=== PATIENT | male | born 1955 | race Caucasian/White ===

== ENCOUNTER 2017-04-11 11:46 | Day surgery (SDC) | payer MEDICARE ==
[~2017-04-11] VITALS: Ht 177.8 cm; Wt 61.2 kg
[~2017-04-11 11:46] MED LIST: /CELE20CA; CELE1CAP7 PO; COLA100C2; HYDR-3713 PO; KEFL500C; LYRI150C PO; OMEP40CA2 PO; PERC5TAB8; PRAV40TA2 PO; PREG25CA
[2017-04-11] MEDS ORDERED: dexameTHASONE 4 MG/ML 1ML VIAL (J1100) IV ONE (12:00)
[2017-04-11] MEDS ORDERED: LR 1,000 ML IV ONE (12:00)
[2017-04-11] MEDS ORDERED: OXYMETAZOLINE NASAL SPRAY (AFRIN) As Ordered ONE (12:56)
[2017-04-11] MEDS ORDERED: LIDOCAINE W/EPINEPHRINE 1% 20ML VIAL As Ordered ONE (12:56)
[2017-04-11] MEDS ORDERED: ALBUTEROL SULFATE 2.5 MG/0.5 ML INH NEB SOLN As Ordered ONE (13:13)
[2017-04-11] MEDS ORDERED: METHYLENE BLUE 0.5% (5MG/ML) 10 ML AMP (PROVAYBLUE)(Q9968 PER 1MG) As Ordered ONE (13:39)
[2017-04-11] MEDS ORDERED: fentaNYL 100 MCG/2 ML INJECTION (J3010) As Ordered ONE (13:47)
[2017-04-11] MEDS ORDERED: MIDAZOLAM INJ 2 MG/2 ML VIAL (J2250) As Ordered ONE (13:47)
[2017-04-11] MEDS ORDERED: SUCCINYLCHOLINE 100 MG/5 ML SYRINGE (J0330) As Ordered ONE (13:55)
[2017-04-11] MEDS ORDERED: ONDANSETRON 4MG/2ML VIAL (J2405) As Ordered ONE (13:55)
[2017-04-11] MEDS ORDERED: PROPOFOL 200 MG/20 ML VIAL As Ordered ONE (13:55)
[2017-04-11] MEDS ORDERED: ROCURONIUM BROMIDE 50 MG/5 ML VIAL/SYRINGE As Ordered ONE (13:55)
[2017-04-11] MEDS ORDERED: SUGAMMADEX SODIUM 500 MG/5 ML VIAL (BRIDION) As Ordered ONE (14:10)
[2017-04-11] MEDS: fentaNYL 100 MCG/2 ML INJECTION (J3010) IV PRN ×2 (15:10→15:19)
[2017-04-11] MEDS ORDERED: PERCOCET 5MG/325MG TAB PO PRN (15:15)
[2017-04-11] MEDS ORDERED: ONDANSETRON 4MG/2ML VIAL (J2405) IV PRN (15:15)
[2017-04-11] MEDS ORDERED: HYDROmorphone HCL 1 MG/ML SYRINGE (J1170) IV PRN (15:15)
[2017-04-11] MEDS ORDERED: LR 1,000 ML IV SCH ×2 (15:15)
[2017-04-11 15:55] VITALS: BP 134/77
--- NOTE | 2017-04-19 15:37 | RO ---
DATE OF PROCEDURE: 04/11/2017 PREOPERATIVE DIAGNOSIS: Dysphonia. POSTOPERATIVE DIAGNOSIS: Dysphonia. PROCEDURE: Direct suspension microlaryngoscopy with biopsy of the left and the right vocal cords. SURGEON: Angel Alonzo MD DIGITAL MUSIC INSTRUCTOR: ANESTHESIA: General. CLINICAL PREAMBLE: This 62-year-old man presented to the office with history of dysphonia. Flexible laryngoscopy revealed irregular mucosa of the left as well as the right vocal cords. Management options including surgery listed above have been discussed. Patient understood and consented to the procedure. DESCRIPTION OF PROCEDURE: Patient was identified in preoperative holding and brought to the operating room in stable condition. In supine position on the operating table, patient received general anesthesia followed by orotracheal intubation without incident. Patient prepped and draped in usual sterile fashion for the procedure. Bimanual palpation of the oral tongue, base of tongue, lateral and posterior pharyngeal wall was negative for palpable nodule. The upper dentition was protected. The Dedo-Pilling laryngoscope was introduced into the oral cavity. Inspection of the mucosa of the oral cavity, oropharynx, supraglottis, hypopharynx was carried out and was found to be free of mucosal lesion. The Dedo-Pilling laryngoscope was then suspended on a Arndt stand to allow visualization of the glottis. The right vocal cord appeared to have mucosal lesion on its entire length. The lesion crossed the anterior commissure onto the anterior one-third of the left vocal cord. Biopsy was performed from the right as well as the left vocal cords. Hemostasis was achieved using pledgets soaked in Afrin solution. At the end of the procedure, sponge and instrument counts were correct. No complication was encountered. Estimated blood loss was less than 1 mL. General anesthesia was reversed, and patient was extubated and brought to recovery room in stable condition.
[2017-06-28] MEDS ORDERED: SILV40CR EXT (15:27)
== END 2017-04-11 16:05 | disposition home or self-care (01) ==
LOC: M SDC 11:46
PROVIDERS: ATTEND Otolaryngology
DX: C32.0 Malignant neoplasm of glottis (principal); R49.0 Dysphonia; G60.9 Hereditary and idiopathic neuropathy, unspecified; F17.210 Nicotine dependence, cigarettes, uncomplicated; M54.5 Low back pain; Z86.79 Personal history of other diseases of the circulatory system; Z79.899 Other long term (current) drug therapy
CPT/HCPCS: 31536; 88305; 88342; J0330; J1100; J2250; J2405; J3010

== ENCOUNTER → 2017-04-26 | Outpatient (CLI) | payer MEDICARE ==
[~2017-04-26] MED LIST changes: +SILV40CR EXT
--- NOTE | 2017-04-26 16:59 | REP ---
Whole body PET CT scan: The study is correlated with the CT of the neck dated 01/17/2017. Whole-body scanning is performed from skull base to the upper thighs. Neck and supraclavicular areas: There are no hypermetabolic foci. Chest: There are no hypermetabolic foci. Abdomen, pelvis and upper thighs: There is borderline hypermetabolic uptake in a normal size left femoral noted with a standard uptake value of 3.7. There are no other hypermetabolic foci. Impression: There is borderline hypermetabolic uptake in a normal size left femoral noted. Otherwise, there are no hypermetabolic foci. Specifically there are no foci in the neck or supraclavicular areas. The studies performed with 10 mCi of F 18 FDG Signed by Logan Benitez MD 04/26/2017 04:50 P
== END ==
LOC: M PLARAD 11:49
PROVIDERS: ATTEND Otolaryngology
DX: C32.0 Malignant neoplasm of glottis (principal)
CPT/HCPCS: 78815; A9552

== ENCOUNTER → 2017-05-02 | Outpatient (CLI) | payer MEDICARE ==
--- NOTE | 2017-05-03 05:15 | RADONC ---
RADIATION ONCOLOGY CONSULTATION NOTE: DATE: 05/02/2017 CHART NUMBER: [id number]. DIAGNOSIS: Vocal cord cancer. STAGE: Stage I, [id number]. ECOG PERFORMANCE STATUS: Zero. CONSULTATION NOTE: Mr. 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 HISTORY OF PRESENT ILLNESS: The patient was in his usual state of health until approximately 3 years ago, when he first noticed some hoarseness. This hoarseness became more progressive over the past 3 months. He was referred to Dr. Alonzo and laryngoscopic evaluation was undertaken, which revealed irregular mucosa over both the left and right vocal cords. A biopsy was done and pathology revealed well-differentiated invasive squamous cell carcinoma involving both vocal cords. He is now being referred to us for consideration of definitive external beam radiation therapy. PAST MEDICAL HISTORY: The patient's past medical history is positive for arthritis and a previous DVT. ALLERGIES: The patient has NO KNOWN DRUG ALLERGIES. SOCIAL HISTORY: The patient has smoked one half pack of cigarettes per day for 45 years. He drinks alcohol rarely. FAMILY HISTORY: The patient's family history is positive for laryngeal carcinoma in both parents. REVIEW OF SYSTEMS: The patient's review of systems is positive for some physical limitations secondary to decreased energy and generalized weakness. He reports some discomfort upon swallowing and anorexia with some weight loss. He denies nausea, vomiting, fevers, chills, night sweats, diplopia, headaches, chest pain, shortness of breath, urinary or bowel difficulties, bone pain or neurological problems. PHYSICAL EXAMINATION: The patient is a well-developed, well-nourished white male in no acute distress. HEENT exam is normocephalic, atraumatic. Extraocular movements are intact. Oral cavity examination reveals no evidence of nodularity ulceration or disease. Fiberoptic laryngoscopic evaluation was deferred. There is no palpable cervical, supraclavicular, infraclavicular, axillary or inguinal lymphadenopathy present. His lungs are generally clear to auscultation and percussion. His heart has regular rate and rhythm. His abdomen is benign with no hepatosplenomegaly, masses or tenderness. Skeletal examination reveals no tenderness to pressure percussion of the bony skeleton. Extremities reveal no clubbing, cyanosis or edema. Neurologic exam is grossly intact, as is the remainder of the physical examination. ASSESSMENT: Mr. 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 Clearly the patient is a candidate for this treatment and I have so informed him. I have discussed with the patient in detail the potential benefits as well as possible acute and chronic sequelae of external beam radiation therapy. We have discussed logistics of treatment planning, simulation and subsequent fractionated daily radiation treatments. I have scheduled the patient for the next available simulation slot and radiation treatments will begin subsequently. Thank you for allowing us to participate in the care of this very pleasant gentleman. If I could be of any further assistance or provide you with any information, please free to contact me anytime. As always, warm regards. cc: MD Angel Maurer MD
== END ==
LOC: M ONCR 13:59
PROVIDERS: ATTEND Radiology Radiation Oncology
DX: C32.0 Malignant neoplasm of glottis (principal)

== ENCOUNTER 2017-05-09 14:07 | Outpatient (RCR) | payer MEDICARE ==
[~2017-05-09 14:07] MED LIST changes: -SILV40CR EXT
--- NOTE | 2017-05-10 07:42 | RADONC ---
RADIATION ONCOLOGY SIMULATION NOTE DATE: 05/09/2017 CHART NUMBER: [id number] Mr. Dsouza was taken to the CT scan for CT simulation of his larynx field. CT was accomplished without difficulty or discomfort. Radiation treatment planning is underway and radiation treatments will begin subsequently. An immobilization device including a mask was made. It was made without difficulty or discomfort. It will be used throughout the course of treatment. I was physically present throughout the course of CT simulation.
[2017-06-28] MEDS ORDERED: SILV40CR EXT (15:27)
== END 2017-05-11 ==
LOC: M ONCR 14:07
PROVIDERS: ATTEND Radiology Radiation Oncology
DX: C32.0 Malignant neoplasm of glottis (principal)

== ENCOUNTER → 2017-05-09 | Outpatient (CLI) | payer MEDICARE ==
[2017-05-09 15:47] LABS: MEAN CORPUSCULAR HEMOGLOBIN 31.9 pg (27.0-33.0); MEAN CORPUSCULAR HGB CONC 33.9 g/dl (32.0-36.5); MEAN CORPUSCULAR VOLUME 93.8 fl (80.0-96.0); RED CELL DISTRIBUTION WIDTH 14.1 % (11.5-14.5); WHITE BLOOD COUNT 6.3 K/mm3 (4.0-10.0)
== END ==
LOC: M RAD 13:55
PROVIDERS: ATTEND Radiology Radiation Oncology
DX: C32.0 Malignant neoplasm of glottis (principal)

== ENCOUNTER 2017-05-12 14:14 | Outpatient (RCR) | payer MEDICARE ==
--- NOTE | 2017-05-23 07:55 | RADONC ---
RADIATION ONCOLOGY PROGRESS NOTE: DATE: 05/22/2017 CHART NUMBER: [id number] Mr. Dsouza underwent his first fraction of radiation today to his larynx for a dose of 225 cGy. Radiation was tolerated without difficulty or discomfort. The patient's review of systems continues to show some hoarseness and discomfort upon swallowing, which is unchanged since time of consultation. His physical exam continues to show no skin changes secondary to radiation which just began today. The remainder of his physical exam also remained totally unchanged. Mr. Dsouza tolerated his treatments quite well and radiation will continue as scheduled.
--- NOTE | 2017-05-30 07:51 | RADONC ---
RADIATION ONCOLOGY PROGRESS NOTE DATE: 05/29/2017 CHART NUMBER: [id number] Mr. Dsouza is presently at a dose of 1350 cGy to his larynx and is tolerating treatments quite well at this point with no complaints related to his radiation therapy. He is having no difficulty swallowing or other problems. REVIEW OF SYSTEMS: The patient's review of systems is noncontributory. Denies nausea, vomiting, fevers, chills, night sweats, diplopia, headaches, anxiety or depression, anorexia, weight loss, visual disturbances, chest pain, urinary or bowel difficulties, bone pain, or neurological problems. PHYSICAL EXAMINATION: The patient's skin is in excellent condition with no evidence of radiation change present. There is no moist or dry desquamation. The remainder of his physical exam remains unchanged. Mr. Dsouza is tolerating treatments quite well and radiation will continue as scheduled.
--- NOTE | 2017-06-06 08:28 | RADONC ---
RADIATION ONCOLOGY PROGRESS NOTE DATE: 06/05/2017 CHART NUMBER: [id number] Mr. Dsouza is presently at a dose of 2475 cGy to his larynx and overall is tolerating treatments quite well with no significant difficulties related to his radiation therapy other than a sore throat. REVIEW OF SYSTEMS: The patient's review of systems is positive for hoarseness as well as discomfort upon swallowing but is otherwise noncontributory. He denies nausea, vomiting, fevers, chills, night sweats, diplopia, headaches, anxiety or depression, anorexia, weight loss, visual disturbances, chest pain, urinary or bowel difficulties, bone pain or neurological problems. PHYSICAL EXAMINATION: The patient's skin is in good condition with no evidence of radiation change present. There is no moist or dry desquamation. The remainder of his physical exam remains unchanged. Mr. Dsouza is tolerating treatments quite well and radiation will continue as scheduled.
[2017-06-28] MEDS ORDERED: SILV40CR EXT (15:27)
== END 2017-06-10 ==
LOC: M ONCR 14:14
PROVIDERS: ATTEND Radiology Radiation Oncology
DX: C61 Malignant neoplasm of prostate (principal)

== ENCOUNTER → 2017-05-25 | Outpatient (CLI) | payer OTHER, MEDICARE ==
[~2017-05-25] MED LIST changes: +SILV40CR EXT
[2017-05-31 10:14] LABS: ACETAMINOPHEN Negative ug/mL (10-30); AMITRIPTYLINE None Detected (Not Estab.); BUTALBITAL None Detected ug/mL (1-10); DESIPRAMINE None Detected (Not Estab.); DIAZEPAM None Detected ug/mL (0.1-0.9); DOXEPIN None Detected (Not Estab.); ETHANOL Negative % (0.000-0.010); NORCHLORDIAZEPOXIDE None Detected ug/mL (0.1-0.6); NORDIAZEPAM None Detected ug/mL (0.1-1.4); NORDOXEPIN None Detected (Not Estab.); NORTRIPTYLINE None Detected ng/mL (50-150); PENTOBARBITAL None Detected ug/mL (1-5); PHENOBARBITAL None Detected ug/mL (15-40); PHENYTOIN None Detected ug/mL (10.0-20.0)
== END ==
LOC: M LAB 15:43
PROVIDERS: ATTEND Physical Medicine & Rehabilitation
DX: M51.27 Other intervertebral disc displacement, lumbosacral region (principal)
CPT/HCPCS: 36415; 84600; G0480

== ENCOUNTER → 2017-08-02 | Outpatient (CLI) | payer MEDICARE ==
--- NOTE | 2017-08-05 11:19 | RADONC ---
RADIATION ONCOLOGY FOLLOWUP NOTE DATE: 08/02/2017 CHART NUMBER: [id number] DIAGNOSIS: Vocal cord cancer. STAGE: I, [id number]. ECOG PERFORMANCE STATUS: 0. FOLLOWUP NOTE: Mr. Dsouza is a very pleasant 62-year-old white male with the diagnosis of a stage I, [id number], well-differentiated squamous cell carcinoma of his right and left vocal cords who is presenting to us today for routine followup visit 1 month post completion of external beam radiation therapy. The patient presents today reporting that he is doing quite well with no complaints at this time related to his radiation therapy or disease. He has no difficulty swallowing or pain at this point. He does continue to have some hoarseness which he notes is improving significantly over the past few days especially. REVIEW OF SYSTEMS: The patient's review of systems is positive for some hoarseness, but is otherwise noncontributory. Denies nausea, vomiting, fevers, chills, night sweats, diplopia, headaches, anxiety or depression, anorexia, weight loss, visual disturbances, chest pain, urinary or bowel difficulties, bone pain, or neurological problems. PHYSICAL EXAMINATION: The patient is a well-developed, well-nourished white male in no acute distress. HEENT: Exam is normocephalic, atraumatic. Extraocular movements are intact. There is no palpable cervical, supraclavicular, infraclavicular, axillary or inguinal lymphadenopathy present. The patient's oral cavity reveals no lesions, nodularity or evidence of disease. Fiberoptic laryngoscopic evaluation was deferred. His lungs are clear to auscultation and percussion. His heart has a regular rate and rhythm. The remainder of the physical exam remains unchanged. Mr. Dsouza is clinically doing well at this point. I have instructed him to set up an appointment to see Dr. Alonzo on a routine basis for laryngoscopic evaluation. In the meantime, we will see the patient again in 6 months for routine followup. cc: MD Angel Maurer MD
== END ==
LOC: M ONCR 15:41
PROVIDERS: ATTEND Radiology Radiation Oncology
DX: Z08 Encounter for follow-up examination after completed treatment for malignant neoplasm (principal); Z85.21 Personal history of malignant neoplasm of larynx

== ENCOUNTER → 2017-12-06 | Outpatient (CLI) | payer MEDICARE ==
[~2017-12-06] MED LIST changes: -/CELE20CA; -CELE1CAP7 PO; -COLA100C2; -HYDR-3713 PO; +ISOVUE-370 76% 100ML VIAL (Q9967) As Ordered; -KEFL500C; -LYRI150C PO; -OMEP40CA2 PO; -PERC5TAB8; -PRAV40TA2 PO; -PREG25CA; -SILV40CR EXT
== END ==
LOC: M RAD 14:57
DX: C32.0 Malignant neoplasm of glottis (principal)
CPT/HCPCS: Q9967

== ENCOUNTER → 2017-12-29 | Outpatient (CLI) | payer MEDICARE | LOC: M ST 12:29 | DX: R13.10 Dysphagia, unspecified (principal) | CPT/HCPCS: 74230 ==

== ENCOUNTER → 2018-04-02 | Outpatient (CLI) | payer MEDICARE ==
[2018-04-02 15:06] LABS: FREE T4 0.92 NG/DL (0.76-1.46); THYROID STIMULATING HORMONE 0.702 uIU/ML (0.358-3.740)
== END ==
LOC: M LAB 14:00
DX: R63.4 Abnormal weight loss (principal)
CPT/HCPCS: 84443

== ENCOUNTER → 2018-12-04 | Outpatient (CLI) | payer MEDICARE ==
[~2018-12-04] MED LIST changes: +/CELE20CA; +CELE1CAP7 PO; +COLA100C2; +E-Z-GAS II EFFERVESCENT PACKET (SODIUM BICARB./CITRIC ACID/SIMETHICONE) As Ordered ONE; +E-Z-HD 98% w/w 340GM SUSP BTL As Ordered ONE; +E-Z-PAQUE 96% w/w SUSP 176GM BTL As Ordered ONE; +HYDR-3713 PO; -ISOVUE-370 76% 100ML VIAL (Q9967) As Ordered; +KEFL500C; +LYRI150C PO; +OMEP40CA2 PO; +PERC5TAB8; +PRAV40TA2 PO; +PREG25CA; +SILV40CR EXT
--- NOTE | 2018-12-04 17:36 | REP ---
Esophagram The procedure was performed under the direct supervision of Dr. Torres. The images were reviewed with Dr. Torres. A single view PA chest x-ray is submitted as a bakery technician film. The superior mediastinal structures are midline. The heart size is within normal limits. The lungs are clear. Liquid barium was given in the erect position. The patient took one swallow of barium. During the oral and pharyngeal stages of deglutition there is late inversion of the epiglottis. There is pooling in the vallecula which eventually drops into the trachea causing aspiration with cough response. At this point the remainder of the examination was discontinued. Impression: During the oral and pharyngeal stages of deglutition there is late inversion of the epiglottis. There is pooling in the vallecula which eventually drops into the trachea causing aspiration with cough response. 0.2 minutes of fluoro time was utilized for this procedure. Reviewed by JOSE D Noyola 12/04/2018 04:42 P Electronically Signed by Alireza Torres MD 12/04/2018 05:28 P
== END ==
LOC: M RAD 09:54
PROVIDERS: ATTEND Physician Assistant Medical
DX: R13.10 Dysphagia, unspecified (principal); R10.13 Epigastric pain; T17.920A Food in respiratory tract, part unspecified causing asphyxiation, initial encounter; Y84.2 Radiological procedure and radiotherapy as the cause of abnormal reaction of the patient, or of later complication, without mention of misadventure at the time of the procedure; J39.8 Other specified diseases of upper respiratory tract

== ENCOUNTER → 2018-12-21 | Outpatient (CLI) | payer MEDICARE ==
[~2018-12-21] MED LIST changes: -/CELE20CA; +CELE1CAP4; -E-Z-GAS II EFFERVESCENT PACKET (SODIUM BICARB./CITRIC ACID/SIMETHICONE) As Ordered ONE; -E-Z-HD 98% w/w 340GM SUSP BTL As Ordered ONE; -E-Z-PAQUE 96% w/w SUSP 176GM BTL As Ordered ONE
--- NOTE | 2018-12-24 13:49 | NUR ---
Pt seen for modified barium swallow study d/t increased difficulty in swallowing all textures. Pt presents with mild-moderate pharyngeal phase dysphagia. Aspiration of thin liquids and residue in the pharynx. Despite aspiration of thin liquids, Pt has not had history of pneumonia. Recommend: Dysphagia therapy for improved laryngeal function Recommend: Soft solids with extra sauces/gravies/condiments, thin liquids Continue chin tuck. High caloric food choices. Addendum: 12/24/18 at 1351 by AL DIEGO [facility] Amended: Links added.
--- NOTE | 2018-12-26 11:43 | REP ---
Modified barium swallow: The study is performed with fluoroscopy. The patient is fed multiple foodstuffs there in consistencies by the speech pathologist, Clau Mojica. There are multiple episodes of small volumes of laryngeal penetration. Please refer to the speech pathologist report for more detailed description . Fluoroscopic exposure time is 3.6 minutes. Electronically Signed by Logan Benitez MD 12/26/2018 11:34 A
== END ==
LOC: M ST 14:12
PROVIDERS: ATTEND Physician Assistant Medical
DX: R13.10 Dysphagia, unspecified (principal)

== ENCOUNTER 2019-02-22 12:21 | Day surgery (SDC) | payer MEDICARE ==
[~2019-02-22] VITALS: Ht 175.3 cm; Wt 56.4 kg
[~2019-02-22 12:21] MED LIST changes: +ACET-645 PO; +ASPI81TA85 PO; +DULO1CAP PO; +LIDOCAINE 2% INJ 100 MG/5 ML SDV (FOR ANES.) As Ordered ONE; +PROPOFOL 200 MG/20 ML VIAL As Ordered ONE; +RANI150T PO
[2019-02-22] MEDS ORDERED: fentaNYL 100 MCG/2 ML INJECTION (J3010) As Ordered ONE (12:43)
[2019-02-22] MEDS ORDERED: NS 1,000 ML IV ONE (13:15)
--- NOTE | 2019-02-22 13:29 | ROOR ---
Patient Name: Nawaf Dsouza Procedure Date: 02/22/2019 1:14 PM Date of : 1955 Age: 63 Room: [facility] Gender: Male Note Status: Finalized Procedure: Upper GI endoscopy Indications: Dysphagia Providers: Nawaf ESTRADA MD Referring MD: ZOYA KINNEY MD Requesting Provider: Medicines: Monitored Anesthesia Care Complications: No immediate complications. Procedure: Pre-Anesthesia Assessment: - The heart rate, respiratory rate, oxygen saturations, blood pressure, adequacy of pulmonary ventilation, and response to care were monitored throughout the procedure. The Endoscope was introduced through the mouth, and advanced to the second part of duodenum. The upper GI endoscopy was accomplished without difficulty. The patient tolerated the procedure well. Findings: Localized post-therapy mucosal sclerosis was found at the cricopharyngeus. No gross lesions were noted in the entire esophagus. The exam of the esophagus was otherwise normal. The entire examined stomach was normal. The examined duodenum was normal. Impression: - Esophageal mucosal sclerosis, but no significant stricture is seen in proximal esophagus. Easily passable - The esophagus is otherwise normal. - Normal stomach. - Normal examined duodenum. - No specimens collected. Recommendation: - Return to referring physician as previously scheduled. - Consideration may be given to speech therapy referral for oropharyngeal dysphagia (see results of Ba swallow for swallowing mechanism dysfunction). Nawaf Estrada MD Nawaf ESTRADA MD 02/22/2019 1:28:38 PM Electronically signed by Nawaf ESTRADA MD Number of Addenda: 0 Note Initiated On: 02/22/2019 1:14 PM Estimated Blood Loss: Estimated blood loss: none.
[2019-02-22 14:02] VITALS: BP 115/73
== END 2019-02-22 14:02 | disposition home or self-care (01) ==
LOC: M OPP 12:21
PROVIDERS: ATTEND Internal Medicine Gastroenterology
DX: K22.8 Other specified diseases of esophagus (principal); R13.10 Dysphagia, unspecified
CPT/HCPCS: 43235; J3010

== ENCOUNTER → 2019-06-13 | Outpatient (CLI) | payer MEDICARE ==
[~2019-06-13] MED LIST changes: -DULO1CAP PO; +DULO1CAP4 PO; -LIDOCAINE 2% INJ 100 MG/5 ML SDV (FOR ANES.) As Ordered ONE; -PROPOFOL 200 MG/20 ML VIAL As Ordered ONE
[2019-06-13 15:11] LABS: BLOOD UREA NITROGEN 9 MG/DL (7-18); CREATININE FOR GFR 0.89 MG/DL (0.70-1.30); GLOMERULAR FILTRATION RATE > 60.0 (>49)
== END ==
LOC: M LAB 13:43
PROVIDERS: ATTEND Otolaryngology
DX: R49.0 Dysphonia (principal)

== ENCOUNTER → 2019-06-18 | Outpatient (CLI) | payer MEDICARE ==
[~2019-06-18] MED LIST changes: +ISOVUE-370 76% 100ML VIAL (Q9967) As Ordered ONE
--- NOTE | 2019-06-19 10:14 | REP ---
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 Persistent dysphonia and mass on vocal cords. Rule out recurrence. Comparison CT study is from December 06, 2017. CT contrast dose: 75 ml of intravenous Isovue 370. CT findings: Visualized paranasal sinuses are clear. There are mild degenerative spondylosis changes in the cervical spine. No bony destructive lesion is seen. Parotid and submandibular glands are normal and symmetric. Thyroid lobes are homogeneous and normal in appearance. There is some vascular calcification in the carotid bifurcations bilaterally. The right vertebral artery is smaller than its left-sided counterpart. Tonsillar and peritonsillar soft tissues are unremarkable. The epiglottis is normal in appearance. Aryepiglottic folds are unremarkable. There is subtle asymmetry at the level of the vocal cords with slight thickening on the right anteriorly. No supraglottic or colonic mass lesion is visualized. Thyroid cartilage, cricoid cartilage, and arytenoid cartilages are unremarkable. There is no evidence of adenopathy. Impression: Subtle fullness in the region of the vocal cords on the right. No definite glottic mass lesion. There is no evidence of lymphadenopathy. Electronically Signed by Alireza Torres MD 06/19/2019 12:57 P
== END ==
LOC: M RAD 16:58
PROVIDERS: ATTEND Otolaryngology
DX: C32.0 Malignant neoplasm of glottis (principal)
CPT/HCPCS: 70491; Q9967

== ENCOUNTER 2019-07-10 07:05 | Day surgery (SDC) | payer MEDICARE ==
[~2019-07-10] VITALS: Ht 177.8 cm; Wt 55.3 kg
[~2019-07-10 07:05] MED LIST changes: -ISOVUE-370 76% 100ML VIAL (Q9967) As Ordered ONE; +LR 1,000 ML IV ONE; -OMEP40CA2 PO; +OMEP40CA97 PO; +dexameTHASONE 4 MG/ML 1ML VIAL (J1100) IV ONE
[2019-07-10] MEDS ORDERED: ONDANSETRON 4MG/2ML VIAL (J2405) As Ordered ONE (07:54)
[2019-07-10] MEDS ORDERED: LIDOCAINE 2% INJ 100 MG/5 ML SDV (FOR ANES.) As Ordered ONE (07:54)
[2019-07-10] MEDS ORDERED: PROPOFOL 200 MG/20 ML VIAL As Ordered ONE (07:54)
[2019-07-10] MEDS ORDERED: ROCURONIUM BROMIDE 50 MG/5 ML VIAL As Ordered ONE (07:54)
[2019-07-10] MEDS ORDERED: dexameTHASONE 4 MG/ML 1ML VIAL (J1100) As Ordered ONE (07:54)
[2019-07-10] MEDS ORDERED: fentaNYL 100 MCG/2 ML INJECTION (J3010) As Ordered ONE (08:12)
[2019-07-10] MEDS ORDERED: MIDAZOLAM INJ 2 MG/2 ML VIAL (J2250) As Ordered ONE (08:12)
[2019-07-10] MEDS ORDERED: OXYMETAZOLINE NASAL SPRAY (AFRIN) As Ordered ONE (08:36)
[2019-07-10] MEDS ORDERED: LIDOCAINE W/EPINEPHRINE 1% 20ML VIAL As Ordered ONE (08:36)
[2019-07-10] MEDS ORDERED: METHYLENE BLUE 0.5% (5MG/ML) 10 ML AMP (PROVAYBLUE)(Q9968 PER 1MG) As Ordered ONE (08:36)
[2019-07-10] MEDS ORDERED: SUGAMMADEX SODIUM 500 MG/5 ML VIAL (BRIDION) As Ordered ONE (09:55)
[2019-07-10] MEDS ORDERED: PERCOCET 5MG/325MG TAB PO PRN (11:00)
[2019-07-10] MEDS ORDERED: ONDANSETRON 4MG/2ML VIAL (J2405) IV PRN (11:00)
[2019-07-10] MEDS ORDERED: MEPERIDINE INJ 25 MG/ML VIAL (J2175) IV PRN (11:00)
[2019-07-10] MEDS ORDERED: fentaNYL 100 MCG/2 ML INJECTION (J3010) IV PRN (11:00)
[2019-07-10] MEDS ORDERED: METOCLOPRAMIDE INJ 10MG/2ML VIAL (J2765) IV PRN (11:00)
[2019-07-10] MEDS ORDERED: LR 1,000 ML IV SCH ×2 (11:00)
[2019-07-10 12:45] VITALS: BP 124/70
--- NOTE | 2019-08-02 06:19 | RO ---
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 POSTOPERATIVE DIAGNOSES: History of laryngeal carcinoma and ulceration of the vocal cord and dysphonia. PROCEDURE PERFORMED: Direct suspension microlaryngoscopy with biopsy of the left and right vocal cord. SURGEON: Angel Alonzo MD PATTERN SETTER: ANESTHESIA: General. CLINICAL PREAMBLE: This 64-year-old man has had laryngeal carcinoma, treated with radiation therapy approximately 2 years ago. He presented to the office with a 1-month history of degeneration of his voice. Flexible laryngoscopy revealed bilateral white exudative mass over the left and right vocal cords involving the anterior commissure area. Management options, including surgery listed above, have been discussed. Patient understood and consented to the procedure. INTRAOPERATIVE FINDINGS: Bilateral exudative masses consistent history of necrosis. DESCRIPTION OF PROCEDURE/OPERATING ROOM (OR) NARRATION: Patient was identified in preoperative holding and brought to the operating room in stable condition. In supine position on the operating room table, general anesthesia was given, followed by orotracheal intubation without incident. Patient was prepped and draped in the usual fashion for the procedure. Bimanual palpation of the oral cavity, oral tongue, base of tongue, and bilateral posterior pharyngeal wall showed no evidence of discrete lesion. Upper dentition were then protected. The Dedo-Piling laryngoscope was used to inspect the mucosa of the oral cavity and oropharynx, which showed no evidence of mucosal lesion. The supraglottis was free of mucosal lesion. Piriform sinuses and the postcricoid region were also clear. The Dedo-Piling laryngoscope was suspended with Arndt stand to visualize the vocal cord area. White exudative material was noted on the superior surface of the left and right vocal cord extending into the anterior commissure. Biopsy was obtained from the midportion of the left and the right vocal cord. The patient was then carefully carried out to remove the exudative material, while preserving the of the anterior commissure. Hemostasis was observed by placing cottonoid pledgets soaked in Afrin solution. At the end of the procedure, sponge and instrument counts were correct. No complication was encountered. Estimated blood loss was less than 5 mL. Anesthesia was reversed, and the patient extubated and brought to recovery room in stable condition
== END 2019-07-10 12:55 | disposition home or self-care (01) ==
LOC: M SDC 07:05
PROVIDERS: ATTEND Otolaryngology
DX: J38.3 Other diseases of vocal cords (principal); R49.0 Dysphonia; E78.00 Pure hypercholesterolemia, unspecified; F32.9 Major depressive disorder, single episode, unspecified; K21.9 Gastro-esophageal reflux disease without esophagitis; F41.9 Anxiety disorder, unspecified; Z79.899 Other long term (current) drug therapy; Z95.828 Presence of other vascular implants and grafts; Z92.3 Personal history of irradiation; Z68.1 Body mass index [BMI] 19.9 or less, adult; Z85.21 Personal history of malignant neoplasm of larynx
CPT/HCPCS: 31535; 88305; J1100; J2250; J2405; J3010; Q9968

== ENCOUNTER → 2019-08-19 | Outpatient (CLI) | payer MEDICARE ==
[~2019-08-19] MED LIST changes: -LR 1,000 ML IV ONE; -dexameTHASONE 4 MG/ML 1ML VIAL (J1100) IV ONE
[2019-08-19 15:28] LABS: HEMATOCRIT 46.4 % (42.0-52.0); HEMOGLOBIN 15.1 g/dl (13.5-17.5); MEAN CORPUSCULAR HEMOGLOBIN 31.1 pg (27.0-33.0); MEAN CORPUSCULAR HGB CONC 32.5 g/dl (32.0-36.5); MEAN CORPUSCULAR VOLUME 95.5 fl (80.0-96.0); PLATELET COUNT, AUTOMATED 284 10^3/uL (150-450); RED BLOOD COUNT 4.86 10^6/uL (4.30-6.10); WHITE BLOOD COUNT 7.8 10^3/uL (4.0-10.0)
[2019-08-19 15:43] LABS: HEMOGLOBIN A1c 5.9 %
[2019-08-19 15:50] LABS: ALBUMIN 3.8 GM/DL (3.2-5.2); ALT/SGPT 21 U/L (12-78); BILIRUBIN,TOTAL 0.4 MG/DL (0.2-1.0); BLOOD UREA NITROGEN 9 MG/DL (7-18); CALCIUM LEVEL 9.3 MG/DL (8.8-10.2); CARBON DIOXIDE LEVEL 33 MEQ/L (21-32); CHLORIDE LEVEL 102 MEQ/L (98-107); GLOMERULAR FILTRATION RATE > 60.0 (>49); GLUCOSE, FASTING 99 MG/DL (70-100); POTASSIUM SERUM 4.2 MEQ/L (3.5-5.1); SODIUM LEVEL 139 MEQ/L (136-145); TOTAL PROTEIN 6.7 GM/DL (6.4-8.2)
--- NOTE | 2019-08-19 15:58 | REP ---
REASON: Skin disease. COMPARISON: 08/25/2008. FINDINGS: The superior mediastinal structures are midline. The cardiac silhouette is unremarkable in size, shape, and position. The diaphragmatic surfaces of the lungs are regular, and the costophrenic angles are clear. The pulmonary pillai are clear. The imaged osseous structures are intact. IMPRESSION: There is no acute cardiopulmonary disease. No significant change compared to the prior exam. Electronically Signed by Jesus Jean DO 08/19/2019 04:26 P
== END ==
LOC: M LAB 14:49
PROVIDERS: ATTEND Surgery
DX: L59.9 Disorder of the skin and subcutaneous tissue related to radiation, unspecified (principal); Z79.899 Other long term (current) drug therapy

== ENCOUNTER → 2020-09-17 | Outpatient (CLI) | payer MEDICARE ==
[~2020-09-17] MED LIST changes: -ASPI81TA85 PO; +ASPI81TA86 PO; +E-Z-GAS II EFFERVESCENT PACKET (SODIUM BICARB./CITRIC ACID/SIMETHICONE) As Ordered ONE; +E-Z-HD 98% w/w 340GM SUSP BTL As Ordered ONE; +E-Z-PAQUE 96% w/w SUSP 176GM BTL As Ordered ONE; +ISOVUE-370 76% 100ML VIAL As Ordered ONE
--- NOTE | 2020-09-17 09:07 | REP ---
INDICATION: DYSPHAGIA CT 1ST BARIUM SWALLOW 2ND. COMPARISON: Comparison CT studies of the neck are reviewed, the most recent of which is from June 18, 2019 and the most remote January 17, 2017. There is a history of glottic level laryngeal carcinoma. Comparison PET-CT study April 26, 2017.. TECHNIQUE: Helical scanning is acquired and 3 mm axial images are re-formatted. Coronal and sagittal MPR images are provided. The contrast enhancement dose is 75 mL of intravenous Isovue 370. FINDINGS: Preliminary digital tree scout radiograph demonstrates that the patient is edentulous. There is soft tissue fullness in the supraglottic larynx on lateral view. The epiglottis appears normal. On axial images, there is asymmetric soft tissue fullness in the left vallecular at the base of the left aryepiglottic fold with mass effect. The area in question is approximately 14 mm in greatest dimension. This is unchanged from the June 18, [address] study. There is no visible lymphadenopathy. No other mass lesion is seen. Floor of mouth and tongue base structures are unremarkable. Tonsillar and peritonsillar soft tissues are intact in appearance. Parotid and submandibular glands are normal and symmetric. Thyroid lobes are symmetric and homogeneous. There is some vascular calcification at the carotid bifurcations bilaterally. No high-grade stenosis is apparent. The right vertebral artery is quite small compared to the left but both are patent. There are degenerative spondylosis changes in the cervical spine. No bony destructive lesion. IMPRESSION: Supraglottic mass effect on the left in the region of the vallecula, at the base of the left aryepiglottic fold. Findings consistent with recurrent malignancy. No visible adenopathy however. <Electronically signed by Robert Torres > 09/17/20 0904
--- NOTE | 2020-09-17 17:00 | REP ---
INDICATION: DYSPHAGIA CT 1ST BARIUM SWALLOW 2ND. TECHNIQUE: This procedure was performed by Chyna Bravo [facility], under the direct supervision of . Images were reviewed with prior to dictation. Liquid barium was given in the erect position, as well as liquid barium in the prone oblique position in order to perform a single contrast esophagram examination. FINDINGS: A single view PA chest x-ray is submitted as a media services coordinator film. The superior mediastinal structures are midline. The heart size is within normal limits. The lungs are clear. Pooling of barium in the vallecular space during the oral and pharyngeal stages of deglutition was again visualized, this pooling of barium again led to aspiration with a very weak cough response. No stricture or obstruction of the esophagus was visualized. Due to aspiration the exam was cut short and we were unable to evaluate for reflux or hiatal hernia. IMPRESSION: Limited esophagram due to aspiration. Pooling of barium in the vallecular space during the oral and pharyngeal stages of deglutition was again visualized, this pooling of barium again led to aspiration with a very weak cough response. 0.1 minutes of fluoroscopy time was utilized for this procedure. Some fluoroscopic images are performed with last image hold technology. These images require no additional radiation. <Electronically signed by Chyna Bravo > 09/17/20 1414 <Electronically signed by Logan Samuels > 09/17/20 [id number]
== END ==
LOC: M RAD 07:37
PROVIDERS: ATTEND Otolaryngology
DX: R13.10 Dysphagia, unspecified (principal); D38.0 Neoplasm of uncertain behavior of larynx; Z85.21 Personal history of malignant neoplasm of larynx
CPT/HCPCS: 70491; 74220; Q9967

== ENCOUNTER → 2020-10-24 | Outpatient (CLI) | payer MEDICARE ==
[~2020-10-24] MED LIST changes: +CELE1CAP9 PO; -E-Z-GAS II EFFERVESCENT PACKET (SODIUM BICARB./CITRIC ACID/SIMETHICONE) As Ordered ONE; -E-Z-HD 98% w/w 340GM SUSP BTL As Ordered ONE; -E-Z-PAQUE 96% w/w SUSP 176GM BTL As Ordered ONE; +ECOT81TA5 PO; -ISOVUE-370 76% 100ML VIAL As Ordered ONE; +SERT25TA21 PO
== END ==
LOC: M LABSMTC 09:33
PROVIDERS: ATTEND Anesthesiology
DX: Z01.812 Encounter for preprocedural laboratory examination (principal); Z20.822 Contact with and (suspected) exposure to COVID-19

== ENCOUNTER → 2020-10-31 | Outpatient (CLI) | payer MEDICARE | LOC: M LABSMTC 09:29 | PROVIDERS: ATTEND Anesthesiology | DX: Z01.812 Encounter for preprocedural laboratory examination (principal); Z20.822 Contact with and (suspected) exposure to COVID-19 ==

== ENCOUNTER 2020-11-05 10:37 | Day surgery (SDC) | payer MEDICARE ==
[~2020-11-05] VITALS: Ht 175.3 cm; Wt 54.1 kg
[~2020-11-05 10:37] MED LIST changes: +LIDOCAINE 1% MDV 20ML VIAL SQ PRN; +LR 1,000 ML IV ONE; +dexameTHASONE 4 MG/ML 1ML VIAL (J1100 PER 1MG) IV ONE
--- OUTSIDE RECORDS SUMMARY | 2020-11-05 10:45 | CCD | Continuity of Care Document ---
Author Author COLUMBA NUNEZ, Nawaf Fay [facility] Organization Unknown Address [address] [place] [id number] Phone [phone] Care Team Providers Care Pattern Painter Name Role Phone Arcadio Matos M.D. 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 Dysphagia Angel Alonzo MD Onset: 04/02/2018 Social History Type Date Description Comments Sex Unknown Smokeless Tobacco Never Used Smokeless Tobacco ETOH Use Denies alcohol use Tobacco Use Start: Unknown Smokes 1 Pack A Day Recreational Drug Use Denies Drug Use Allergies, Adverse Reactions, Alerts Description No Known Drug Allergies Medications Active Medications SIG Qnty Indications Ordering Provide r Date Chlorhexidine Gluconate 0.12% Solu tion 15 milliliters by mouth swish and spit three times a day 473ml C32.0 Angel Alonzo MD 07/24/2019 Pantoprazole Sodium 40mg Tablets D R 1 by mouth twice a day for GERD/Dysphagia 60tabs Nawaf snow MD 02/22/2019 Clenpiq 10-3.5-12mg-GM -GM/160ML S olution take as directed per doctor's bowel prep instructions. 320ml Z12.1 1 Nawaf Estrada MD 11/14/2018 Ranitidine HCL 150mg Tablets take one tablet by mouth once daily in the evening. 30tabs R10.13 Nawaf Estrada MD 11/14/2018 Lyrica 150mg Capsules 4caps p o qd Unknown Pravastatin Sodium 40mg Tablets 1tab po qd Unknown Celebrex 100mg Capsules 2caps po qd Unknown Aspir-[address] 1tab po qd Unknown Duloxetine HCL 20mg Caps DR Part 1cap po bid Unknown Immunizations Description No Information Available Vital Signs Date Vital Result Comment 09/08/2020 3:00pm Height 69 inches 5'9" Weight 121.00 lb BMI (Body Mass Index) 17.9 kg/m2 [place] Body Weight 160 lb Weight 54.886 kg BSA (Body Surface Area) 1.67 m2 03/30/2020 2:21pm Height 69 inches 5'9" Weight 121.00 lb BMI (Body Mass Index) 17.9 kg/m2 [place] Body Weight 160 lb Weight 54.886 kg BSA (Body Surface Area) 1.67 m2 Results Description No Information Available Procedures Date Code Description Status 03/30/2020 63399 Laryngoscopy Flexible Fiberoptic Diagnostic Completed Medical Devices Description No Information Available Encounters Description No Information Available Assessments Date Code Description Provider 09/08/2020 R49.0 Dysphonia Angel Alonzo MD 09/08/2020 J38.3 Other diseases of vocal cords To nba Alonzo MD 09/08/2020 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 Angel Alonzo MD 09/08/2020 R13.10 Dysphagia, unspecified Angel martell MD 03/30/2020 J38.3 Other diseases of vocal cords To nba Alonzo MD 03/30/2020 R49.0 Dysphonia Angel Alonzo MD 03/30/2020 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 Angel Alonzo MD 03/30/2020 F17.210 Nicotine dependence, cigarettes, uncomplicated Angel Alonzo MD Plan of Treatment 09/08/2020 - Angel Alonzo MD* R49.0 Dysphonia * J38.3 Other diseases of vocal cords * Z85.21 Personal history of malignant neoplasm of larynx * R13.10 Dysphagia, unspecified* New Labs:* BUN & Creatinine ([facility]), Ordered: 09/08/20 * New Xrays:* CT Neck With Contrast, Ordered: 09/08/20 * Barium Swallow, Esophogram, Ordered: 09/08/20 Functional Status Description No Information Available Mental Status Description No Information Available Referrals Description No Information Available
--- OUTSIDE RECORDS SUMMARY | 2020-11-05 10:45 | CCD | Continuity of Care Document ---
Author Author [facility] Organization Unknown Address [address] [place] [id number] Phone [phone] Care Team Providers Care Sas Developer Analyst Name Role Phone Robert Sanderson RPA AUTM [phone] Arcadio Matos M.D. AUTM [phone] Arcadio Matos M.D. PCP [phone] Social History Type Date Description Comments Sex Unknown Allergies, Adverse Reactions, Alerts Description No Known Drug Allergies Medications Active Medications SIG Qnty Indications Ordering Provide r Date Acetaminophen-Codeine #4 300-60mg Tablets Take 1 Tablet By Mouth Every 4 To 6 Hours as Needed For Pain. Maximum Daily Dose Is 6 Tablets Unknown Celecoxib 200mg Capsules Take 1 Capsule By Mouth Every Day With Food. May Increase To 2 Times A Day as Needed With Meals Unknown Pregabalin 150mg Capsules Take 1 Capsule By Mouth Four Times Daily. Maximum Daily Dose Is 4. Maximum Daily Dose Is 4 Unknown Omeprazole 40mg Capsules DR take one capsule by mouth every day take before a meal-patient needs appt 30caps [facility] Pravastatin Sodium 40mg Tablets take one tablet by mouth every day-patient needs appt 30tabs Gurpreet [facility] Duloxetine HCL 20mg Caps DR Part TK 2 CS PO D WC Unknown Medications Administered in Office Medication SIG Qnty Indications Ordering Provider Date Technetium TC 99M Sestamibi Injection [facility] 04/05/2017 Vital Signs Date Vital Result Comment 11/04/2020 2:17pm Height 70 inches 5'10" Weight 120.00 lb BMI (Body Mass Index) 17.2 kg/m2 Body Temperature 97.3 F BP Systolic 136 mmHg BP Diastolic 88 mmHg Heart Rate 75 /min O2 % BldC Oximetry 96 % Results Test Acquired Date Facility Test Result H/L Range Note Laboratory test finding 09/15/2020 [facility] [address] [place] [id number] [phone] BUN 8 mg/dL 7 - 21 Creatinine Serum 09/15/[address] [address] [phone] Creatinine 0.8 mg/dL 0.7 - 1.5 Age 65 yrs Non-Aa GFR >60 mL/min Afr Amer GFR >60 mL/min 1 1 Male GFR Interprentation 20-49 yrs >60 mL/min Normal 50-59 yrs >56 mL/min Normal 60-69 yrs >49 mL/min Normal 70-79yrs >42 mL/min Normal 80 and above >35 mL/min Normal Female GFR Interpretation 20-39 yrs >60 mL/min Normal 40-49 yrs >58 mL/min Normal 50-59 yrs >51 mL/min Normal 60-69 yrs >45 mL/min Normal 70-79 yrs >39 mL/min Normal 80 and above >32 mL/min Normal Plan of Treatment Future Appointment(s):* 12/02/2020 3:00 pm - [facility]
--- OUTSIDE RECORDS SUMMARY | 2020-11-05 10:46 | CCD ---
Author Author [facility] Organization [facility] Address Unknown Phone Unavailable Care Team Providers Care Nuclear Medical Technologist Name Role Phone Brooks ALONZO MD Unavailable Unavailable Brooks ALONZO MD Unavailable Unavailable Brooks ALONZO MD Unavailable Unavailable Brooks ALONZO MD Unavailable Unavailable Brooks ALONZO MD Unavailable Unavailable Brooks ALONZO MD Unavailable Unavailable Brooks ALONZO MD Unavailable Unavailable Brooks ALONZO MD Unavailable Unavailable Brooks ALONZO MD Unavailable Unavailable Brooks ALONZO MD Unavailable Unavailable Brooks ALONZO MD Unavailable Unavailable Brooks ALONZO MD Unavailable Unavailable Brooks ALONZO MD Unavailable Unavailable Brooks ALONZO MD Unavailable Unavailable Brooks ALONZO MD Unavailable Unavailable Brooks ALONZO MD Unavailable Unavailable Brooks ALONZO MD Unavailable Unavailable Brooks ALONZO MD Unavailable Unavailable Brooks ALONZO MD Unavailable Unavailable Brooks ALONZO MD Unavailable Unavailable Brooks ALONZO MD Unavailable Unavailable Brooks ALONZO MD Unavailable Unavailable Brooks ALONZO MD Unavailable Unavailable Brooks ALONZO MD Unavailable Unavailable Brooks ALONZO MD Unavailable Unavailable COLUMBA, Brooks ANTONIO MD Unavailable Unavailable COLUMBA, Brooks ANTONIO MD Unavailable Unavailable COLUMBA, Brooks ANTONIO MD Unavailable Unavailable COLUMBA, Brooks ANTONIO MD Unavailable Unavailable COLUMBA, Brooks ANTONIO MD Unavailable Unavailable COLUMBA, Brooks ANTONIO MD Unavailable Unavailable COLUMBA, Brooks ANTONIO MD Unavailable Unavailable COLUMBA, Brooks ANTONIO MD Unavailable Unavailable COLUMBA, Brooks ANTONIO MD Unavailable Unavailable COLUMBA, Brooks ANTONIO MD Unavailable Unavailable NIRMAL, MAQBOOL ZOYA MD Unavailable Unavailable NIRMAL, MAQBOOL ZOYA MD Unavailable Unavailable NIRMAL, MAQBOOL ZOYA MD Unavailable Unavailable NIRMAL, MAQBOOL ZOYA MD Unavailable Unavailable NIRMAL, MAQBOOL ZOYA MD Unavailable Unavailable NIRMAL, MAQBOOL ZOYA MD Unavailable Unavailable NIRMAL, MAQBOOL ZOYA MD Unavailable Unavailable NIRMAL, MAQBOOL ZOYA MD Unavailable Unavailable NIRMAL, MAQBOOL ZOYA MD Unavailable Unavailable NIRMAL, MAQBOOL ZOYA MD Unavailable Unavailable NIRMAL, MAQBOOL ZOYA MD Unavailable Unavailable NIRMAL, MAQBOOL ZOYA MD Unavailable Unavailable NIRMAL, MAQBOOL ZOYA MD Unavailable Unavailable NIRMAL, MAQBOOL ZOYA MD Unavailable Unavailable NIRMAL, MAQBOOL ZOYA MD Unavailable Unavailable NIRMAL, MAQBOOL ZOYA MD Unavailable Unavailable NIRMAL, MAQBOOL ZOYA MD Unavailable Unavailable NIRMAL, MAQBOOL ZOYA MD Unavailable Unavailable NIRMAL, MAQBOOL ZOYA MD Unavailable Unavailable NIRMAL, MAQBOOL ZOYA MD Unavailable Unavailable NIRMAL, MAQBOOL ZOYA MD Unavailable Unavailable NIRMAL, MAQBOOL ZOYA MD Unavailable Unavailable NIRMAL, MAQBOOL ZOYA MD Unavailable Unavailable NIRMAL, MAQBOOL ZOYA MD Unavailable Unavailable NIRMAL, MAQBOOL ZOYA MD Unavailable Unavailable NIRMAL, MAQBOOL ZOYA MD Unavailable Unavailable NIRMAL, MAQBOOL ZOYA MD Unavailable Unavailable NIRMAL, MAQBOOL ZOYA MD Unavailable Unavailable NIRMAL, MAQBOOL ZOYA MD Unavailable Unavailable NIRMAL, MAQBOOL ZOYA MD Unavailable Unavailable NIRMAL, MAQBOOL ZOYA MD Unavailable Unavailable NIRMAL, MAQBOOL ZOYA MD Unavailable Unavailable NIRMAL, MAQBOOL ZOYA MD Unavailable Unavailable NIRMAL, MAQBOOL ZOYA MD Unavailable Unavailable NIRMAL, MAQBOOL ZOYA MD Unavailable Unavailable NIRMAL, MAQBOOL ZOYA MD Unavailable Unavailable NIRMAL, MAQBOOL ZOYA MD Unavailable Unavailable NIRMAL, MAQBOOL ZOYA MD Unavailable Unavailable NIRMAL, MAQBOOL ZOYA MD Unavailable Unavailable NIRMAL, MAQBOOL ZOYA MD Unavailable Unavailable NIRMAL, MAQBOOL ZOYA MD Unavailable Unavailable NIRMAL, MAQBOOL ZOYA MD Unavailable Unavailable NIRMAL, MAQBOOL ZOYA MD Unavailable Unavailable NIRMAL, MAQBOOL ZOYA MD Unavailable Unavailable NIRMAL, MAQBOOL ZOYA MD Unavailable Unavailable NIRMAL, MAQBOOL ZOYA MD Unavailable Unavailable NIRMAL, MAQBOOL ZOYA MD Unavailable Unavailable NIRMAL, MAQBOOL ZOYA MD Unavailable Unavailable NIRMAL, MAQBOOL ZOYA MD Unavailable Unavailable NIRMAL, MAQBOOL ZOYA MD Unavailable Unavailable NIRMAL, MAQBOOL ZOYA MD Unavailable Unavailable NIRMAL, MAQBOOL ZOYA MD Unavailable Unavailable NIRMAL, MAQBOOL ZOYA MD Unavailable Unavailable NIRMAL, MAQBOOL ZOYA MD Unavailable Unavailable NIRMAL, MAQBOOL ZOYA MD Unavailable Unavailable NIRMAL, MAQBOOL ZOYA MD Unavailable Unavailable NIRMAL, MAQBOOL ZOYA MD Unavailable Unavailable NIRMAL, MAQBOOL ZOYA MD Unavailable Unavailable NIRMAL, MAQBOOL ZOYA MD Unavailable Unavailable NIRMAL, MAQBOOL ZOYA MD Unavailable Unavailable NIRMAL, MAQBOOL ZOYA MD Unavailable Unavailable NIRMAL, MAQBOOL ZOYA MD Unavailable Unavailable NIRMAL, MAQBOOL ZOYA MD Unavailable Unavailable NIRMAL, MAQBOOL ZOYA MD Unavailable Unavailable NIRMAL, MAQBOOL ZOYA MD Unavailable Unavailable NIRMAL, MAQBOOL ZOYA MD Unavailable Unavailable NIRMAL, MAQBOOL ZOYA MD Unavailable Unavailable NIRMAL, MAQBOOL ZOYA MD Unavailable Unavailable NIRMAL, MAQBOOL ZOYA MD Unavailable Unavailable NIRMAL, MAQBOOL ZOYA MD Unavailable Unavailable NIRMAL, JESSI KENNY MD Unavailable Unavailable NIRMAL, JESSI KENNY MD Unavailable Unavailable NIRMAL, JESSI KENNY MD Unavailable Unavailable NIRMAL, JESSI KENNY MD Unavailable Unavailable Parra, Nayana Whipple MD Unavailable Unavailable Parra, Nayana Whipple MD Unavailable Unavailable Parra, Nayana Whipple MD Unavailable Unavailable Parra, Nayana Whipple MD Unavailable Unavailable Parra, Nayana Whipple MD Unavailable Unavailable Parra, Nayana Whipple MD Unavailable Unavailable Parra, Nayana Whipple MD Unavailable Unavailable Parra, Nayana Whipple MD Unavailable Unavailable Parra, Nayana Whipple MD Unavailable Unavailable Parra, Nayana Whipple MD Unavailable Unavailable Parra, Nayana Whipple MD Unavailable Unavailable Parra, Nayana Whipple MD Unavailable Unavailable Parra, Nayana Whipple MD Unavailable Unavailable Parra, Nayana Whipple MD Unavailable Unavailable ALEX, M JAYCEE PA Unavailable Unavailable ALEX, M JAYCEE PA Unavailable Unavailable ALEX, M JAYCEE PA Unavailable Unavailable ALEX, M JAYCEE PA Unavailable Unavailable ALEX, M JAYCEE PA Unavailable Unavailable ALEX, M JAYCEE PA Unavailable Unavailable ALEX, M JAYCEE PA Unavailable Unavailable ALEX, M JAYCEE PA Unavailable Unavailable ALEX, M JAYCEE PA Unavailable Unavailable ALEX, M JAYCEE PA Unavailable Unavailable ALEX, M JAYCEE PA Unavailable Unavailable ALEX, M JAYCEE PA Unavailable Unavailable ALEX, M JAYCEE PA Unavailable Unavailable ALEX, M JAYCEE PA Unavailable Unavailable ALEX, M JAYCEE PA Unavailable Unavailable ALEX, M JAYCEE PA Unavailable Unavailable ALEX, M JAYCEE PA Unavailable Unavailable ALEX, M JAYCEE PA Unavailable Unavailable ALEX, M JAYCEE PA Unavailable Unavailable ALEX, M JAYCEE PA Unavailable Unavailable ALEX, M JAYCEE PA Unavailable Unavailable ALEX, M JAYCEE PA Unavailable Unavailable ALEX, M JAYCEE PA Unavailable Unavailable ALEX, M JAYCEE PA Unavailable Unavailable Re-disclosure Warning The records that you are about to access may contain information from federally-assisted alcohol or drug abuse programs. If such information is present, then the following federally mandated warning applies: This information has been disclosed to you from records protected by federal confidentiality rules (42 CFR part 2). The federal rules prohibit you from making any further disclosure of this information unless further disclosure is expressly permitted by the written consent of the person to whom it pertains or as otherwise permitted by 42 CFR part 2. A general authorization for the release of medical or other information is NOT sufficient for this purpose. The Federal rules restrict any use of the information to criminally investigate or prosecute any alcohol or drug abuse patient.The records that you are about to access may contain highly sensitive health information, the redisclosure of which is protected by Article 27-F of the [facility] Public Health law. If you continue you may have access to information: Regarding HIV / AIDS; Provided by facilities licensed or operated by the [facility] Office of Mental Health; or Provided by the [facility] Office for People With Developmental Disabilities. If such information is present, then the following [facility] mandated warning applies: This information has been disclosed to you from confidential records which are protected by state law. State law prohibits you from making any further disclosure of this information without the specific written consent of the person to whom it pertains, or as otherwise permitted by law. Any unauthorized further disclosure in violation of state law may result in a fine or nursing home sentence or both. A general authorization for the release of medical or other information is NOT sufficient authorization for further disc losure. Allergies and Adverse Reactions Type Description Substance Reaction Status Data Source(s ) No Known Allergies No Known Allergies [facility] Family History Family Member Name Family Member Gender Family Member Status Date o f Status Description Data Source(s) Unknown Unknown Problem [facility] ([facility]) Unknown Female Problem [facility] ([facility]) Unknown Female Problem [facility] ([facility]) Encounters Encounter Providers Location Date Indications Data Source(s ) Outpatient Attender: Sole Parra MDConsultant: ZOYA Cosme MD 09/15/2020 01:58:00 PM EST - 09/15/2020 02:58:00 PM [facility] Outpatient Attender: ZOYA MATOS MDConsultant: ZOYA Cosme MD 03/20/2020 10:34:00 AM EDT - 03/20/2020 11:34:00 AM EDT [facility] Outpatient Attender: JAYCEE JONES Physical Therapy 02/09 03:30:00 PM EDT [facility] ([facility]) [facility] [address] [place] [phone] 12/03/2019 12:00:00 AM EDT eCW1 ([facility]) [facility] Dermatology Center [address] [place] [phone] 12/02/2019 12:00:00 AM EDT eCW1 ([facility]) [facility] [address] [place] [phone] 12/02/2019 12:00:00 AM EDT [facility]CW1 ([facility]) [facility] [address] [place] [phone] 11/29/2019 12:00:00 AM EDT eCW1 ([facility]) Outpatient Attender: JAYCEE JONES Physical Therapy 11/09 03:30:00 PM EDT [facility] ([facility]) [facility] [address] [place] [phone] 11/28/2019 12:00:00 AM EDT eCW1 ([facility]) [facility] [address] [place] [phone] 11/27/2019 12:00:00 AM EDT eCW1 ([facility]) [facility] [address] [place] [phone] 11/26/2019 12:00:00 AM EDT eCW1 ([facility]) [facility] [address] [place] [phone] 11/25/2019 12:00:00 AM EDT eCW1 ([facility]) [facility] [address] [place] [phone] 11/25/2019 12:00:00 AM EDT eCW1 ([facility]) [facility] [address] [place] [phone] 11/22/2019 12:00:00 AM EDT eCW1 ([facility]) [facility] [address] [place] [phone] 11/21/2019 12:00:00 AM EDT eCW1 ([facility]) [facility] [address] [place] [phone] 11/20/2019 12:00:00 AM EDT eCW1 ([facility]) [facility] [address] [place] [phone] 11/20/2019 12:00:00 AM EDT eCW1 ([facility]) [facility] [address] [place] [phone] 11/19/2019 12:00:00 AM EDT eCW1 ([facility]) [facility] [address] [place] [phone] 11/18/2019 12:00:00 AM EDT eCW1 ([facility]) [facility] [address] [place] [phone] 11/15/2019 12:00:00 AM EST eCW1 ([facility]) [facility] [address] [place] [phone] 11/14/2019 12:00:00 AM EST eCW1 ([facility]) [facility] [address] [place] [phone] 11/13/2019 12:00:00 AM EST eCW1 ([facility]) [facility] [address] [place] [phone] 11/12/2019 12:00:00 AM EST eCW1 ([facility]) [facility] [address] [place] [phone] 11/11/2019 12:00:00 AM EST eCW1 ([facility]) [facility] [address] [place] [phone] 11/11/2019 12:00:00 AM EST eCW1 ([facility]) [facility] [address] [place] [phone] 11/08/2019 12:00:00 AM EST eCW1 ([facility]) [facility] [address] [place] [phone] 11/07/2019 12:00:00 AM EST eCW1 ([facility]) [facility] [address] [place] [phone] 11/07/2019 12:00:00 AM EST eCW1 ([facility]) [facility] [address] [place] [phone] 11/06/2019 12:00:00 AM EST eCW1 ([facility]) [facility] [address] [place] [phone] 11/05/2019 12:00:00 AM EST eCW1 ([facility]) [facility] [address] [place] [phone] 11/04/2019 12:00:00 AM EST eCW1 ([facility]) [facility] [address] [place] [phone] 10/31/2019 12:00:00 AM EST eCW1 ([facility]) [facility] [address] [place], [place] [phone] 10/30/2019 12:00:00 AM EST eCW1 ([facility]) [facility] [address] [place] [phone] 10/29/2019 12:00:00 AM EST eCW1 ([facility]) [facility] [address] [place] [phone] 10/28/2019 12:00:00 AM EST eCW1 ([facility]) [facility] [address] [place] [phone] 10/28/2019 12:00:00 AM EST eCW1 ([facility]) [facility] [address] [place] [phone] 10/28/2019 12:00:00 AM EST eCW1 ([facility]) [facility] [address] [place] [phone] 10/25/2019 12:00:00 AM EST eCW1 ([facility]) [facility] [address] [place] [phone] 10/24/2019 12:00:00 AM EST eCW1 ([facility]) [facility] [address] [place] [phone] 10/23/2019 12:00:00 AM EST eCW1 ([facility]) [facility] [address] [place] [phone] 10/22/2019 12:00:00 AM EST eCW1 ([facility]) [facility] [address] [place] [phone] 10/21/2019 12:00:00 AM EST eCW1 ([facility]) [facility] [address] [place] [phone] 10/18/2019 12:00:00 AM EST eCW1 ([facility]) [facility] [address] [place] [phone] 10/18/2019 12:00:00 AM EST eCW1 ([facility]) [facility] [address] [place] [phone] 10/17/2019 12:00:00 AM EST eCW1 ([facility]) [facility] [address] [place], [place] [phone] 10/16/2019 12:00:00 AM EST eCW1 ([facility]) [facility] [address] [place] [phone] 10/15/2019 12:00:00 AM EST eCW1 ([facility]) [facility] [address] [place] [phone] 10/14/2019 12:00:00 AM EST eCW1 ([facility]) [facility] [address] [place] [phone] 10/14/2019 12:00:00 AM EST eCW1 ([facility]) [facility] [address] [place] [phone] 10/11/2019 12:00:00 AM EST eCW1 ([facility]) [facility] [address] [place], [place] [id number] 10/10/2019 12:00:00 AM EST eCW1 ([facility]) [facility] [address] [place], [place] [id number] 10/09/2019 12:00:00 AM EST eCW1 ([facility]) [facility] [address] [place], [place] [id number] 10/08/2019 12:00:00 AM EST eCW1 ([facility]) [facility] [address] [place], [place] [id number] 10/07/2019 12:00:00 AM EST eCW1 ([facility]) [facility] [address] [place], [place] [id number] 10/03/2019 12:00:00 AM EST eCW1 ([facility]) [facility] [address] [place], [place] [id number] 10/02/2019 12:00:00 AM EST eCW1 ([facility]) [facility] [address] [place], [place] [id number] 10/01/2019 12:00:00 AM EST eCW1 ([facility]) [facility] [address] [place], [place] [id number] 09/30/2019 12:00:00 AM EST [facility] [address] [place], [place] [id number] 09/30/2019 12:00:00 AM EST eCW1 ([facility]) [facility] [address] [place], [place] [id number] 09/30/2019 12:00:00 AM EST eCW1 ([facility]) Outpatient Attender: MARISELA Alonzo/Richard/Shaka/Tegan snow 09/24/2019 08:30:00 AM EST [facility] ([facility]) [facility] [address] [place], [place] [phone] 09/20/2019 12:00:00 AM EST eCW1 ([facility]) [facility] [address] [place] [phone] 09/16/2019 12:00:00 AM EST eCW1 ([facility]) Immunizations Vaccine Date Status Description Data Source(s) COVID-19 VACCINE, MRNA-1273, LNP-S (MODERNA)/PF 10/23/2020 1 2:00:00 AM EST completed [facility] Medications Medication Brand Name Start Date Product Form Dose Route Admi nistrative Instructions Pharmacy Instructions Status Indications Reaction Description Data Source(s) 40 mg 10/21/2020 12:00:00 AM EST tablet 30 TAKE ONE TABLET BY MOUTH EVERY DAY TAKE ONE TABLET BY MOUTH EVERY DAY SOLD: 10/22/2020 [facility] 40 mg 10/20/2020 12:00:00 AM EST capsule,delayed release (DR/EC) 30 TAKE ONE CAPSULE BY MOUTH EVERY DAY, TAKE BEFORE A MEAL-PATIENT NEEDS APPOINTMENT TAKE ONE CAPSULE BY MOUTH EVERY DAY, TAKE BEFORE A MEAL-PATIENT NEEDS APPOINTMENT SOLD: 10/22/2020 [facility] 40 mg 04/16/2020 12:00:00 AM EDT tablet 90 TAKE ONE TABLET BY MOUTH EVERY DAY TAKE ONE TABLET BY MOUTH EVERY DAY SOLD: 04/18/2020 [facility] 40 mg 04/16/2020 12:00:00 AM EDT capsule,delayed release (DR/EC) 90 TAKE ONE CAPSULE BY MOUTH EVERY DAY - TAKE BEFORE A MEAL TAKE ONE CAPSULE BY MOUTH EVERY DAY - TAKE BEFORE A MEAL SOLD: 04/18/2020 [facility] 40 mg 04/16/2020 12:00:00 AM EDT capsule,delayed release (DR/EC) 90 TAKE ONE CAPSULE BY MOUTH EVERY DAY - TAKE BEFORE A MEAL TAKE ONE CAPSULE BY MOUTH EVERY DAY - TAKE BEFORE A MEAL SOLD: 07/19/2020 [facility] 40 mg 04/16/2020 12:00:00 AM EDT tablet 90 TAKE ONE TABLET BY MOUTH EVERY DAY TAKE ONE TABLET BY MOUTH EVERY DAY SOLD: 07/19/2020 [facility] 25 mg 03/20/2020 12:00:00 AM EDT tablet 30 TAKE ONE TABLET BY MOUTH EVERY DAY TAKE ONE TABLET BY MOUTH EVERY DAY SOLD: 03/23/2020 [facility] 40 mg 03/16/2020 12:00:00 AM EDT tablet 30 TAKE ONE TABLET BY MOUTH EVERY DAY TAKE ONE TABLET BY MOUTH EVERY DAY SOLD: 03/19/2020 [facility] 40 mg 03/16/2020 12:00:00 AM EDT capsule,delayed release (DR/EC) 30 TAKE ONE CAPSULE BY MOUTH EVERY DAY BEFORE A MEAL TAKE ONE CAPSULE BY MOUTH EVERY DAY BEFORE A MEAL SOLD: 03/19/2020 [facility] Acetaminophen 300 MG / Codeine Phosphate 60 MG Oral Ta blet Acetaminophen-Codeine #4 02/28/2020 12:00:00 AM EDT active [facility] ([facility]) duloxetine 20 MG Delayed Release Oral Capsule Duloxetine HCL 10/17/2019 12:00:00 AM EST ORAL active [facility] duloxetine 40 MG Delayed Release Oral Capsule Duloxetine HCL 06/14/2019 12:00:00 AM EDT ORAL completed [facility] ([facility]) Insurance Providers Payer name Policy type / Coverage type Policy ID Covered constitution party ID Covered constitution party's relationship to rae Policy Rae Plan Information MEDICARE [id number] SP [id number] MEDICARE [id number] SP [id number] U00 MEDICARE PART A-O/P [id number] 18 [id number] MEDICARE PART A-O/P [id number] 18 [id number] MEDICARE PART A [facility] [id number] 18 [id number] MEDICARE [id number] SP [id number] U00 [place] [employer] () Workers Compensation [id number] Self [id number] [place] [id number] Self [id number] [place] () Workers Compensation [id number] Self [id number] [place] Primary [id number] Self [id number] [place] Dow (WC) Workers Compensation [id number] Self [id number] [place] Med[place] B [id number] Self [id number] Warren Dow (WC) Workers Compensation [id number] Self [id number] [place] Med[place] B [id number] Self [id number] [place] Medicare Primary [id number] Self [id number] MEDICARE [id number] SP [id number] [place] Medicare Primary [id number] Self [id number] Warren Dow (WC) Workers Compensation [id number] Self [id number] [place] Med[place] [id number] Self [id number] Warren Dow (WC) Workers Compensation [id number] Self [id number] [place] Med[place] [id number] Self [id number] [place] Primary [id number] Self [id number] Warren Dow (WC) Workers Compensation [id number] Self [id number] [place] Med[place] Part B [id number] Self [id number] [place] Primary [id number] Self [id number] [place] Primary [id number] Self [id number] Warren Dow (WC) Workers Compensation [id number] Self [id number] [place] [id number] Self [id number] Warren Dow (WC) Workers Compensation [id number] Self [id number] [place] [id number] Self [id number] Warren Dow (WC) Workers Compensation [id number] Self [id number] [place] [id number] Self [id number] [place] Medicare Primary [id number] Self [id number] Warren Dow (WC) Workers Compensation [id number] Self [id number] [place] [id number] Self [id number] [employer]/[place] -O/P [id number] 18 [id number] [place] WORKERS COMP [id number] SP [id number] Warren Dow (WC) Workers Compensation [id number] Self [id number] [place] [id number] Self [id number] Warren Dow (WC) Workers Compensation [id number] Self [id number] [place] [id number] Self [id number] Warren Dow (WC) Workers Compensation [id number] Self [id number] [place] [id number] Self [id number] [place] Medicare Primary [id number] Self [id number] Warren Dow (WC) Workers Compensation [id number] Self [id number] Warren Dow (WC) Workers Compensation [id number] Self [id number] [place] [id number] Self [id number] [place] Medicare Primary [id number] Self [id number] [employer] (WC) Workers Compensation [id number] Self [id number] Warren [employer] (WC) Workers Compensation [id number] Self [id number] [place] [id number] Self [id number] Warren Dow (WC) Workers Compensation [id number] Self [id number] Warren [employer] (WC) Workers Compensation [id number] Self [id number] [place] [id number] Self [id number] Warren Dow (WC) Workers Compensation [id number] Self [id number] Warren Dow (WC) Workers Compensation [id number] Self [id number] [place] [id number] Self [id number] [employer] (WC) Workers Compensation [id number] Self [id number] Warren [employer] (WC) Workers Compensation [id number] Self [id number] [place] [id number] Self [id number] Warren Dow (WC) Workers Compensation [id number] Self [id number] Warren Dow (WC) Workers Compensation [id number] Self [id number] [place] [id number] Self [id number] Warren Dow (WC) Workers Compensation [id number] Self [id number] Warren Dow (WC) Workers Compensation [id number] Self [id number] [place] [id number] Self [id number] [place] (WC) Workers Compensation Self [employer] [id number] 18 [id number] [place] O [id number] S [id number] MEDICARE -O/P [id number] 18 [id number] WORKMEN'S COMP OTHER-O/P [id number] 18 [id number] [place] INS [id number] SP [id number] MEDICARE A [id number] Self [id number] A OTHER WORKERS COMPENSATION [id number] SP [id number] MEDICARE -RECURRING [id number] 18 [id number] MEDICARE [id number] SP [id number] A MEDICARE P [id number] S [id number] A MEDICARE OUTPATIENT M [id number] S [id number] [employer] O 0 S 0 MEDICARE INPATIENT M [id number] S [id number] Problems, Conditions, and Diagnoses Code Display Name Description Problem Type Effective Dates Data Source(s) L59.8 [id number] 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 Problem 11/05/2019 12:00:00 AM EST eCW1 ([facility]) R1310 Dysphagia, unspecified Dysphagia, unspecified Diagnosi s 09/15/2020 01:58:00 PM EST [facility] R351 Nocturia Nocturia Diagnosis 03/20/2020 10:34:00 AM ED T [facility] N390 Urinary tract infection, site not specif ied Urinary tract infection, site not specified Diagnosis 03/20/2020 10:34:00 AM EDT [facility] D649 Anemia, unspecified Anemia, unspecified Diagnosis 0 03/20/2020 10:34:00 AM EDT [facility] E119 Type 2 diabetes mellitus without complic ations Type 2 diabetes mellitus without complications Diagnosis 03/20/2020 10:34:00 AM EDT [facility] Surgeries/Procedures Procedure Description Date Indications Data Source(s) LARYNGOSCOPY FLEXIBLE FIBEROPTIC DIAGNOSTIC 03/30/2020 12:00:00 AM EDT [facility], ) LARYNGOSCOPY FLEXIBLE FIBEROPTIC DIAGNOSTIC 01/27/2020 12:00:00 AM EDT [facility] ([facility], ) Hyperbaric oxygen under pressure, full body chamber, per 30 minute interval 11/29/2019 12:00:00 AM EDT eCW1 ([facility]) HYPERBARIC OXYGEN THERAPY 11/29/2019 12:00:00 AM EDT eCW1 ([facility]) LARYNGOSCOPY FLEXIBLE FIBEROPTIC DIAGNOSTIC 11/27/2019 12:00:00 AM EDT [facility] ([facility], ) Office Visit, Est Pt., Level 2 FC 11/11/2019 12:00:00 AM EST eCW1 ([facility]) Office Visit, Est Pt., Level 2 PC 11/11/2019 12:00:00 AM EST eCW1 ([facility]) Office Visit, Est Pt., Level 3 PC 09/30/2019 12:00:00 AM EST eCW1 ([facility]) LARYNGOSCOPY FLEXIBLE FIBEROPTIC DIAGNOSTIC 09/24/2019 12:00:00 AM EST [facility] ([facility], ) NO CHARGE VISIT 09/20/2019 12:00:00 AM EST eCW1 ([facility]) Results ID Date Data Source [id number] 10/31/2020 10:00:00 AM EST [facility] Name Value Range Interpretation Code Description Data Melia rce(s) Supporting Document(s) SARS coronavirus 2 RNA Not Detected [facility] [place] This lab was ordered by [facility] and reported by [facility]. ID Date Data Source [id number] 10/24/2020 09:00:00 AM EST [facility] Name Value Range Interpretation Code Description Data Melia rce(s) Supporting Document(s) SARS coronavirus 2 RNA Not Detected [facility] [place] This lab was ordered by [facility] and reported by [facility]. ID Date Data Source [id number] 09/15/2020 02:03:00 PM EST [facility] (Zoya Matos MD) Name Value Range Interpretation Code Description Data Melia rce(s) Supporting Document(s) Laboratory test finding (navigational concept) 0.8 mg/dL 0.7-1.5 [facility] (Zoya Matos MD) Laboratory test finding (navigational concept) 65 yrs [facility] (Zoya Matos MD) Laboratory test finding (navigational concept) Laboratory test result [facility] (Zoya Matos MD) Laboratory test finding (navigational concept) Laboratory test result [facility] (Zoya Matos MD) Male GFR Interprentation 20-49 yrs >60 mL/min Normal 50-59 yrs >56 mL/min Normal 60-69 yrs >49 mL/min Normal 70-79yrs >42 mL/min Normal 80 and above >35 mL/min Normal Female GFR Interpretation 20-39 yrs >60 mL/min Normal 40-49 yrs >58 mL/min Normal 50-59 yrs >51 mL/min Normal 60-69 yrs >45 mL/min Normal 70-79 yrs >39 mL/min Normal 80 and above >32 mL/min Normal ID Date Data Source [id number] 09/15/2020 02:03:00 PM EST [facility] (Zoya Matos MD) Name Value Range Interpretation Code Description Data Melia rce(s) Supporting Document(s) Urea nitrogen [Mass/volume] in Serum or Plasma 8 mg/dL 7 [facility] (Zoya Matos [facility]) ID Date Data Source [id number] 09/15/2020 03:20:00 PM [facility] Name Value Range Interpretation Code Description Data Melia rce(s) Supporting Document(s) Creatinine [Mass/volume] in Serum or Plasma 0.8 MG/DL 0.7 - 1.5 [facility] AGE [address] [facility] NON-AA GFR >60 mL/min [facility] AFR AMER GFR >60 mL/min [facility] Male GFR Interprenta tion 20-49 yrs >60 mL/min Normal 50-59 yrs >56 mL/min Normal 60-69 yrs >49 mL/min Normal 70-79yrs >42 mL/min Normal 80 and above >35 mL/min Normal Female GFR Interpretation 20-39 yrs >60 mL/min Normal 40-49 yrs >58 mL/min Normal 50-59 yrs >51 mL/min Normal 60-69 yrs >45 mL/min Normal 70-79 yrs >39 mL/min Normal 80 and above >32 mL/min Normal ID Date Data Source [id number] 09/15/2020 03:20:00 PM [facility] Name Value Range Interpretation Code Description Data Melia rce(s) Supporting Document(s) BUN 8 MG/DL [facility] ID Date Data Source [id number] 03/23/2020 01:14:00 PM EDT [facility] Value Range Interpretation Code Description Data Melia rce(s) Supporting Document(s) CULTURE URINE [facility] _CULTURE URINE_$$[id number]$$[id number]$$[id number]$$[id number]$$364560$$500153$$566784$$044469$$482625$$ 049715$$349472$$536131$$129315$$903021$$604051$$074726$$340651$$464518$$861316$$ 770098$$127126$$872549$$543999$$896215$$556325$$741220$$[id number] -- Continued on next page --Patient: YARI Garcia Order: Page 2Culture: CULTURE URINE Status: Final ==== -- Continued on next page --Patient: YARI Garcia Order: Page 2Culture: CULTURE URINE Status: Prelim =====$$[id number]$$[id number] DATE/TIME: 03/23/2020 12:04Culture: CULTURE URINE Status: FinalUrine Culture,Comprehensive: P1No growth in 36 - 48 hours. Previous result entered on 03/22/2020 10:11 ET Specimen has been received and testing has been initiated.P1 Test performed by: [facility] TERRENCE #: [id number] [address] [place] [address] [id number] [facility] [id number] Director : Colby Bergeron MD NPI #:Maple [employer] Maker : 03/23/20.0626.XMT.SENT REF 03/23/20.1314.XMT.SENT REF 03/23/20.1314.CM .to NIRMAL YARON via modem ID Date Data Source [id number] 03/20/2020 11:40:00 AM EDT [facility] Name Value Range Interpretation Code Description Data Melia rce(s) Supporting Document(s) COMPREHENSIVE METABOLIC PANEL [facility] COMPREHENSIVE METABOLIC PANEL Sodium [Moles/volume] in Serum or Plasma 139 mEq/L 134 - 153 [facility] Potassium [Moles/volume] in Serum or Plasma 4.4 mEq/L 3.6 - 5.0 [facility] Chloride [Moles/volume] in Serum or Plasma 101 mEq/L 98 - 107 [facility] Carbon dioxide, total [Moles/volume] in Serum or Plasma 30 MEQ/L 22 - 30 [facility] Glucose [Mass/volume] in Serum or Plasma 82 MG/DL 65 - 110 [facility] BUN 9 MG/DL 7 - 21 [facility] al Creatinine [Mass/volume] in Serum or Plasma 0.8 MG/DL 0.7 - 1.5 [facility] BUN/CREAT 11 8 - 27 [facility] Protein [Mass/volume] in Serum or Plasma 6.7 G/DL 6.3 - 8.2 [facility] Albumin [Mass/volume] in Serum or Plasma 4.4 G/DL 3.9 - 5.0 [facility] Globulin [Mass/volume] in Serum by calculation 2.3 GM/DL 2.4 - 3.2 L [facility] A/G RATIO 1.9 0.8 - 2.0 [facility] Calcium [Mass/volume] in Serum or Plasma 9.5 MG/DL 8.4 - 10.2 [facility] Bilirubin.total [Mass/volume] in Serum or Plasma <0.7 MG/DL 0.2 - 1.3 [facility] Alkaline phosphatase [Enzymatic activity/volume] in Serum or Plasma 87 U/L 38 - 126 [facility] Aspartate aminotransferase [Enzymatic activity/volume] in Serum or Plasma 31 U/L 5 - 40 [facility] Alanine aminotransferase [Enzymatic activity/volume] in Seru m or Plasma 25 U/L 7 - 56 [facility] Anion gap 3 in Serum or Plasma 8.0 mmol/L 8.0 - 16.0 [facility] AGE [address] [facility] NON-AA GFR >60 mL/min [facility] AFR AMER GFR >60 mL/min [facility] Male GFR In terprentation 20-49 yrs >60 mL/min Normal 50-59 yrs >56 mL/min Normal 60-69 yrs >49 mL/min Normal 70-79yrs >42 mL/min Normal 80 and above >35 mL/min Normal Female GFR Interpretation 20-39 yrs >60 mL/min Normal 40-49 yrs >58 mL/min Normal 50-59 yrs >51 mL/min Normal 60-69 yrs >45 mL/min Normal 70-79 yrs >39 mL/min Normal 80 and above >32 mL/min Normal ID Date Data Source [id number] 03/20/2020 11:40:00 AM T [facility] Name Value Range Interpretation Code Description Data Melia rce(s) Supporting Document(s) Prostate specific Ag [Mass/volume] in Serum or Plasma 4.07 ng/mL 0.00 - 4.00 H [facility] \\BLDo\\PSA INTERPRETA TION\\BLDx\\ The PSA assay should not be used alone for a screening test or diagnosis for presence or absence of malignant disease. Predictions of disease recurrence should not be based solely on values obtained from serial patient serum values. The PSA result was determined by "[employer]", on the Son JAVY 6000. Values obtained with different assay methods or kits cannot be used interchangeably. ID Date Data Source [id number] 03/20/2020 11:06:00 AM T [facility] Name Value Range Interpretation Code Description Data Melia rce(s) Supporting Document(s) CBC W/AUTOMATED DIFF [facility] COMPLETE BLOOD COUNT Leukocytes [#/volume] in Blood by Automated count 6.8 10^3/uL 4.2 - 1 1.0 [facility] Erythrocytes [#/volume] in Blood by Automated count 4.48 10^6/uL 4. 50 - 6.30 L [facility] Hemoglobin [Mass/volume] in Blood 14.0 g/dL 14.0 - 16.0 [facility] Hematocrit [Volume Fraction] of Blood by Automated count 41.7 % 4 1.0 - 51.0 [facility] Erythrocyte mean corpuscular volume [Entitic volume] by Auto mated count 93.1 fL 80.0 - 94.0 [facility] Erythrocyte mean corpuscular hemoglobin [Entitic mass] by Automated count 31.3 pg 27.0 - 34.0 [facility] Erythrocyte mean corpuscular hemoglobin concentration [Mass/volume] by Automated count 33.6 g/dL 31.0 - 36.0 [facility] Erythrocyte distribution width [Ratio] by Automated count 14.9 % 11.5 - 14.8 H [facility] Platelets [#/volume] in Blood by Automated count 329 10^3/uL 150 - 45 0 [facility] Platelet mean volume [Entitic volume] in Blood by Automated count 9.9 fL 7.4 - 10.4 [facility] Neutrophils/100 leukocytes in Blood by Automated count 64.8 % 37. 0 - 80.0 [facility] Lymphocytes/100 leukocytes in Blood by Manual count 20.2 % 25.0 - 40.0 L [facility] Monocytes/100 leukocytes in Blood by Automated count 10.3 % 3.0 - 8.0 H [facility] Eosinophils/100 leukocytes in Blood by Automated count 3.1 % 0.0 - 7.0 [facility] Basophils/100 leukocytes in Blood by Automated count 1.3 % 0.0 - 2.0 [facility] %IG 0.3 % 0.0 - [facility] % 0.0 - 0.0 [facility] al Neutrophils [#/volume] in Blood by Automated count 4.39 10^3/uL 2.00 - 6.90 [facility] Lymphocytes [#/volume] in Blood by Automated count 1.37 10^3/uL 0.60 - 3.40 [facility] Monocytes [#/volume] in Blood by Automated count 0.70 10^3/uL 0.00 - 0.90 [facility] Eosinophils [#/volume] in Blood by Automated count 0.21 10^3/uL 0.00 - 0.70 [facility] Basophils [#/volume] in Blood by Automated count 0.09 10^3/uL 0.00 - 0.20 [facility] #IG 0.02 10^3/uL 0.00 - 0.10 [facility] #NRBC 0.00 10^3/uL 0.00 - 0.00 [facility] ospital MANUAL DIFF NOT INDICATED [facility] RBC MORPH NOT INDICATED [facility] ID Date Data Source [id number] 03/20/2020 11:05:00 AM EDT [facility] Name Value Range Interpretation Code Description Data Melia rce(s) Supporting Document(s) URINALYSIS [facility] URINALYSIS SOURCE R [facility] COLOR yellow NORMAL: Yellow [facility]spital CLARITY clear NORMAL: Clear [facility] Specific gravity of Urine by Test strip 1.010 1.001 - 1.030 [facility] pH 5 5 - 9 [facility] al Glucose [Mass/volume] in Urine by Test strip NORM NORMAL: Negat [facility] Bilirubin.total [Presence] in Urine by Test strip NEG NORMAL: Negative [facility] Ketones [Presence] in Urine by Test strip NEG NORMAL: Negative [facility] Protein [Mass/volume] in Urine by Test strip NEG NORMAL: Negat [facility] Nitrite [Presence] in Urine by Test strip NEG NORMAL: Negative [facility] BLOOD NEG NORMAL: Negative [facility] Leukocyte esterase [Presence] in Urine by Test strip NEG [place] L: Negative [facility] Urobilinogen [Mass/volume] in Urine by Test strip NOR less ion n 1.0 mg/dL [facility] MICROSCOPIC Not Indicate [facility] ospital ID Date Data Source [id number] 03/20/2020 11:05:00 AM EDT [facility] Name Value Range Interpretation Code Description Data Melia rce(s) Supporting Document(s) Hemoglobin A1c/Hemoglobin.total in Blood 6.1 % 4.4 - 6.1 [facility] {A1]{HB] Procedure Vital Signs ID Date Data Source [id number] Name Value Range Interpretation Code Description Data Source(s) Oxygen saturation in Arterial blood by Pulse oximetry 96 % 96 % [facility] (Zoya Matos MD) Heart rate 75 /min 75 /min [facility] (Zoya Matos MD) Diastolic blood pressure 88 mm[Hg] 88 mm[Hg] [facility] (Zoya Matos MD) Systolic blood pressure 136 mm[Hg] 136 mm[Hg] M [facility] (Zoya Matos MD) Body temperature 97.3 [degF] 97.3 [degF] [facility] (Zoya Matos MD) Body mass index (BMI) [Ratio] 17.2 kg/m2 17.2 k g/m2 [facility] (Zoya Matos MD) Body weight 120.00 [lb_av] 120.00 [lb_av] [facility] T (Zoya Matos MD) Body height 70 [in_i] 70 [in_i] [facility] (Zoya Matos MD) 5'10" Body surface area Derived from formula 1.67 m2 1.67 m2 [facility] ([facility]) Body weight 54.886 kg 54.886 kg [facility] ([facility]) [place] body weight 160 [lb_av] 160 [lb_av] [facility] T ([facility]) Body mass index (BMI) [Ratio] 17.9 kg/m2 17.9 k [facility] Body weight 121.00 [lb_av] 121.00 [lb_av] [facility] T ([facility]) Body height 69 [in_i] 69 [in_i] [facility] ([facility]) 5'9" Body surface area Derived from formula 1.67 m2 1.67 m2 [facility] Body weight 54.886 kg 54.886 kg [facility] ([facility]) [place] body weight 160 [lb_av] 160 [lb_av] [facility] T ([facility]) Body mass index (BMI) [Ratio] 17.9 kg/m2 17.9 k g/m2 [facility] ([facility]) Body weight 121.00 [lb_av] 121.00 [lb_av] [facility] T ([facility]) Body height 69 [in_i] 69 [in_i] [facility] ([facility]) 5'9" Body weight 55.[address] [facility] ([facility]) Body mass index (BMI) [Ratio] 18.2 kg/m2 18.2 k g/m2 [facility] ([facility]) Body weight 123.00 [lb_av] 123.00 [lb_av] [facility] T ([facility]) Body height 69 [in_i] 69 [in_i] [facility] ([facility]) 5'9" Diastolic blood pressure 81 mm[Hg] 81 mm[Hg] eCW1 ([facility]) Systolic blood pressure 146 mm[Hg] 146 mm[Hg] e CW1 ([facility]) Body temperature 96.7 [degF] 96.7 [degF] eCW1 ( [facility]) Respiratory rate 16 /min 16 /min eCW1 ([facility]) Heart rate 78 /min 78 /min eCW1 ([facility]) Body mass index (BMI) [Ratio] 17.22 kg/m2 17.22 kg/m2 W1 ([facility]) Body height 70 [in_us] 70 [in_us] eCW1 ([facility]) Body weight Measured [lb_av] eCW1 ([facility]) Diastolic blood pressure 66 mm[Hg] 66 mm[Hg] eCW1 ([facility]) Systolic blood pressure 132 mm[Hg] 132 mm[Hg] e CW1 ([facility]) Body temperature 96.6 [degF] 96.6 [degF] eCW1 ( [facility]) Respiratory rate 17 /min 17 /min eCW1 ([facility]) Heart rate 65 /min 65 /min eCW1 ([facility]) Body mass index (BMI) [Ratio] 17.22 kg/m2 17.22 kg/m2 W1 ([facility]) Body height 70 [in_us] 70 [in_us] eCW1 ([facility]) Body weight Measured [lb_av] eCW1 ([facility]) Diastolic blood pressure 83 mm[Hg] 83 mm[Hg] eCW1 ([facility]) Systolic blood pressure 138 mm[Hg] 138 mm[Hg] e CW1 ([facility]) Body temperature 96.7 [degF] 96.7 [degF] eCW1 ( [facility]) Respiratory rate 20 /min 20 /min eCW1 ([facility]) Heart rate 61 /min 61 /min eCW1 ([facility]) Body mass index (BMI) [Ratio] 17.22 kg/m2 17.22 kg/m2 eCW1 ([facility]) Body height 70 [in_us] 70 [in_us] eCW1 ([facility]) Body weight Measured 120 [lb_av] 120 [lb_av] eC W1 ([facility]) Diastolic blood pressure 88 mm[Hg] 88 mm[Hg] eCW1 ([facility]) Systolic blood pressure 141 mm[Hg] 141 mm[Hg] e CW1 ([facility]) Body temperature 97.1 [degF] 97.1 [degF] eCW1 ( [facility]) Respiratory rate 18 /min 18 /min eCW1 ([facility]) Heart rate 80 /min 80 /min eCW1 ([facility]) Body mass index (BMI) [Ratio] 17.22 kg/m2 17.22 kg/m2 eCW1 ([facility]) Body height 70 [in_us] 70 [in_us] eCW1 ([facility]) Body weight Measured [lb_av] eCW1 ([facility]) Diastolic blood pressure 79 mm[Hg] 79 mm[Hg] eCW1 ([facility]) Systolic blood pressure 120 mm[Hg] 120 mm[Hg] e CW1 ([facility]) Body temperature 96.7 [degF] 96.7 [degF] eCW1 ( [facility]) Respiratory rate 16 /min 16 /min eCW1 ([facility]) Heart rate 55 /min 55 /min eCW1 ([facility]) Body mass index (BMI) [Ratio] 17.22 kg/m2 17.22 kg/m2 eCW1 ([facility]) Body height 70 [in_us] 70 [in_us] eCW1 ([facility]) Body weight Measured [lb_av] eCW1 ([facility]) Diastolic blood pressure 83 mm[Hg] 83 mm[Hg] eCW1 ([facility]) Systolic blood pressure 129 mm[Hg] 129 mm[Hg] e CW1 ([facility]) Body temperature 96.6 [degF] 96.6 [degF] eCW1 ( [facility]) Respiratory rate 16 /min 16 /min eCW1 ([facility]) Heart rate 63 /min 63 /min eCW1 ([facility]) Body mass index (BMI) [Ratio] 17.22 kg/m2 17.22 kg/m2 eCW1 ([facility]) Body height 70 [in_us] 70 [in_us] eCW1 ([facility]) Body weight Measured [lb_av] eCW1 ([facility]) Diastolic blood pressure 81 mm[Hg] 81 mm[Hg] eCW1 ([facility]) Systolic blood pressure 132 mm[Hg] 132 mm[Hg] e CW1 ([facility]) Body temperature 96.9 [degF] 96.9 [degF] eCW1 ( [facility]) Respiratory rate 16 /min 16 /min eCW1 ([facility]) Heart rate 64 /min 64 /min eCW1 ([facility]) Body mass index (BMI) [Ratio] 17.22 kg/m2 17.22 kg/m2 W1 ([facility]) Body height 70 [in_us] 70 [in_us] eCW1 ([facility]) Body weight Measured [lb_av] eCW1 ([facility]) Diastolic blood pressure 72 mm[Hg] 72 mm[Hg] eCW1 ([facility]) Systolic blood pressure 126 mm[Hg] 126 mm[Hg] e CW1 ([facility]) Body temperature 97.0 [degF] 97.0 [degF] eCW1 ( [facility]) Respiratory rate 17 /min 17 /min eCW1 ([facility]) Heart rate 73 /min 73 /min eCW1 ([facility]) Body mass index (BMI) [Ratio] 17.22 kg/m2 17.22 kg/m2 eCW1 ([facility]) Body height 70 [in_us] 70 [in_us] eCW1 ([facility]) Body weight Measured [lb_av] eCW1 ([facility]) Diastolic blood pressure 83 mm[Hg] 83 mm[Hg] eCW1 ([facility]) Systolic blood pressure 143 mm[Hg] 143 mm[Hg] e CW1 ([facility]) Body temperature 96.6 [degF] 96.6 [degF] eCW1 ( [facility]) Respiratory rate 18 /min 18 /min eCW1 ([facility]) Heart rate 67 /min 67 /min eCW1 ([facility]) Body mass index (BMI) [Ratio] 17.22 kg/m2 17.22 kg/m2 eCW1 ([facility]) Body height 70 [in_us] 70 [in_us] eCW1 ([facility]) Body weight Measured [lb_av] eCW1 ([facility]) Diastolic blood pressure 84 mm[Hg] 84 mm[Hg] eCW1 ([facility]) Systolic blood pressure 148 mm[Hg] 148 mm[Hg] e CW1 ([facility]) Body temperature 96.6 [degF] 96.6 [degF] eCW1 ( [facility]) Respiratory rate 16 /min 16 /min eCW1 ([facility]) Heart rate 68 /min 68 /min eCW1 ([facility]) Body mass index (BMI) [Ratio] 17.22 kg/m2 17.22 kg/m2 eCW1 ([facility]) Body height 70 [in_us] 70 [in_us] eCW1 ([facility]) Body weight Measured [lb_av] eCW1 ([facility]) Diastolic blood pressure 80 mm[Hg] 80 mm[Hg] eCW1 ([facility]) Systolic blood pressure 155 mm[Hg] 155 mm[Hg] e CW1 ([facility]) Body temperature 97.3 [degF] 97.3 [degF] eCW1 ( [facility]) Respiratory rate 17 /min 17 /min eCW1 ([facility]) Heart rate 67 /min 67 /min eCW1 ([facility]) Body mass index (BMI) [Ratio] 17.22 kg/m2 17.22 kg/m2 eCW1 ([facility]) Body height 70 [in_us] 70 [in_us] eCW1 ([facility]) Body weight Measured [lb_av] eCW1 ([facility]) Diastolic blood pressure 81 mm[Hg] 81 mm[Hg] eCW1 ([facility]) Systolic blood pressure 135 mm[Hg] 135 mm[Hg] e CW1 ([facility]) Body temperature 96.7 [degF] 96.7 [degF] eCW1 ( [facility]) Respiratory rate 17 /min 17 /min eCW1 ([facility]) Heart rate 65 /min 65 /min eCW1 ([facility]) Body mass index (BMI) [Ratio] 17.22 kg/m2 17.22 kg/m2 eCW1 ([facility]) Body height 70 [in_us] 70 [in_us] eCW1 ([facility]) Body weight Measured [lb_av] eCW1 ([facility]) Diastolic blood pressure 75 mm[Hg] 75 mm[Hg] eCW1 ([facility]) Systolic blood pressure 128 mm[Hg] 128 mm[Hg] e CW1 ([facility]) Body temperature 98 [degF] 98 [degF] eCW1 ([facility]) Respiratory rate 16 /min 16 /min eCW1 ([facility]) Heart rate 67 /min 67 /min eCW1 ([facility]) Body mass index (BMI) [Ratio] 17.22 kg/m2 17.22 kg/m2 eCW1 ([facility]) Body height 70 [in_us] 70 [in_us] eCW1 ([facility]) Body weight Measured [lb_av] eCW1 ([facility]) Diastolic blood pressure 75 mm[Hg] 75 mm[Hg] eCW1 ([facility]) Systolic blood pressure 128 mm[Hg] 128 mm[Hg] e CW1 ([facility]) Body temperature 98 [degF] 98 [degF] eCW1 ([facility]) Respiratory rate 16 /min 16 /min eCW1 ([facility]) Heart rate 67 /min 67 /min eCW1 ([facility]) Body mass index (BMI) [Ratio] 17.22 kg/m2 17.22 kg/m2 eCW1 ([facility]) Body height 70 [in_us] 70 [in_us] eCW1 ([facility]) Body weight Measured [lb_av] eCW1 ([facility]) Diastolic blood pressure 79 mm[Hg] 79 mm[Hg] eCW1 ([facility]) Systolic blood pressure 150 mm[Hg] 150 mm[Hg] e CW1 ([facility]) Body temperature 97.5 [degF] 97.5 [degF] eCW1 ( [facility]) Respiratory rate 16 /min 16 /min eCW1 ([facility]) Heart rate 61 /min 61 /min eCW1 ([facility]) Body mass index (BMI) [Ratio] 17.22 kg/m2 17.22 kg/m2 eCW1 ([facility]) Body height 70 [in_us] 70 [in_us] eCW1 ([facility]) Body weight Measured [lb_av] eCW1 ([facility]) Diastolic blood pressure 80 mm[Hg] 80 mm[Hg] eCW1 ([facility]) Systolic blood pressure 130 mm[Hg] 130 mm[Hg] e CW1 ([facility]) Body temperature 97 [degF] 97 [degF] eCW1 ([facility]) Respiratory rate 16 /min 16 /min eCW1 ([facility]) Heart rate 60 /min 60 /min eCW1 ([facility]) Body mass index (BMI) [Ratio] 17.22 kg/m2 17.22 kg/m2 eCW1 ([facility]) Body height 70 [in_us] 70 [in_us] eCW1 ([facility]) Body weight Measured [lb_av] eCW1 ([facility]) Diastolic blood pressure 83 mm[Hg] 83 mm[Hg] eCW1 ([facility]) Systolic blood pressure 158 mm[Hg] 158 mm[Hg] e CW1 ([facility]) Body temperature 97.3 [degF] 97.3 [degF] eCW1 ( [facility]) Respiratory rate 18 /min 18 /min eCW1 ([facility]) Heart rate 67 /min 67 /min eCW1 ([facility]) Body mass index (BMI) [Ratio] 17.22 kg/m2 17.22 kg/m2 eCW1 ([facility]) Body height 70 [in_us] 70 [in_us] eCW1 ([facility]) Body weight Measured 120 [lb_av] 120 [lb_av] eC W1 ([facility]) Diastolic blood pressure 80 mm[Hg] 80 mm[Hg] eCW1 ([facility]) Systolic blood pressure 122 mm[Hg] 122 mm[Hg] e CW1 ([facility]) Body temperature 96.9 [degF] 96.9 [degF] eCW1 ( [facility]) Respiratory rate 17 /min 17 /min eCW1 ([facility]) Heart rate 64 /min 64 /min eCW1 ([facility]) Body mass index (BMI) [Ratio] 17.22 kg/m2 17.22 kg/m2 eCW1 ([facility]) Body height 70 [in_us] 70 [in_us] eCW1 ([facility]) Body weight Measured [lb_av] eCW1 ([facility]) Diastolic blood pressure 85 mm[Hg] 85 mm[Hg] eCW1 ([facility]) Systolic blood pressure 136 mm[Hg] 136 mm[Hg] e CW1 ([facility]) Body temperature 97.2 [degF] 97.2 [degF] eCW1 ( [facility]) Respiratory rate 17 /min 17 /min eCW1 ([facility]) Heart rate 67 /min 67 /min eCW1 ([facility]) Body mass index (BMI) [Ratio] 17.22 kg/m2 17.22 kg/m2 eCW1 ([facility]) Body height 70 [in_us] 70 [in_us] eCW1 ([facility]) Body weight Measured [lb_av] eCW1 ([facility]) Diastolic blood pressure 84 mm[Hg] 84 mm[Hg] eCW1 ([facility]) Systolic blood pressure 132 mm[Hg] 132 mm[Hg] e CW1 ([facility]) Body temperature 97.5 [degF] 97.5 [degF] eCW1 ( [facility]) Respiratory rate 16 /min 16 /min eCW1 ([facility]) Heart rate 71 /min 71 /min eCW1 ([facility]) Body mass index (BMI) [Ratio] 17.22 kg/m2 17.22 kg/m2 eCW1 ([facility]) Body height 70 [in_us] 70 [in_us] eCW1 ([facility]) Body weight Measured [lb_av] eCW1 ([facility]) Diastolic blood pressure 88 mm[Hg] 88 mm[Hg] eCW1 ([facility]) Systolic blood pressure 148 mm[Hg] 148 mm[Hg] e CW1 ([facility]) Body temperature 97.6 [degF] 97.6 [degF] eCW1 ( [facility]) Respiratory rate 17 /min 17 /min eCW1 ([facility]) Heart rate 68 /min 68 /min eCW1 ([facility]) Body mass index (BMI) [Ratio] 17.22 kg/m2 17.22 kg/m2 eCW1 ([facility]) Body height 70 [in_us] 70 [in_us] eCW1 ([facility]) Body weight Measured [lb_av] eCW1 ([facility]) Diastolic blood pressure 88 mm[Hg] 88 mm[Hg] eCW1 ([facility]) Systolic blood pressure 148 mm[Hg] 148 mm[Hg] e CW1 ([facility]) Body temperature 97.6 [degF] 97.6 [degF] eCW1 ( [facility]) Respiratory rate 17 /min 17 /min eCW1 ([facility]) Heart rate 68 /min 68 /min eCW1 ([facility]) Body mass index (BMI) [Ratio] 17.22 kg/m2 17.22 kg/m2 eCW1 ([facility]) Body height 70 [in_us] 70 [in_us] eCW1 ([facility]) Body weight Measured 120 [lb_av] 120 [lb_av] eC W1 ([facility]) Diastolic blood pressure 83 mm[Hg] 83 mm[Hg] eCW1 ([facility]) Systolic blood pressure 132 mm[Hg] 132 mm[Hg] e CW1 ([facility]) Body temperature 97.1 [degF] 97.1 [degF] eCW1 ( [facility]) Respiratory rate 17 /min 17 /min eCW1 ([facility]) Heart rate 62 /min 62 /min eCW1 ([facility]) Body mass index (BMI) [Ratio] 17.22 kg/m2 17.22 kg/m2 eCW1 ([facility]) Body height 70 [in_us] 70 [in_us] eCW1 ([facility]) Body weight Measured [lb_av] eCW1 ([facility]) Diastolic blood pressure 81 mm[Hg] 81 mm[Hg] eCW1 ([facility]) Systolic blood pressure 142 mm[Hg] 142 mm[Hg] e CW1 ([facility]) Body temperature 97.1 [degF] 97.1 [degF] eCW1 ( [facility]) Respiratory rate 18 /min 18 /min eCW1 ([facility]) Heart rate 64 /min 64 /min eCW1 ([facility]) Body mass index (BMI) [Ratio] 17.22 kg/m2 17.22 kg/m2 W1 ([facility]) Body height 70 [in_us] 70 [in_us] eCW1 ([facility]) Body weight Measured [lb_av] eCW1 ([facility]) Diastolic blood pressure 79 mm[Hg] 79 mm[Hg] eCW1 ([facility]) Systolic blood pressure 133 mm[Hg] 133 mm[Hg] e CW1 ([facility]) Body temperature 97 [degF] 97 [degF] eCW1 ([facility]) Respiratory rate 16 /min 16 /min eCW1 ([facility]) Heart rate 65 /min 65 /min eCW1 ([facility]) Body mass index (BMI) [Ratio] 17.22 kg/m2 17.22 kg/m2 eCW1 ([facility]) Body height 70 [in_us] 70 [in_us] eCW1 ([facility]) Body weight Measured [lb_av] eCW1 ([facility]) Diastolic blood pressure 87 mm[Hg] 87 mm[Hg] eCW1 ([facility]) Systolic blood pressure 133 mm[Hg] 133 mm[Hg] e CW1 ([facility]) Body temperature 97.5 [degF] 97.5 [degF] eCW1 ( [facility]) Respiratory rate 18 /min 18 /min eCW1 ([facility]) Heart rate 67 /min 67 /min eCW1 ([facility]) Body mass index (BMI) [Ratio] 17.22 kg/m2 17.22 kg/m2 W1 ([facility]) Body height 70 [in_us] 70 [in_us] eCW1 ([facility]) Body weight Measured [lb_av] eCW1 ([facility]) Diastolic blood pressure 73 mm[Hg] 73 mm[Hg] eCW1 ([facility]) Systolic blood pressure 128 mm[Hg] 128 mm[Hg] e CW1 ([facility]) Body temperature 97.4 [degF] 97.4 [degF] eCW1 ( [facility]) Respiratory rate 17 /min 17 /min eCW1 ([facility]) Heart rate 61 /min 61 /min eCW1 ([facility]) Body mass index (BMI) [Ratio] 17.22 kg/m2 17.22 kg/m2 eCW1 ([facility]) Body height 70 [in_us] 70 [in_us] eCW1 ([facility]) Body weight Measured [lb_av] eCW1 ([facility]) Diastolic blood pressure 72 mm[Hg] 72 mm[Hg] eCW1 ([facility]) Systolic blood pressure 146 mm[Hg] 146 mm[Hg] e CW1 ([facility]) Body temperature 96.7 [degF] 96.7 [degF] eCW1 ( [facility]) Respiratory rate 17 /min 17 /min eCW1 ([facility]) Heart rate 63 /min 63 /min eCW1 ([facility]) Body mass index (BMI) [Ratio] 17.22 kg/m2 17.22 kg/m2 W1 ([facility]) Body height 70 [in_us] 70 [in_us] eCW1 ([facility]) Body weight Measured [lb_av] eCW1 ([facility]) Diastolic blood pressure 83 mm[Hg] 83 mm[Hg] eCW1 ([facility]) Systolic blood pressure 129 mm[Hg] 129 mm[Hg] e CW1 ([facility]) Body temperature 97.2 [degF] 97.2 [degF] eCW1 ( [facility]) Respiratory rate 18 /min 18 /min eCW1 ([facility]) Heart rate 60 /min 60 /min eCW1 ([facility]) Body mass index (BMI) [Ratio] 17.22 kg/m2 17.22 kg/m2 eCW1 ([facility]) Body height 70 [in_us] 70 [in_us] eCW1 ([facility]) Body weight Measured [lb_av] eCW1 ([facility]) Diastolic blood pressure 92 mm[Hg] 92 mm[Hg] eCW1 ([facility]) Systolic blood pressure 161 mm[Hg] 161 mm[Hg] e CW1 ([facility]) Body temperature 96.9 [degF] 96.9 [degF] eCW1 ( [facility]) Respiratory rate 17 /min 17 /min eCW1 ([facility]) Heart rate 66 /min 66 /min eCW1 ([facility]) Body mass index (BMI) [Ratio] 17.22 kg/m2 17.22 kg/m2 eCW1 ([facility]) Body height 70 [in_us] 70 [in_us] eCW1 ([facility]) Body weight Measured [lb_av] eCW1 ([facility]) Diastolic blood pressure 85 mm[Hg] 85 mm[Hg] eCW1 ([facility]) Systolic blood pressure 129 mm[Hg] 129 mm[Hg] e CW1 ([facility]) Body temperature 97 [degF] 97 [degF] eCW1 ([facility]) Respiratory rate 17 /min 17 /min eCW1 ([facility]) Heart rate 62 /min 62 /min eCW1 ([facility]) Body mass index (BMI) [Ratio] 17.22 kg/m2 17.22 kg/m2 eCW1 ([facility]) Body height 70 [in_us] 70 [in_us] eCW1 ([facility]) Body weight Measured 120 [lb_av] 120 [lb_av] eC W1 ([facility]) Diastolic blood pressure 85 mm[Hg] 85 mm[Hg] eCW1 ([facility]) Systolic blood pressure 129 mm[Hg] 129 mm[Hg] e CW1 ([facility]) Body temperature 97.3 [degF] 97.3 [degF] eCW1 ( [facility]) Respiratory rate 17 /min 17 /min eCW1 ([facility]) Heart rate 62 /min 62 /min eCW1 ([facility]) Body mass index (BMI) [Ratio] 17.22 kg/m2 17.22 kg/m2 eCW1 ([facility]) Body height 70 [in_us] 70 [in_us] eCW1 ([facility]) Body weight Measured [lb_av] eCW1 ([facility]) Diastolic blood pressure 87 mm[Hg] 87 mm[Hg] eCW1 ([facility]) Systolic blood pressure 179 mm[Hg] 179 mm[Hg] e CW1 ([facility]) Body temperature 97.3 [degF] 97.3 [degF] eCW1 ( [facility]) Respiratory rate 17 /min 17 /min eCW1 ([facility]) Heart rate 66 /min 66 /min eCW1 ([facility]) Body mass index (BMI) [Ratio] 17.22 kg/m2 17.22 kg/m2 eCW1 ([facility]) Body height 70 [in_us] 70 [in_us] eCW1 ([facility]) Body weight Measured [lb_av] eCW1 ([facility]) Diastolic blood pressure 80 mm[Hg] 80 mm[Hg] eCW1 ([facility]) Systolic blood pressure 135 mm[Hg] 135 mm[Hg] e CW1 ([facility]) Body temperature 97.4 [degF] 97.4 [degF] eCW1 ( [facility]) Respiratory rate 16 /min 16 /min eCW1 ([facility]) Heart rate 60 /min 60 /min eCW1 ([facility]) Body mass index (BMI) [Ratio] 17.22 kg/m2 17.22 kg/m2 eCW1 ([facility]) Body height 70 [in_us] 70 [in_us] eCW1 ([facility]) Body weight Measured 120 [lb_av] 120 [lb_av] eC W1 ([facility]) Diastolic blood pressure 80 mm[Hg] 80 mm[Hg] eCW1 ([facility]) Systolic blood pressure 151 mm[Hg] 151 mm[Hg] e CW1 ([facility]) Body temperature 96.8 [degF] 96.8 [degF] eCW1 ( [facility]) Respiratory rate 16 /min 16 /min eCW1 ([facility]) Heart rate 75 /min 75 /min eCW1 ([facility]) Body mass index (BMI) [Ratio] 17.22 kg/m2 17.22 kg/m2 eCW1 ([facility]) Body height 70 [in_us] 70 [in_us] eCW1 ([facility]) Body weight Measured 120 [lb_av] 120 [lb_av] eC W1 ([facility]) Diastolic blood pressure 94 mm[Hg] 94 mm[Hg] eCW1 ([facility]) Systolic blood pressure 174 mm[Hg] 174 mm[Hg] e CW1 ([facility]) Body temperature 96.1 [degF] 96.1 [degF] eCW1 ( [facility]) Respiratory rate 18 /min 18 /min eCW1 ([facility]) Heart rate 62 /min 62 /min eCW1 ([facility]) Body mass index (BMI) [Ratio] 17.22 kg/m2 17.22 kg/m2 eCW1 ([facility]) Body height 70 [in_us] 70 [in_us] eCW1 ([facility]) Body weight Measured 120 [lb_av] 120 [lb_av] eC W1 ([facility]) Diastolic blood pressure 83 mm[Hg] 83 mm[Hg] eCW1 ([facility]) Systolic blood pressure 146 mm[Hg] 146 mm[Hg] e CW1 ([facility]) Body temperature 97.1 [degF] 97.1 [degF] eCW1 ( [facility]) Respiratory rate 17 /min 17 /min eCW1 ([facility]) Heart rate 61 /min 61 /min eCW1 ([facility]) Body mass index (BMI) [Ratio] 17.22 kg/m2 17.22 kg/m2 eCW1 ([facility]) Body height 70 [in_us] 70 [in_us] eCW1 ([facility]) Body weight Measured 120 [lb_av] 120 [lb_av] eC W1 ([facility]) Diastolic blood pressure 84 mm[Hg] 84 mm[Hg] eCW1 ([facility]) Systolic blood pressure 156 mm[Hg] 156 mm[Hg] e CW1 ([facility]) Body temperature 96.4 [degF] 96.4 [degF] eCW1 ( [facility]) Respiratory rate 16 /min 16 /min eCW1 ([facility]) Heart rate 58 /min 58 /min eCW1 ([facility]) Body mass index (BMI) [Ratio] 17.22 kg/m2 17.22 kg/m2 eCW1 ([facility]) Body height 70 [in_us] 70 [in_us] eCW1 ([facility]) Body weight Measured 120 [lb_av] 120 [lb_av] eC W1 ([facility]) Diastolic blood pressure 81 mm[Hg] 81 mm[Hg] eCW1 ([facility]) Systolic blood pressure 125 mm[Hg] 125 mm[Hg] e CW1 ([facility]) Body temperature 97.1 [degF] 97.1 [degF] eCW1 ( [facility]) Respiratory rate 17 /min 17 /min eCW1 ([facility]) Heart rate 65 /min 65 /min eCW1 ([facility]) Body mass index (BMI) [Ratio] 17.22 kg/m2 17.22 kg/m2 eCW1 ([facility]) Body height 70 [in_us] 70 [in_us] eCW1 ([facility]) Body weight Measured 120 [lb_av] 120 [lb_av] eC W1 ([facility]) Diastolic blood pressure 85 mm[Hg] 85 mm[Hg] eCW1 ([facility]) Systolic blood pressure 132 mm[Hg] 132 mm[Hg] e CW1 ([facility]) Body temperature 96.8 [degF] 96.8 [degF] eCW1 ( [facility]) Respiratory rate 16 /min 16 /min eCW1 ([facility]) Heart rate 61 /min 61 /min eCW1 ([facility]) Body mass index (BMI) [Ratio] 17.22 kg/m2 17.22 kg/m2 eCW1 ([facility]) Body height 70 [in_us] 70 [in_us] eCW1 ([facility]) Body weight Measured 120 [lb_av] 120 [lb_av] eC W1 ([facility]) Diastolic blood pressure 93 mm[Hg] 93 mm[Hg] eCW1 ([facility]) Systolic blood pressure 160 mm[Hg] 160 mm[Hg] e CW1 ([facility]) Body temperature 96.5 [degF] 96.5 [degF] eCW1 ( [facility]) Respiratory rate 18 /min 18 /min eCW1 ([facility]) Heart rate 63 /min 63 /min eCW1 ([facility]) Body mass index (BMI) [Ratio] 17.22 kg/m2 17.22 kg/m2 eCW1 ([facility]) Body height 70 [in_us] 70 [in_us] eCW1 ([facility]) Body weight Measured 120 [lb_av] 120 [lb_av] eC W1 ([facility]) Diastolic blood pressure 93 mm[Hg] 93 mm[Hg] eCW1 ([facility]) Systolic blood pressure 160 mm[Hg] 160 mm[Hg] e CW1 ([facility]) Body temperature 96.5 [degF] 96.5 [degF] eCW1 ( [facility]) Respiratory rate 17 /min 17 /min eCW1 ([facility]) Heart rate 63 /min 63 /min eCW1 ([facility]) Body mass index (BMI) [Ratio] 17.22 kg/m2 17.22 kg/m2 eCW1 ([facility]) Body height 70 [in_us] 70 [in_us] eCW1 ([facility]) Body weight Measured 120 [lb_av] 120 [lb_av] eC W1 ([facility]) Body weight 55.793 kg 55.793 kg CAMPOS ([facility], ) Body mass index (BMI) [Ratio] 18.2 kg/m2 18.2 k g/m2 CAMPOS ([facility], ) Body weight 123.00 [lb_av] 123.00 [lb_av] CHELI T ([facility], ) Body height 69 [in_i] 69 [in_i] CAMPOS ([facility], ) 5'9"
[2020-11-05] MEDS ORDERED: SUGAMMADEX SODIUM 500 MG/5 ML VIAL (BRIDION) As Ordered ONE (16:54)
[2020-11-05] MEDS ORDERED: ONDANSETRON 4MG/2ML VIAL As Ordered ONE (16:54)
[2020-11-05] MEDS ORDERED: dexameTHASONE 4 MG/ML 1ML VIAL (J1100 PER 1MG) As Ordered ONE (16:54)
[2020-11-05] MEDS ORDERED: propofoL 200 MG/20 ML VIAL As Ordered ONE (16:54)
[2020-11-05] MEDS ORDERED: ROCURONIUM BROMIDE 50 MG/5 ML VIAL As Ordered ONE (16:54)
[2020-11-05] MEDS ORDERED: LIDOCAINE 2% 100MG/5ML SDV (FOR ANES.) As Ordered ONE (16:54)
[2020-11-05] MEDS ORDERED: fentaNYL 100 MCG/2 ML INJECTION (J3010) As Ordered ONE (16:58)
[2020-11-05] MEDS ORDERED: MIDAZOLAM INJ 2MG/2ML VIAL (J2250 PER 1MG) As Ordered ONE (16:59)
[2020-11-05] MEDS ORDERED: METHYLENE BLUE 0.5% (5MG/ML) 10 ML AMP (PROVAYBLUE) As Ordered ONE (17:00)
[2020-11-05] MEDS ORDERED: OXYMETAZOLINE 0.05% NASAL SPRAY (AFRIN) As Ordered ONE (17:00)
[2020-11-05] MEDS ORDERED: LIDOCAINE W/EPINEPHRINE 1% 20ML VIAL As Ordered ONE (17:00)
[2020-11-05] MEDS ORDERED: CETACAINE SPRAY 5GM As Ordered ONE (17:25)
[2020-11-05] MEDS ORDERED: ePHEDrine SULFATE 25 MG/5 ML(5MG/ML) SYRINGE As Ordered ONE (17:45)
[2020-11-05] MEDS ORDERED: oxyCODONE 5MG TAB PO PRN (19:05)
[2020-11-05] MEDS ORDERED: ONDANSETRON 4MG/2ML VIAL IV PRN (19:05)
[2020-11-05] MEDS ORDERED: fentaNYL 100 MCG/2 ML INJECTION (J3010) IV PRN (19:05)
[2020-11-05] MEDS ORDERED: LR 1,000 ML IV SCH ×2 (19:05)
[2020-11-05 19:45] VITALS: BP 147/71
== END 2020-11-05 19:45 | disposition home or self-care (01) ==
LOC: M SDC 10:37
PROVIDERS: ATTEND Otolaryngology
DX: J38.7 Other diseases of larynx (principal); R49.0 Dysphonia; E78.5 Hyperlipidemia, unspecified; I73.9 Peripheral vascular disease, unspecified; K21.9 Gastro-esophageal reflux disease without esophagitis; F17.218 Nicotine dependence, cigarettes, with other nicotine-induced disorders; F41.9 Anxiety disorder, unspecified; F32.9 Major depressive disorder, single episode, unspecified; Z85.818 Personal history of malignant neoplasm of other sites of lip, oral cavity, and pharynx; Z92.3 Personal history of irradiation
CPT/HCPCS: 31536; 88305; J1100; J2250; J2405; J3010; Q9968

== ENCOUNTER → 2020-11-20 | Outpatient (CLI) | payer OTHER, MEDICARE ==
[~2020-11-20] MED LIST changes: -LIDOCAINE 1% MDV 20ML VIAL SQ PRN; -LR 1,000 ML IV ONE; -dexameTHASONE 4 MG/ML 1ML VIAL (J1100 PER 1MG) IV ONE
[2020-11-20 16:12] LABS: BLOOD UREA NITROGEN 6 MG/DL (7-18); CREATININE FOR GFR 0.87 MG/DL (0.70-1.30); GLOMERULAR FILTRATION RATE > 60.0 (>49)
== END ==
LOC: M PLALAB 14:33
PROVIDERS: ATTEND Physician Assistant
DX: M48.07 Spinal stenosis, lumbosacral region (principal)

== ENCOUNTER → 2020-11-23 | Outpatient (CLI) | payer MEDICARE ==
--- NOTE | 2020-11-23 15:21 | REP ---
INDICATION: DYSPHAGIA. COMPARISON: None. TECHNIQUE: The procedure was performed under the direct supervision of Dr. Torres. The procedure was performed with Clau Dos Santos from speech pathology present. 5 cc aliquots of nectar, pudding, thin, mixed fruit, soft, honey and pure a consistency barium was administered. 3.1 minutes of fluoroscopy time was utilized for this procedure. FINDINGS: With nectar, mixed fruit and honey consistency barium there is laryngeal penetration. With thin consistency barium there is aspiration. A detailed report of this examination will be provided by speech pathology. IMPRESSION: With nectar, mixed fruit and honey consistency barium there is laryngeal penetration. With thin consistency barium there is aspiration. A detailed report of this examination will be provided by speech pathology. <Electronically signed by José Miguel Valladares > 11/23/20 1516 <Electronically signed by Robert Torres > 11/23/20 151
== END ==
LOC: M ST 13:37
PROVIDERS: ATTEND Otolaryngology
DX: R30.0 Dysuria (principal)

== ENCOUNTER → 2021-03-03 | Outpatient (CLI) | payer MEDICARE ==
[~2021-03-03] MED LIST changes: +OMEP40CA4 PO; -OMEP40CA97 PO
== END ==
LOC: M LABSMTC 11:38
PROVIDERS: ATTEND Anesthesiology
DX: Z20.828 Contact with and (suspected) exposure to other viral communicable diseases (principal); Z11.59 Encounter for screening for other viral diseases

== ENCOUNTER 2021-03-08 12:51 | Day surgery (SDC) | payer MEDICARE ==
[~2021-03-08] VITALS: Ht 175.3 cm; Wt 50.3 kg
[~2021-03-08 12:51] MED LIST changes: +NS 1,000 ML IV ONE
[2021-03-08] MEDS ORDERED: propofoL 200 MG/20 ML VIAL As Ordered ONE (13:24)
[2021-03-08] MEDS ORDERED: fentaNYL 100 MCG/2 ML INJECTION (J3010) As Ordered ONE (13:24)
[2021-03-08] MEDS ORDERED: LIDOCAINE 2% 100MG/5ML SDV (FOR ANES.) As Ordered ONE (13:24)
--- NOTE | 2021-03-08 13:39 | ROOR ---
Patient Name: Nawaf Dsouza Procedure Date: 03/08/2021 1:19 PM Date of : 1955 Age: 65 Room: [facility] Gender: Male Note Status: Finalized Procedure: Upper GI endoscopy Indications: Oral phase dysphagia, Oropharyngeal phase dysphagia, Neurogenic dysphagia, Dysphagia Providers: Nawaf Estrada MD Referring MD: Arcadio Matos MD Requesting Provider: Medicines: Monitored Anesthesia Care Complications: No immediate complications. Procedure: Pre-Anesthesia Assessment: - The heart rate, respiratory rate, oxygen saturations, blood pressure, adequacy of pulmonary ventilation, and response to care were monitored throughout the procedure. The Endoscope was introduced through the mouth, and advanced to the second part of duodenum. The upper GI endoscopy was accomplished without difficulty. The patient tolerated the procedure well. Findings: Mild proximal esophageal deformity, slight cicarization with a possible slight web was found at the cricopharyngeus. The scope was withdrawn. Dilation was performed with a Sanchez dilator with mild resistance at 50 Fr. The dilation site was examined following endoscope reinsertion and showed complete resolution of luminal narrowing. The exam of the esophagus was otherwise normal. The entire examined stomach was normal. The examined duodenum was normal. 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 Dilated. - Normal stomach. - Normal examined duodenum. - No specimens collected. Recommendation: - Observe patient's clinical course. - I anticipate no further need for intervention. - Use a proton pump inhibitor PO daily. Procedure Code(s): --- Professional --- 57685, Esophagogastroduodenoscopy, flexible, transoral; diagnostic, including collection of specimen(s) by brushing or washing, when performed (separate procedure) 38533, Dilation of esophagus, by unguided sound or bougie, single or multiple passes Diagnosis Code(s): --- Professional --- R13.19, Other dysphagia R13.12, Dysphagia, oropharyngeal phase R13.11, Dysphagia, oral phase Q39.4, Esophageal web CPT copyright 2019 [employer]. All rights reserved. The codes documented in this report are preliminary and upon corporate controller review may be revised to meet current compliance requirements. Nawaf Estrada MD Nawaf Estrada MD 03/08/2021 1:39:22 PM Electronically signed by Nawaf Estrada MD Number of Addenda: 0 Note Initiated On: 03/08/2021 1:19 PM Estimated Blood Loss: Estimated blood loss: none.
[2021-03-08 14:02] VITALS: BP 117/74
== END 2021-03-08 14:04 | disposition home or self-care (01) ==
LOC: M OPP 12:51
PROVIDERS: ATTEND Internal Medicine Gastroenterology
DX: Q39.4 Esophageal web (principal); R13.19 Other dysphagia; R13.12 Dysphagia, oropharyngeal phase; R13.11 Dysphagia, oral phase; I73.9 Peripheral vascular disease, unspecified; Z79.82 Long term (current) use of aspirin; Z79.899 Other long term (current) drug therapy; F17.210 Nicotine dependence, cigarettes, uncomplicated; Z85.21 Personal history of malignant neoplasm of larynx; Z92.3 Personal history of irradiation; Z86.718 Personal history of other venous thrombosis and embolism
CPT/HCPCS: 43235; 43450; J3010

== ENCOUNTER → 2021-05-06 | Outpatient (CLI) | payer MEDICARE ==
[~2021-05-06] MED LIST changes: -NS 1,000 ML IV ONE
== END ==
LOC: M LABSMTC 10:41
PROVIDERS: ATTEND Internal Medicine Gastroenterology
DX: Z01.818 Encounter for other preprocedural examination (principal); Z11.52 Encounter for screening for COVID-19

== ENCOUNTER 2021-05-11 10:44 | Inpatient (IN) | payer MEDICARE ==
[~2021-05-11] VITALS: Ht 175.3 cm; Wt 41.1 kg
[~2021-05-11 10:44] MED LIST changes: +NS 1,000 ML IV ONE
[2021-05-11] MEDS ORDERED: GLUCAGON INJ 1MG VIAL SC PRN (15:55)
[2021-05-11] MEDS ORDERED: GLUCOSE 4GM CHEW TABLET PO PRN (15:55)
[2021-05-11] MEDS ORDERED: DEXTROSE 50% 50 ML SYRINGE IV PRN (15:55)
[2021-05-11] MEDS ORDERED: LIDOCAINE 2% 100MG/5ML SDV (FOR ANES.) As Ordered ONE (16:30)
[2021-05-11] MEDS ORDERED: propofoL 200 MG/20 ML VIAL As Ordered ONE ×2 (16:30→16:54)
[2021-05-11] MEDS ORDERED: fentaNYL 100 MCG/2 ML INJECTION (J3010) As Ordered ONE (16:30)
[2021-05-11] MEDS ORDERED: ePHEDrine SULFATE 25 MG/5 ML(5MG/ML) SYRINGE As Ordered ONE (16:40)
--- NOTE | 2021-05-11 17:11 | ROOR ---
Patient Name: Nawaf Dsouza Procedure Date: 05/11/2021 4:16 PM Date of : 1955 Age: 66 Room: [facility] Gender: Male Note Status: Finalized Procedure: Upper GI endoscopy Indications: Oropharyngeal phase dysphagia, Neurogenic dysphagia, Dysphagia Providers: Nawaf Estrada MD Referring MD: Arcadio Matos MD Requesting Provider: Medicines: Monitored Anesthesia Care Complications: No immediate complications. Procedure: Pre-Anesthesia Assessment: - The heart rate, respiratory rate, oxygen saturations, blood pressure, adequacy of pulmonary ventilation, and response to care were monitored throughout the procedure. The Endoscope was introduced through the mouth, and advanced to the second part of duodenum. The upper GI endoscopy was accomplished without difficulty. The patient tolerated the procedure well. Findings: Diffuse, white plaques were found in the entire esophagus. The exam of the esophagus was otherwise normal. The entire examined stomach was normal. The examined duodenum was normal. Impression: - Esophageal plaques were found, consistent with candidiasis. - Normal stomach. - Normal examined duodenum. - No specimens collected. Recommendation: - Pt with progressive severe dysphagia/aspiration. Unable to clear saliva at times, aspirating. Yeast esophagitis is seen today, but there is no restriction or obstruction in the esophagus. - Diflucan (fluconazole) 100 mg PO daily for 5 days. - Observe patient's clinical course. - ADD: See Colonoscopy report: shows a very large ischemic or viral appearing segmental ulceration from descending colon to sigmoid (20-25 cm ulcerated segment). In view of this intraabdominal/colonic process, would like to avoid placing PEG tube right now until diagnosis elaborated. Procedure Code(s): --- Professional --- 95827, Esophagogastroduodenoscopy, flexible, transoral; diagnostic, including collection of specimen(s) by brushing or washing, when performed (separate procedure) Diagnosis Code(s): --- Professional --- R13.12, Dysphagia, oropharyngeal phase K22.9, Disease of esophagus, unspecified R13.19, Other dysphagia CPT copyright 2019 [employer]. All rights reserved. The codes documented in this report are preliminary and upon data coder operator review may be revised to meet current compliance requirements. Nawaf Estrada MD Nawaf Estrada MD 05/11/2021 5:11:00 PM Electronically signed by Nawaf Estrada MD Number of Addenda: 0 Note Initiated On: 05/11/2021 4:16 PM Estimated Blood Loss: Estimated blood loss: none.
--- NOTE | 2021-05-11 17:26 | ROOR ---
Patient Name: Nawaf Dsouza Procedure Date: 05/11/2021 11:44 AM Date of : 1955 Age: 66 Room: [facility] Gender: Male Note Status: Finalized Procedure: Colonoscopy Indications: Generalized abdominal pain, Abnormal CT of the GI tract, Weight loss Providers: Nawaf Estrada MD Referring MD: Arcadio Matos MD Requesting Provider: Medicines: Monitored Anesthesia Care Complications: No immediate complications. Procedure: Pre-Anesthesia Assessment: - The heart rate, respiratory rate, oxygen saturations, blood pressure, adequacy of pulmonary ventilation, and response to care were monitored throughout the procedure. The Colonoscope was introduced through the anus and advanced to 10 cm into the ileum. The colonoscopy was somewhat difficult due to unsatisfactory bowel prep. The patient tolerated the procedure well. The quality of the bowel preparation was unsatisfactory. Findings: The perianal and digital rectal examinations were normal. Segmental 20-30 cm mucosal ulceration found from sigmoid to descending colon and from 40 to 70 cm proximal to the anus. Biopsies were taken with a cold forceps for histology. Four semi-sessile polyps were found in the sigmoid colon, ascending colon and cecum. The polyps were 10 to 15 mm in size. These polyps were removed with a piecemeal technique using a cold snare. Resection and retrieval were complete. The terminal ileum appeared normal. Impression: - Preparation of the colon was unsatisfactory. - Essentially continuous very large shallow and deep ulceration from proximal sigmoid to distal descending colon (from 40 to 70 cm proximal to the anus). Biopsied--r/o ischemia, r/o viral, r/o IBD, r/o other. - Four 10 to 15 mm polyps in the sigmoid colon, in the ascending colon and in the cecum, removed piecemeal using a cold snare. Resected and retrieved. - The colon is otherwise generally normal--suoptimal prep limits good exam, and small lesions may have been missed. - The examined portion of the ileum was normal. Recommendation: - Repeat colonoscopy in 6 months because the bowel preparation was poor. - PLAN: Pt was tentatively scheduled for PEG tube tomorrow for dysphagia/malnutrition, however in light of colon findigs, will try to delay PEG due to intra abdominal process. PEG will be cancelled for now. Will try him on Diflucan to address his yeast esophagitis, and hopefully improve swallowing by treating the yeast. In meantime await path, Will check CT A/P. Procedure Code(s): --- Professional --- 12138, Colonoscopy, flexible; with removal of tumor(s), polyp(s), or other lesion(s) by snare technique 45170, 59, Colonoscopy, flexible; with biopsy, single or multiple Diagnosis Code(s): --- Professional --- R93.3, Abnormal findings on diagnostic imaging of other parts of digestive tract R63.4, Abnormal weight loss R10.84, Generalized abdominal pain K63.5, Polyp of colon K63.3, Ulcer of intestine CPT copyright 2019 [employer]. All rights reserved. The codes documented in this report are preliminary and upon customer relations assistant review may be revised to meet current compliance requirements. Nawaf Estrada MD Nawaf Estrada MD 05/11/2021 5:25:53 PM Electronically signed by Nawaf Estrada MD Number of Addenda: 0 Note Initiated On: 05/11/2021 11:44 AM Estimated Blood Loss: Estimated blood loss: none.
[2021-05-11 18:00] VITALS: BP 130/76
[2021-05-11] MEDS ORDERED: FLUCONAZOLE 100 MG TAB PO ONE (18:00)
[2021-05-11 18:30] VITALS: BP 136/76
[2021-05-11 18:48] VITALS: BP 135/77
[2021-05-11] MEDS: D5W/0.45% SODIUM CHLORIDE 1,000 ML IV SCH (18:53)
[2021-05-11 20:00] VITALS: BP 140/75
[2021-05-11] MEDS ORDERED: NICOTINE 14 MG/24 HR TRANSDERMAL TD PRN (20:00)
[2021-05-11] MEDS ORDERED: FLUCONAZOLE 400 MG in IV 1 EA IV SCH (20:00)
[2021-05-11] MEDS ORDERED: ACETAMINOPHEN 325 MG/10.15 ML UDC PO PRN (20:05)
[2021-05-11] MEDS: RAMELTEON 8 MG TAB (ROZEREM) PO PRN (21:33)
[2021-05-11 22:00] VITALS: BP 135/76
[2021-05-12] MEDS: D5W/0.45% SODIUM CHLORIDE 1,000 ML IV SCH ×3 (01:55→16:27)
[2021-05-12 06:00] VITALS: BP 131/71
[2021-05-12 06:36] LABS: BASO # 0.1 10^3/uL (0.0-0.2); BASO % 0.4 % (0.0-1.0); EOS % 0.1 % (0.0-3.0); HEMATOCRIT 32.6 % (42.0-52.0); HEMOGLOBIN 11.3 g/dl (13.5-17.5); LYMPH # 1.5 10^3/uL (1.5-5.0); LYMPH % 9.5 % (24.0-44.0); MEAN CORPUSCULAR HEMOGLOBIN 30.1 pg (27.0-33.0); MEAN CORPUSCULAR HGB CONC 34.7 g/dl (32.0-36.5); MEAN CORPUSCULAR VOLUME 86.9 fl (80.0-96.0); MONO % 6.4 % (2.0-8.0); NEUTROPHILS # 13.5 10^3/uL (1.5-8.5); PLATELET COUNT, AUTOMATED 420 10^3/uL (150-450); RED BLOOD COUNT 3.75 10^6/uL (4.30-6.10); WHITE BLOOD COUNT 16.3 10^3/uL (4.0-10.0)
[2021-05-12 06:46] LABS: INR 1.19; PROTHROMBIN TIME 15.5 SECONDS (12.7-14.5)
[2021-05-12 07:02] LABS: ALBUMIN 2.2 GM/DL (3.2-5.2); ALT/SGPT 13 U/L (12-78); BILIRUBIN,TOTAL 0.5 MG/DL (0.2-1.0); BLOOD UREA NITROGEN 8 MG/DL (7-18); CALCIUM LEVEL 8.3 MG/DL (8.8-10.2); CARBON DIOXIDE LEVEL 29 MEQ/L (21-32); CHLORIDE LEVEL 102 MEQ/L (98-107); CREATININE FOR GFR 0.41 MG/DL (0.70-1.30); GLOMERULAR FILTRATION RATE > 60.0 (>49); GLUCOSE, FASTING 116 MG/DL (70-100); MAGNESIUM LEVEL 1.8 MG/DL (1.8-2.4); POTASSIUM SERUM 2.5 MEQ/L (3.5-5.1); PREALBUMIN 10.5 MG/DL (20.0-40.0); SODIUM LEVEL 136 MEQ/L (136-145); TOTAL PROTEIN 5.5 GM/DL (6.4-8.2)
[2021-05-12] MEDS ORDERED: MORPHINE 2 MG/ML 1ML VIAL (J2270) IV ONE (08:00)
[2021-05-12] MEDS ORDERED: POTASSIUM CHLORIDE 10 MEQ SR TABLET PO SCH (08:00)
[2021-05-12] MEDS: NYSTATIN 500,000 U/5 ML SUSP UDC SS SCH ×4 (08:19→20:37)
[2021-05-12] MEDS ORDERED: FLUCONAZOLE 100 MG TAB PO SCH (09:00)
--- NOTE | 2021-05-12 09:39 | HPE ---
HISTORY AND PHYSICAL DATE OF ADMISSION: 05/11/2021 CHIEF COMPLAINT: Dysphagia, odynophagia, 20-pound weight loss. 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 EGD showed significant esophageal candidiasis and colon polyps on colonoscopy with deep ulcers. Patient's feeding tube placement has been postponed until patient's esophagitis and deep ulcer have improved. Patient otherwise complained of 7/10 pain, bilateral lower quadrants, without radiation. Denies any dysuria, urgency, frequency, fever, chills, or flank pain. He has had a 20-point weight loss due to decreased appetite due to severe pain and dysphagia and odynophagia. Patient has had no nausea or vomiting. He denies any shortness of breath, chest pain, pressure, or tightness, lightheadedness, or dizziness. He denies any paresthesia, bilateral upper or lower extremities, but complains of generalized weakness and some difficulty ambulating due to severe weight loss. Dr. Estrada performed EGD/ colonoscopy and initially recommended feeding tube placement, but after the EGD showing significant esophageal candidiasis, he recommended treating this for 2 days and then repeating the CT abdomen and pelvis and potentially reconsidering feeding tube placement as an inpatient versus outpatient. Patient will be admitted as an inpatient for two midnights for treatment of his esophageal candidiasis with recent ulcer noted on his colonoscopy. MEDICAL HISTORY: Pharyngeal cancer, status post chemotherapy, radiation with secondary radionecrosis, requiring wound care by the wound care center. ALLERGIES: No known drug allergies. SURGICAL HISTORY: 1. Right leg angioplasty. 2. chronic right wrist, right shoulder, lower back. 3. Head and neck surgery for pharyngeal cancer. FAMILY HISTORY: Mother and father are both with throat cancer ([place]). SOCIAL HISTORY: Previous smoker, about two packs a day for about 40 years. Previously worked in a mill. No alcohol use. Down to five cigarettes a day. Patient finished high school. Has a spouse at home. He is a full code. HOME MEDICATIONS: Please see the chart. PHYSICAL EXAMINATION: Afebrile, respiratory rate 18, blood pressure 120/75, pulse 68-85, sinus rhythm. GENERAL: Patient is cachectic with bitemporal wasting. No respiratory distress. Speaks with a very hoarse voice. Patient has postoperative changes in the neck. No jugular venous distention (JVD) or thyromegaly. No cervical lymphadenopathy. LUNGS: Diminished but clear to auscultation. No wheezing or rales. MOUTH: No white patches. HEART: S1, S2, sinus rhythm. No murmurs, rubs, or gallops. ABDOMEN: Soft, slightly tender, bilateral lower quadrants. No radiation. No costovertebral angle (CVA) tenderness. No rebound or guarding. No hepatosplenomegaly. EXTREMITIES: No cyanosis, clubbing, or pitting edema. LABORATORY DATA: EGD/colonoscopy. Please see the chart. 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 He will be admitted as an inpatient for the following acute issues: IMPRESSION: 1. Esophageal candidiasis causing dysphagia and odynophagia. 2. A 20-pound weight loss secondary to dysphagia and odynophagia to esophageal candidiasis. 3. History of pharyngeal cancer, status post head and neck surgery with radionecrosis. 4. Cachexia secondary to dysphagia with protein-calorie malnutrition. 5. Chronic back pain. PLAN: Patient will be treated with Diflucan 200 mg on day 1, 100 mg daily for 7-14 days until this is healed up. Patient will be kept on full liquid diet, intravenous (IV) fluids for hydration. Nutrition is consulted for supplemental nutrition and calorie count. Repeat CT appropriate in 2 days per gastrointestinal (GI) recommendations and reconsider a feeding tube placement as an inpatient versus up. Physical therapy (PT)/occupational therapy (OT) and acute rehabilitation unit (ARU) consult. Compression stockings for deep venous thrombosis (DVT) prophylaxis. Hypoglycemic protocol. MTDD
[2021-05-12 10:00] VITALS: BP 125/69
[2021-05-12] MEDS: POTASSIUM CHLORIDE 10 MEQ SR TABLET PO SCH ×2 (10:30→12:44)
[2021-05-12 13:39] LABS: MAGNESIUM LEVEL 1.9 MG/DL (1.8-2.4); POTASSIUM SERUM 3.9 MEQ/L (3.5-5.1)
--- NOTE | 2021-05-12 13:40 | IPN ---
PROGRESS NOTE DATE: 05/12/2021 SUBJECTIVE: The patient had difficulty swallowing due to persistent odynophagia. He complains of generalized weakness. He has no nausea or vomiting. He complains of abdominal pain in the epigastric region without radiation. He denies any dysuria, urgency or frequency, fever, chills or flank pain. OBJECTIVE: VITAL SIGNS: Temperature is 97.9, pulse is 49, respiratory rate is 16, blood pressure is 125/69, 97% on room air. GENERAL: The patient is cachectic. Bitemporal wasting, disheveled. Dry mucous membranes. Frail appearing. LUNGS: Diminished. HEART: S1 and S2, sinus bradycardia. ABDOMEN: Soft, tender in the epigastric region. No rebound or guarding. Positive bowel sounds x4 quadrants. EXTREMITIES: No cyanosis, clubbing or pitting edema. LABORATORY DATA: Remarkable for a white count of 16,000. Potassium is 2.5. Pre-albumin is 10.5. ASSESSMENT AND PLAN: This is a 66-year-old male with recent history of pharyngeal cancer status post chemoradiation with secondary radiation necrosis, longstanding history of tobacco abuse, has persistent weight loss of 20 pounds, odynophagia and dysphagia, status post EGD and colonoscopy showing a large shallow and deep ulceration of the proximal sigmoid, distal ascending colon from 40 to 70 cm proximal to the anus, colonic sigmoid polyp 10 to 15 mm, and esophageal plaque consistent with candidiasis. IMPRESSION: Esophageal candidiasis Dysphagia Odynophagia h/o pharyngeal cancer s/p chemo radiation h/o radiation necrosis colonic ulcer Hypokalemia Leukocytosis PLAN: Patient is receiving Diflucan, repeat CT of the abdomen and pelvis. Defer to GI if feeding tube placement can be done during this admission or if patient should be discharged home with PICC line and TPN. k repleted. recheck k and mg. MTDD
[2021-05-12 14:00] VITALS: BP 116/76
[2021-05-12] MEDS: PERCOCET 5MG/325MG TAB PO PRN ×2 (15:25→20:37)
[2021-05-12] MEDS: FLUCONAZOLE 200 MG in IV 1 EA IV SCH (17:59)
[2021-05-12] MEDS ORDERED: FLUCONAZOLE 100 MG in IV 1 EA IV SCH (18:10)
--- NOTE | 2021-05-12 18:49 | IPNPDOC ---
Subjective Date Seen The patient was seen on 05/12/21. Subjective Chief Complaint/HPI Pt presents with malnutrition related to severe dysphagia, odynophagia. Previously irradiated neck. Has had esophageal dilation 1 month ago with marginal success for 4-5 days. He has again developed symptoms of dysphagia and new odynophagia. He has poor po intake for past 2-3 weeks, has lost weight, has worsened malnutrition. Pt had elective endoscopy yesterday showing yeast esophagitis. No restriction/stricture of esophagus seen. Colonoscopy showed suboptimal prep. numerous polyps seen and removed. large deep segmental ulceration of descending/sigmoid colon Events since last encounter Started on diflucan, dysphagia is perhaps slightly less painful, but still having difficulty eating/drinking General: Reports: Fatigue, Malaise Constitutional: Reports: Weakness ENT: Reports: Dysphagia Pulmonary: Reports: Cough; Denies: Dyspnea, Pleuritic Chest Pain, Other Symptoms Cardiovascular: Denies: Chest Pain, Palpitations, Orthopnea, Paroxysmal Noc. Dyspnea, Edema, Lt Headedness, Other Symptoms Gastrointestinal: Reports: Other Symptoms (dysphagia); Denies: Nausea, Vomiting, Diarrhea, Constipation, Melena, Hematochezia Musculoskeletal: Reports: Back Pain; Denies: Neck Pain, Shoulder Pain, Arm Pain, Hand Pain, Leg Pain, Foot Pain, Joint Pain, Muscle Pain, Spasms, Other Symptoms Objective Physical Examination Chest Exam: Positive: Diminished Heart Exam: Positive: Regular Rhythm Abdomen Exam: Positive: Normal bowel sounds Extremity Exam: Negative: Clubbing, Cyanosis, Edema, Normal pulses, Tenderness, Swelling, Other Psych Exam: Positive: Mental status NL, Mood NL, Oriented x 3 Assessment /Plan Assessment Dysphagia, Dysarthria, Odynophagia--I 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 Colon Ulceration--I suspect related to mural ischemia from fecal impaction, however biopsies are pending Abnormal CT A/P/Chest--inlammatory colon lesions, corresponding to the colonoscopy finding---await biopsy, will check CT Colon polyps/Suboptimal colon prep---recommend repeat in 4-6 months Plan/VTE VTE Prophylaxis Ordered?: No Plan Diet: Continue Current, Supplement Diagnostics: CT 1) He will likely need PEG feeding tube placed on this admission unless his swallowing markedly improves in next 24-36 hrs. The yeast esophagitis is probably incidental rather than causative, however would like to give him a chance. 2) Will check CT A/P in am to determine how much edema/inflammation is still present near his colon. This will determine if PEG tube can be safely placed 3) Will re eval tomorrow after CT and colon biopsies back...I am prepared to place PEG on Monday if necessary and safe. 4) Will need repeat colonoscopy as OP in 4-6 months VS, I&O, 24H, Fishbone Vital Signs/I&O Vital Signs Date Time Temp Pulse Resp B/P (MAP) Pulse Ox O2 Delivery O2 Flow Rate FiO2 05/12/21 15:55 16 05/12/21 15:25 99 Room Air 05/12/21 14:00 97.6 72 116/76 (89) I&O- Last 24 Hours up to 6 AM 05/12/21 06:00 Intake Total 1700 ml Output Total 750 ml Balance 950 ml Laboratory Data 24H LABS Laboratory Tests 2 05/12/21 06:11: Immature Granulocyte % (Auto) 0.6, Neutrophils (%) (Auto) 83.0H, Lymphocytes (%) (Auto) 9.5L, Monocytes (%) (Auto) 6.4, Eosinophils (%) (Auto) 0.1, Basophils (%) (Auto) 0.4, Neutrophils # (Auto) 13.5H, Lymphocytes # (Auto) 1.5, Monocytes # (Auto) 1.0H, Eosinophils # (Auto) 0.0, Basophils # (Auto) 0.1, Nucleated Red Blood Cells % (auto) 0.0, Prothrombin Time 15.5H, Prothromb Time International Ratio 1.19, Anion Gap 5L, Glomerular Filtration Rate > 60.0, Calcium Level 8.3L, Magnesium Level 1.8, Total Bilirubin 0.5, Aspartate Amino Transf (AST/SGOT) 12, Alanine Aminotransferase (ALT/SGPT) 13, Alkaline Phosphatase 61, Total Protein 5 .5L, Albumin 2.2L, Albumin/Globulin Ratio 0.7, Prealbumin 10.5L 05/12/21 12:51: Magnesium Level 1.9, Procalcitonin <0.05 CBC/BMP Laboratory Tests 05/12/21 06:11 05/12/21 12:51 CHERELLE CARRILLO MD May 12, 2021 18:49
[2021-05-12] MEDS: RAMELTEON 8 MG TAB (ROZEREM) PO PRN (20:36)
[2021-05-12 22:00] VITALS: BP 127/81
[2021-05-13] MEDS: PERCOCET 5MG/325MG TAB PO PRN ×5 (01:17→23:04)
[2021-05-13 06:00] VITALS: BP 120/50
[2021-05-13] MEDS ORDERED: MAG SULF 1GM/100ML (MAG RUN) 1 GM in IV 1 EA IV ONE (06:30)
[2021-05-13] MEDS: D5W/0.45% SODIUM CHLORIDE 1,000 ML IV SCH ×2 (06:52→18:53)
[2021-05-13 07:13] LABS: BASO # 0.1 10^3/uL (0.0-0.2); BASO % 0.6 % (0.0-1.0); EOS # 0.1 10^3/uL (0.0-0.5); EOS % 0.8 % (0.0-3.0); HEMATOCRIT 34.3 % (42.0-52.0); HEMOGLOBIN 11.5 g/dl (13.5-17.5); LYMPH # 2.1 10^3/uL (1.5-5.0); LYMPH % 17.4 % (24.0-44.0); MEAN CORPUSCULAR HEMOGLOBIN 29.2 pg (27.0-33.0); MEAN CORPUSCULAR HGB CONC 33.5 g/dl (32.0-36.5); MEAN CORPUSCULAR VOLUME 87.1 fl (80.0-96.0); MONO # 0.9 10^3/uL (0.0-0.8); MONO % 7.2 % (2.0-8.0); NEUTROPHILS # 8.7 10^3/uL (1.5-8.5); NEUTROPHILS % 73.4 % (36.0-66.0); PLATELET COUNT, AUTOMATED 399 10^3/uL (150-450); RED BLOOD COUNT 3.94 10^6/uL (4.30-6.10); WHITE BLOOD COUNT 11.8 10^3/uL (4.0-10.0)
[2021-05-13 07:33] LABS: BLOOD UREA NITROGEN 5 MG/DL (7-18); CALCIUM LEVEL 8.8 MG/DL (8.8-10.2); CARBON DIOXIDE LEVEL 30 MEQ/L (21-32); CHLORIDE LEVEL 102 MEQ/L (98-107); CREATININE FOR GFR 0.42 MG/DL (0.70-1.30); GLOMERULAR FILTRATION RATE > 60.0 (>49); GLUCOSE, FASTING 90 MG/DL (70-100); POTASSIUM SERUM 3.5 MEQ/L (3.5-5.1); SODIUM LEVEL 136 MEQ/L (136-145)
[2021-05-13] MEDS ORDERED: ISOVUE-370 76% 100ML VIAL As Ordered ONE (07:56)
[2021-05-13] MEDS: GASTROGRAFIN SOLUTION 30ML PO SCH ×2 (08:00→08:32)
--- NOTE | 2021-05-13 10:58 | REP ---
INDICATION: Colitis follow up/compare CT [place] COMPARISON: 03/26/2021. TECHNIQUE: CT Scan of the abdomen and pelvis was performed with intravenous administration of 100 cc of Isovue 370, without oral contrast. Sagittal and coronal reconstruction images are performed. FINDINGS: Lung bases: There is mild patchy infiltrate/atelectasis in the right lower lobe. Liver: Normal Gallbladder: Unremarkable. Spleen: Normal. Adrenals: Normal. Pancreas: Normal. Kidneys: Normal. Small and large bowel: The previously noted findings of diffuse colitis of the left colon have improved. The findings are less extensive. Previously the left transverse colon and recto sigmoid colon were involved, currently those findings have resolved. There is mild residual diffuse thickening and colitis of the descending colon. Free fluid: There is mild free fluid in the pelvis. Abdominal aorta: Distal abdominal aorta measures 3.0 cm in AP dimension, unchanged. There is moderate atherosclerotic calcification and plaquing of the abdominal aorta and its branches. Both common iliac arteries are ectatic. The right common iliac artery measures 1.9 cm in diameter and the left 1.6 cm. Adenopathy: None. Appendix: Not inflamed. Osseous structures: There are degenerative changes of the spine without compression deformity. Pelvis: No mass. IMPRESSION: Mild patchy atelectasis/infiltrate right lower lobe. The previously noted findings of diffuse colitis of the left colon have improved. The findings are less extensive. Previously the left transverse colon and recto sigmoid colon were involved, currently those findings have resolved. There is mild residual diffuse thickening and colitis of the descending colon. There is mild free fluid in the pelvis. <Electronically signed by Logan Samuels > 05/13/21 [id number]
--- NOTE | 2021-05-13 13:06 | IPNPDOC ---
Date Seen The patient was seen on 05/13/21. Progress Note SUBJECTIVE: refuses to be npo despite aspiration risk and speech recommendation. pt says,"I want to continue with taking my pain meds and eating." right sided pna noted on ctabd today. no fever, but increased wbc started on iv levaquin. still w persistent odynophagia and dysphagia. OBJECTIVE: VITAL SIGNS: see below GENERAL: The patient is cachectic. Bitemporal wasting, disheveled. Dry mucous membranes. Frail appearing. hoarse voice but no stridor or use of resp acc mm. LUNGS: Diminished. Right ml crackles. no wheezing. HEART: S1 and S2, sinus bradycardia. ABDOMEN: Soft, tender in the epigastric region. No rebound or guarding. Positive bowel sounds x4 quadrants. EXTREMITIES: No cyanosis, clubbing or pitting edema. 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 IMPRESSION: Esophageal candidiasis Dysphagia Odynophagia Aspiration RML pneumonia due to aspiration h/o pharyngeal cancer s/p chemo radiation h/o radiation necrosis colonic ulcer Hypokalemia, resolved Hypoalbuminemia Protein Calorie Malnutrition BMI 14.5 Failure to thrive PLAN: pt refuses to be npo despite aspiration risk and new right sided pna. defer to GI Dr. Estrada for PEG tube placement. continue ivfluids. modified diet . diflucan and start on levaquin. learning center instructor consult for tube feeding once PEG is placed. supportive care. compression stockings for dvt prophylaxis. VS, I&O, 24H, Fishbone Vital Signs/I&O Vital Signs Date Time Temp Pulse Resp B/P (MAP) Pulse Ox O2 Delivery O2 Flow Rate FiO2 05/13/21 12:59 20 05/13/21 06:49 Room Air 05/13/21 06:00 97.3 45 120/50 (73) 95 I&O- Last 24 Hours up to 6 AM 05/13/21 06:00 Intake Total 2450 ml Output Total 350 ml Balance 2100 ml Laboratory Data 24H LABS Laboratory Tests 2 05/13/21 06:42: Immature Granulocyte % (Auto) 0.6, Neutrophils (%) (Auto) 73.4H, Lymphocytes (%) (Auto) 17.4L, Monocytes (%) (Auto) 7.2, Eosinophils (%) (Auto) 0.8, Basophils (%) (Auto) 0.6, Neutrophils # (Auto) 8.7H, Lymphocytes # (Auto) 2.1, Monocytes # (Auto) 0.9H, Eosinophils # (Auto) 0.1, Basophils # (Auto) 0.1, Nucleated Red Blood Cells % (auto) 0.0, Anion Gap 4L, Glomerular Filtration Rate > 60.0, Calcium Level 8.8 CBC/BMP Laboratory Tests 05/13/21 06:42 ARIANNE BOYD MD May 13, 2021 13:06
[2021-05-13] MEDS: LevoFLOXacin IV 750 MG in IV 1 EA IV SCH (13:56)
[2021-05-13 14:00] VITALS: BP 102/60
--- NOTE | 2021-05-13 15:46 | IPNPDOC ---
Subjective Date Seen The patient was seen on 05/13/21. Subjective Chief Complaint/HPI Dysphagia persists, also has some aspiration at times, Levaquin started for possible right lobe infiltrate. Speech therapy eval appreciated. NPO recommended. Pt refusing strict NPO, wants to keep taking meds. His dyshagia has not improved with therapy for sanjay esophagitis. His CT AP shows significant improvement in his colonic process/colitis from his previous CT Constitutional: Reports: Malaise, Fatigue ENT: Reports: Dysphagia Cardiovascular: Denies: Chest Pain, Palpitations, Orthopnea, Paroxysmal Noc. Dyspnea, Edema, Lt Headedness, Other Symptoms Gastrointestinal: Denies: Nausea, Vomiting, Abdominal Pain, Diarrhea, Constipation, Melena, Hematochezia, Other Symptoms Musculoskeletal: Reports: Back Pain Psych: Reports: Mood Normal; Denies: Depression, Other Psych Other systems hoarse voice Objective Physical Examination General Exam: Positive: Cooperative Eye Exam: Positive: PERRLA, Conjunctiva & lids normal ENT Exam: Positive: Atraumatic, Mucous membr. moist/pink Chest Exam: Positive: Diminished Heart Exam: Positive: Regular Rhythm Telemetry: Positive: No significant arrhythmia Abdomen Exam: Positive: Normal bowel sounds, Soft; Negative: BS Hyperactive, BS Hypoactive, Tenderness, Hepatospenomegaly, Mass, Hernia, Other Extremity Exam: Negative: Clubbing, Cyanosis, Edema, Normal pulses, Tenderness, Swelling, Other Psych Exam: Positive: Mental status NL, Mood NL, Oriented x 3 Assessment /Plan Assessment Dysphagia-Neurogeni/related to neck radiation. Treatment of sanjay esophagitis has not improved symptoms/No change. aspirating Colitis/ulcerations/abnormal CT-Path pending. Todays CT has improved significantly Possible aspiration pneumonia/pneumonitis--On levaquin. strict NPO recommended by speech. Pt refusing strict NPO. wants to cont meds po. Colon Polyps:path pending. will need repeat colonoscopy in 6 months due to suboptimal prep Plan/VTE VTE Prophylaxis Ordered?: No Plan IVF: Initiate, Continue Diet: Make NPO, Continue Current, Supplement Therapy: Speech Pt and Family Services: Home Care Diagnostics: CT Plan is to place PEG tube tomorrow afternoon Strict npo after am meds He will need nutrition assessment, PEG teaching VS, I&O, 24H, Fishbone Vital Signs/I&O Vital Signs Date Time Temp Pulse Resp B/P (MAP) Pulse Ox O2 Delivery O2 Flow Rate FiO2 05/13/21 13:29 18 05/13/21 06:49 Room Air 05/13/21 06:00 97.3 45 120/50 (73) 95 l I&O- Last 24 Hours up to 6 AM 05/13/21 06:00 Intake Total 2450 ml Output Total 350 ml Balance 2100 ml Laboratory Data 24H LABS Laboratory Tests 2 05/13/21 06:42: Immature Granulocyte % (Auto) 0.6, Neutrophils (%) (Auto) 73.4H, Lymphocytes (%) (Auto) 17.4L, Monocytes (%) (Auto) 7.2, Eosinophils (%) (Auto) 0.8, Basophils (%) (Auto) 0.6, Neutrophils # (Auto) 8.7H, Lymphocytes # (Auto) 2.1, Monocytes # (Auto) 0.9H, Eosinophils # (Auto) 0.1, Basophils # (Auto) 0.1, Nucleated Red Blood Cells % (auto) 0.0, Anion Gap 4L, Glomerular Filtration Rate > 60.0, Calcium Level 8.8 CBC/BMP Laboratory Tests 05/13/21 06:42 Microbiology Microbiology 05/13/21 Blood Culture, Received Pending 05/13/21 Blood Culture, Received Pending CHERELLE CARRILLO MD May 13, 2021 15:46
[2021-05-13] MEDS: FLUCONAZOLE 200 MG in IV 1 EA IV SCH (17:22)
[2021-05-13 20:00] VITALS: BP 107/62
[2021-05-13] MEDS: RAMELTEON 8 MG TAB (ROZEREM) PO PRN (23:04)
[2021-05-14] VITALS (12 sets, daily range): BP systolic 106–150; BP diastolic 58–78
[2021-05-14] MEDS: D5W/0.45% SODIUM CHLORIDE 1,000 ML IV SCH ×2 (03:44→16:16)
[2021-05-14] MEDS: PERCOCET 5MG/325MG TAB PO PRN ×3 (03:59→16:34)
--- NOTE | 2021-05-14 11:32 | IPNPDOC ---
Date Seen The patient was seen on 05/14/21. Progress Note SUBJECTIVE: no fever chills. nonproductive cough and hoarse voice unchanged. no sob. npo except meds. peg today. no other issues overnight. OBJECTIVE: VITAL SIGNS: see below GENERAL: no distress. aaox 3. answering questions appropriately cachectic. Bitemporal wasting, disheveled. Dry mucous membranes. Frail appearing. hoarse voice but no stridor or use of resp acc mm. LUNGS: Diminished. Right ml crackles. no wheezing. HEART: S1 and S2, sinus bradycardia. ABDOMEN: Soft, tender in the epigastric region. No rebound or guarding. Positive bowel sounds x4 quadrants. EXTREMITIES: No cyanosis, clubbing or pitting edema. 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 IMPRESSION: Esophageal candidiasis Dysphagia Odynophagia Aspiration RML pneumonia due to aspiration h/o pharyngeal cancer s/p chemo radiation h/o radiation necrosis colonic ulcer Hypokalemia, resolved Hypoalbuminemia Protein Calorie Malnutrition BMI 14.5 Failure to thrive PLAN: npo except meds. peg today. on iv diflucan and iv levaquin. monitor for qt prolongation. baseline ekg done yesterday dr. thomas consulted. nutrition consulted for feeding tube recommendations. once feeding tube can be used, trial of enteral feeding and dc home if stable. can change meds via peg. VS, I&O, 24H, Fishbone Vital Signs/I&O Vital Signs Date Time Temp Pulse Resp B/P (MAP) Pulse Ox O2 Delivery O2 Flow Rate FiO2 05/14/21 08:29 14 05/14/21 06:00 97.5 72 110/63 (79) 95 Room Air I&O- Last 24 Hours up to 6 AM 05/14/21 06:00 Intake Total 2740 ml Output Total 2300 ml Balance 440 ml Laboratory Data 24H LABS Laboratory Tests 2 05/14/21 08:36: Coronavirus (COVID-19)(PCR) NEGATIVE Microbiology Microbiology 05/13/21 Blood Culture, Received Pending 05/13/21 Blood Culture, Received Pending ARIANNE BOYD MD May 14, 2021 11:32
[2021-05-14] MEDS: LevoFLOXacin IV 750 MG in IV 1 EA IV SCH (12:38)
[2021-05-14] MEDS ORDERED: LIDOCAINE 2% 100MG/5ML SDV (FOR ANES.) As Ordered ONE (15:14)
[2021-05-14] MEDS ORDERED: propofoL 200 MG/20 ML VIAL As Ordered ONE (15:14)
[2021-05-14] MEDS ORDERED: fentaNYL 100 MCG/2 ML INJECTION (J3010) As Ordered ONE (15:15)
--- NOTE | 2021-05-14 15:54 | ROOR ---
Patient Name: Nawaf Dsouza Procedure Date: 05/14/2021 3:09 PM Date of : 1955 Age: 66 Room: [facility] Gender: Male Note Status: Finalized Procedure: Upper GI endoscopy Indications: Dysphagia, Anorexia, Malnutrition Providers: Nawaf Estrada MD Referring MD: Arcadio [facility] Matos MD, 2. Inpatient 2. Inpatient Requesting Provider: Medicines: Monitored Anesthesia Care Complications: No immediate complications. Procedure: Pre-Anesthesia Assessment: - The heart rate, respiratory rate, oxygen saturations, blood pressure, adequacy of pulmonary ventilation, and response to care were monitored throughout the procedure. The Endoscope was introduced through the mouth, and advanced to the second part of duodenum. The upper GI endoscopy was accomplished without difficulty. The patient tolerated the procedure well. Findings: The esophagus was normal. The stomach was normal. The examined duodenum was normal. Placement of an externally removable PEG with no T-fasteners was successfully completed. The external bumper was at the 1.5 cm marking on the tube. Estimated blood loss: none. The patient was placed in the supine position for PEG placement. The stomach was insufflated to appose gastric and abdominal darling. A site was located in the body of the stomach with excellent transillumination for placement. The abdominal wall was marked and prepped in a sterile manner. The area was anesthetized with 3 mL of 0.5% lidocaine. The trocar needle was introduced through the abdominal wall and into the stomach under direct endoscopic view. A snare was introduced through the endoscope and opened in the gastric lumen. The guide wire was passed through the trocar and into the open snare. The snare was closed around the guide wire. The endoscope and snare were removed, pulling the wire out through the mouth. A skin incision was made at the site of needle insertion. The externally removable 24 Fr Levon-Zhui Xin gastrostomy tube was lubricated. The G-tube was tied to the guide wire and pulled through the mouth and into the stomach. The trocar needle was removed, and the gastrostomy tube was pulled out from the stomach through the skin. The external bumper was attached to the gastrostomy tube, and the tube was cut to remove the guide wire. The final position of the gastrostomy tube was confirmed by relook endoscopy, the distal tip was secured to the bowel wall with a clip, and skin marking noted to be 1.5 cm at the external bumper. The final tension and compression of the abdominal wall by the PEG tube and external bumper were checked and revealed that the bumper was loose and lightly touching the skin. The feeding tube was capped, and the tube site cleaned and dressed. Impression: - Normal esophagus. (no further yeast, no stricture) - Normal stomach. - Normal examined duodenum. - An externally removable PEG placement was successfully completed. - No specimens collected. Recommendation: - Please follow the post-PEG recommendations including: Nutrition consult for formula and volume, advance food and medications per primary care provider, dry dressing only, may use PEG today for meds and water and may use PEG tomorrow for feedings. - Return to my office in 2 weeks. Procedure Code(s): --- Professional --- 46422, Esophagogastroduodenoscopy, flexible, transoral; with directed placement of percutaneous gastrostomy tube Diagnosis Code(s): --- Professional --- R13.10, Dysphagia, unspecified R63.0, Anorexia E46, Unspecified protein-calorie malnutrition CPT copyright 2019 [employer]. All rights reserved. The codes documented in this report are preliminary and upon sales apprentice review may be revised to meet current compliance requirements. Nawaf Estrada MD Nawaf Estrada MD 05/14/2021 3:53:48 PM Electronically signed by Nawaf Estrada MD Number of Addenda: 0 Note Initiated On: 05/14/2021 3:09 PM Estimated Blood Loss: Estimated blood loss: none.
--- NOTE | 2021-05-14 16:26 | ECGEPIP ---
[facility] Test Date: 2021-05-13 Pat Name: CHERELLE GREENBERG Department: Room: [place] [address] Gender: Male Pet Walker: RADHA : 1955 Requested By: ARIANNE Johnson Order Number: [id number] Reading MD: Satish Hernandez Measurements Intervals [place] Rate: 53 P: 81 OH: 110 QRS: 67 QRSD: 88 T: 60 QT: 480 QTc: 450 Interpretive Statements Sinus bradycardia with marked sinus arrhythmia with short [place] Nonspecific T wave abnormality Comparison tracing not on file Electronically Signed on 05-14-2021 16:26:21 EDT by Satish Hernandez
[2021-05-14] MEDS: FLUCONAZOLE 200 MG in IV 1 EA IV SCH (17:14)
[2021-05-14] MEDS ORDERED: NS 1,000 ML IV SCH (17:20)
[2021-05-14] MEDS ORDERED: diphenhydrAMINE 50MG/ML VIAL (J1200) IV PRN (17:20)
[2021-05-14] MEDS ORDERED: EPIDURAL/PCA KEYS XX PRN (17:20)
[2021-05-14] MEDS ORDERED: MORPHINE 1MG/ML IN 0.9% NACL 100ML IV BAG IV PRN (17:20)
[2021-05-14] MEDS ORDERED: NALOXONE INJ 0.4MG/1ML VIAL (J2310 PER 1MG) IV PRN (17:20)
[2021-05-14] MEDS ORDERED: MORPHINE 4 MG/ML 1ML VIAL/SYRINGE (J2270) IV ONE (18:00)
[2021-05-15] VITALS (9 sets, daily range): BP systolic 84–116; BP diastolic 48–62
[2021-05-15] MEDS: D5W/0.45% SODIUM CHLORIDE 1,000 ML IV SCH (03:15)
[2021-05-15 09:12] LABS: HEMATOCRIT 36.2 % (42.0-52.0); HEMOGLOBIN 12.3 g/dl (13.5-17.5); MEAN CORPUSCULAR HEMOGLOBIN 30.4 pg (27.0-33.0); MEAN CORPUSCULAR VOLUME 89.4 fl (80.0-96.0); PLATELET COUNT, AUTOMATED 454 10^3/uL (150-450); RED BLOOD COUNT 4.05 10^6/uL (4.30-6.10)
[2021-05-15 09:37] LABS: ALBUMIN 2.3 GM/DL (3.2-5.2); ALT/SGPT 14 U/L (12-78); BILIRUBIN,TOTAL 0.3 MG/DL (0.2-1.0); BLOOD UREA NITROGEN 3 MG/DL (7-18); CALCIUM LEVEL 8.8 MG/DL (8.8-10.2); CARBON DIOXIDE LEVEL 34 MEQ/L (21-32); CHLORIDE LEVEL 101 MEQ/L (98-107); CREATININE FOR GFR 0.44 MG/DL (0.70-1.30); GLOMERULAR FILTRATION RATE > 60.0 (>49); GLUCOSE, FASTING 86 MG/DL (70-100); POTASSIUM SERUM 3.1 MEQ/L (3.5-5.1); SODIUM LEVEL 140 MEQ/L (136-145); TOTAL PROTEIN 5.3 GM/DL (6.4-8.2)
[2021-05-15 10:24] LABS: PREALBUMIN 13.6 MG/DL (20.0-40.0)
[2021-05-15] MEDS ORDERED: NS 1,000 ML IV ONE ×2 (10:55→16:00)
[2021-05-15] MEDS ORDERED: POTASSIUM CHLORIDE 10% LIQ 20 MEQ/15 ML UDC PEG ONE (10:55)
--- NOTE | 2021-05-15 11:12 | IPNPDOC ---
Date Seen The patient was seen on 05/15/21. Progress Note SUBJECTIVE: pt adamant about being discharged. peg placed yesterday, tube feeding recommendation by senior analytical chemist started today. PFS to assist in arranging home care and tube feeds for home. hypotensive today sbp 88mmhg given ivfluids. afebrile . but increased wbc 13 despite iv levaquin. OBJECTIVE: VITAL SIGNS: see below GENERAL:anxious no distress. aaox 3. answering questions appropriately cachectic. Bitemporal wasting, disheveled. Dry mucous membranes. Frail appearing. hoarse voice but no stridor or use of resp acc mm. LUNGS: Diminished. Right ml crackles. no wheezing. HEART: S1 and S2, sinus bradycardia. ABDOMEN: Soft,PEG No rebound or guarding. Positive bowel sounds x4 quadrants. EXTREMITIES: No cyanosis, clubbing or pitting edema. 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 IMPRESSION: Esophageal candidiasis-on iv diflucan to complete 14 day course Dysphagia-s/p peg Odynophagia due to candidiasis-on diflucan Aspiration -PEG placed 05/14/21 RML pneumonia due to aspiration-on iv levaquin but increased wbc hypotension-r/o gram neg sepsis. check lactic acid, blood cx, ivfluids, continue iv levaquin for now, but if no response, may need broader spectrum coverage and levophed iv gtt. h/o pharyngeal cancer s/p chemo radiation h/o radiation necrosis colonic ulcer Hypokalemia, resolved Hypoalbuminemia Protein Calorie Malnutrition BMI 14.5 Failure to thrive-on tube feeds . senior analytical chemist tube feed recommendations started today. disposition: not stable for dc today due to hypotension. senior analytical chemist to assist in bolus feeding recommendations-reconsulted. pfs to assist in home care for tube feeds. VS, I&O, 24H, Fishbone Vital Signs/I&O Vital Signs Date Time Temp Pulse Resp B/P (MAP) Pulse Ox O2 Delivery O2 Flow Rate FiO2 05/15/21 10:46 98.3 67 16 84/48 (60) 94 Room Air I&O- Last 24 Hours up to 6 AM 05/15/21 06:00 Intake Total 2360 ml Output Total 1300 ml Balance 1060 ml Laboratory Data 24H LABS Laboratory Tests 2 05/14/21 14:15: 05/15/21 08:47: Nucleated Red Blood Cells % (auto) 0.0, Anion Gap 5L, Glomerular Filtration Rate > 60.0, Calcium Level 8.8, Total Bilirubin 0.3, Aspartate Amino Transf (AST/SGOT) 11, Alanine Aminotransferase (ALT/SGPT) 14, Alkaline Phosphatase 70, Total Protein 5.3L, Albumin 2.3L, Albumin/Globulin Ratio 0.8, Prealbumin 13.6L CBC/BMP Laboratory Tests 05/15/21 08:47 Microbiology Microbiology 05/14/21 Gram Stain - Final, Complete 05/14/21 Sputum Culture - Final, Complete 05/13/21 Blood Culture - Preliminary, Resulted No growth after 24 hours . All specim... 05/13/21 Blood Culture - Preliminary, Resulted No growth after 24 hours . All specim... ARIANNE BOYD MD May 15, 2021 11:12
[2021-05-15] MEDS: MIDODRINE 5 MG TAB PEG SCH ×2 (11:29→15:15)
[2021-05-15] MEDS ORDERED: NS 1,000 ML IV SCH (11:50)
[2021-05-15] MEDS: LevoFLOXacin IV 750 MG in IV 1 EA IV SCH (12:51)
[2021-05-15] MEDS ORDERED: HYDROcodone/APAP LIQUID 7.5-325MG 15ML UDC (LORTAB ELIXIR) PEG PRN (13:05)
[2021-05-15] MEDS ORDERED: GI COCKTAIL 50ML BTL(HYOSCYAMINE/MAALOX/LIDOCAINE VISCOUS)(1:3:1) PO PRN (13:05)
[2021-05-15] MEDS ORDERED: NALOXONE INJ 0.4MG/1ML VIAL (J2310 PER 1MG) IV PRN (13:30)
[2021-05-15] MEDS ORDERED: HYDROcodone/APAP LIQUID 7.5-325MG 15ML UDC (LORTAB ELIXIR) FT PRN (13:30)
[2021-05-15] MEDS ORDERED: HYDROcodone/APAP LIQUID 7.5-325MG 15ML UDC (LORTAB ELIXIR) FT ONE (13:45)
[2021-05-15] MEDS ORDERED: GI COCKTAIL 50ML BTL(HYOSCYAMINE/MAALOX/LIDOCAINE VISCOUS)(1:3:1) PO ONE (14:00)
[2021-05-15] MEDS: PANTOPRAZOLE 40MG VIAL (C9113 PER 1) IV SCH ×2 (14:14→21:23)
[2021-05-15] MEDS: SUCRALFATE SUSP 1GM/10ML UD PO SCH ×3 (14:14→23:46)
[2021-05-15] MEDS: NS 1,000 ML IV SCH ×2 (14:15→15:46)
[2021-05-15] MEDS: FLUCONAZOLE 200 MG in IV 1 EA IV SCH (17:16)
[2021-05-15] MEDS: MORPHINE 10MG/0.5ML ORAL CONCENTRATE SOLUTION U/D PEG PRN ×2 (17:17→21:24)
[2021-05-15] MEDS: RAMELTEON 8 MG TAB (ROZEREM) PO PRN (21:23)
[2021-05-16 02:00] VITALS: BP 114/60
[2021-05-16] MEDS: MORPHINE 10MG/0.5ML ORAL CONCENTRATE SOLUTION U/D PEG PRN ×5 (03:21→23:33)
[2021-05-16] MEDS: SUCRALFATE SUSP 1GM/10ML UD PO SCH ×4 (05:05→23:28)
[2021-05-16 06:00] VITALS: BP 114/54
[2021-05-16] MEDS: MIDODRINE 5 MG TAB PEG SCH ×3 (08:05→16:41)
[2021-05-16] MEDS: PANTOPRAZOLE 40MG VIAL (C9113 PER 1) IV SCH ×2 (08:05→20:16)
[2021-05-16 08:06] VITALS: BP 106/50
[2021-05-16 12:34] VITALS: BP 110/52
[2021-05-16] MEDS: LevoFLOXacin IV 750 MG in IV 1 EA IV SCH (12:37)
[2021-05-16] MEDS: SIMETHICONE 80MG CHEW TAB PO PRN ×2 (12:52→18:12)
[2021-05-16 14:00] VITALS: BP 126/66
[2021-05-16] MEDS: FLUCONAZOLE 200 MG in IV 1 EA IV SCH (18:13)
--- NOTE | 2021-05-16 19:04 | IPN ---
PROGRESS NOTE DATE: 05/16/2021 SUBJECTIVE: Yesterday, patient was continued on continuous tube feedings with residuals of 200 and complains of slight abdominal discomfort. Today, we are attempting bolus feedings. No fever or chills overnight. Complains of some gas pain this morning. OBJECTIVE: VITAL SIGNS: Temperature 98.4, pulse 71, respiratory rate 18, blood pressure 110/52, 94% on room air. GENERAL: Patient is awake, alert, oriented to person, place and time, answering questions appropriately. Frail appearing with hoarse voice. HEENT: Cachectic with bitemporal wasting and dry mucous membranes. LUNGS: Diminished. Right-sided fine crepitations. No wheezing or rales. HEART: S1, S2. Episodes of sinus bradycardia. ABDOMEN: Soft. Feeding tube in place. No rebound or guarding. Positive bowel sounds times four quadrants. EXTREMITIES: No cyanosis, clubbing or pitting edema. LABORATORY DATA/IMAGING STUDIES/MICROBIOLOGY: Have been reviewed. 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 Esophagogastroduodenoscopy (EGD) shows a fungal esophagitis as well as a deep ulceration in the sigmoid colon IMPRESSION: 1. Esophageal candidiasis. To complete Diflucan 14 day course, but may be transitioned to pill via percutaneous endoscopic gastrostomy (PEG). 2. Dysphagia and odynophagia due to candidiasis status post feeding tube placement. 3. Aspiration pneumonia in the right middle lobe on intravenous (IV) Levaquin. May transition to by mouth medication once feeding tube is finalized. 4. Failure to thrive with protein calorie malnutrition. Body mass index (BMI) 14.5. 5. 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 Nutrition was consulted. Will try bolus feeding for now. Discharge once home care is available and no residual on tube feedings.
[2021-05-16 22:00] VITALS: BP 120/68
[2021-05-17] MEDS: SUCRALFATE SUSP 1GM/10ML UD PO SCH ×3 (05:00→18:48)
[2021-05-17 06:00] VITALS: BP 128/72
[2021-05-17] MEDS ORDERED: DIFL200T PO (07:05)
[2021-05-17] MEDS ORDERED: LEVO750T13 PO (07:05)
[2021-05-17 07:26] LABS: BASO # 0.1 10^3/uL (0.0-0.2); BASO % 0.3 % (0.0-1.0); EOS % 0.2 % (0.0-3.0); HEMOGLOBIN 11.6 g/dl (13.5-17.5); LYMPH # 0.8 10^3/uL (1.5-5.0); LYMPH % 4.6 % (24.0-44.0); MEAN CORPUSCULAR HEMOGLOBIN 30.4 pg (27.0-33.0); MEAN CORPUSCULAR HGB CONC 35.2 g/dl (32.0-36.5); MEAN CORPUSCULAR VOLUME 86.4 fl (80.0-96.0); MONO # 1.5 10^3/uL (0.0-0.8); MONO % 8.9 % (2.0-8.0); NEUTROPHILS # 14.1 10^3/uL (1.5-8.5); NEUTROPHILS % 85.5 % (36.0-66.0); PLATELET COUNT, AUTOMATED 399 10^3/uL (150-450); RED BLOOD COUNT 3.82 10^6/uL (4.30-6.10)
[2021-05-17 07:27] LABS: WHITE BLOOD COUNT 16.5 10^3/uL (4.0-10.0)
[2021-05-17 07:54] LABS: BLOOD UREA NITROGEN 7 MG/DL (7-18); CALCIUM LEVEL 8.2 MG/DL (8.8-10.2); CARBON DIOXIDE LEVEL 32 MEQ/L (21-32); CHLORIDE LEVEL 96 MEQ/L (98-107); CREATININE FOR GFR 0.47 MG/DL (0.70-1.30); GLOMERULAR FILTRATION RATE > 60.0 (>49); GLUCOSE, FASTING 142 MG/DL (70-100); MAGNESIUM LEVEL 1.9 MG/DL (1.8-2.4); POTASSIUM SERUM 3.2 MEQ/L (3.5-5.1); SODIUM LEVEL 132 MEQ/L (136-145)
[2021-05-17] MEDS: PANTOPRAZOLE 40MG VIAL (C9113 PER 1) IV SCH ×2 (08:21→20:12)
[2021-05-17] MEDS: MIDODRINE 5 MG TAB PEG SCH ×3 (08:21→16:46)
[2021-05-17] MEDS: MORPHINE 10MG/0.5ML ORAL CONCENTRATE SOLUTION U/D PEG PRN (08:26)
[2021-05-17] MEDS ORDERED: OMEP40CA4 PEG (09:18)
[2021-05-17] MEDS ORDERED: MORP1SOL PEG (09:19)
[2021-05-17 09:41] LABS: C REACTIVE PROTEIN QUANTITATIV 8.15 MG/DL (0.00-0.30)
[2021-05-17 09:57] LABS: ERYTHROCYTE SEDIMENTATION RATE 34 mm/hr (0-20)
[2021-05-17] MEDS ORDERED: MAG SULF 1GM/100ML (MAG RUN) 1 GM in IV 1 EA IV ONE (10:00)
[2021-05-17] MEDS ORDERED: POTASSIUM CHLORIDE 10% LIQ 20 MEQ/15 ML UDC PO ONE (10:00)
--- NOTE | 2021-05-17 10:40 | REP ---
INDICATION: wbc 16 leukocytosis cough. COMPARISON: PA and lateral chest, 08/19/2019. TECHNIQUE: Upright AP portable chest image was obtained. FINDINGS: The lungs are clear. There is no lobar consolidation or pleural effusion. There is cardiomegaly and aortic ectasia consistent with benign essential hypertension. The upper abdominal bowel gas pattern is normal. There is mild dextroscoliosis of the thoracolumbar spine. IMPRESSION: 1. Findings consistent with hypertension. 2. No evidence of acute cardiopulmonary pathology no significant change. <Electronically signed by Omid Francis > 05/17/21 [id number]
--- NOTE | 2021-05-17 12:11 | IPN ---
PROGRESS NOTE DATE: 05/17/2021 SUBJECTIVE: The patient still complains of lower quadrant abdominal discomfort, better with pain medications. He is tolerating his tube feedings. He otherwise has no cough or shortness of breath, fever or chills overnight. Unable to be discharged due to PFS and home care not being available during the Weekend. The patient is otherwise medically stable and has no other acute medical issues. OBJECTIVE: VITAL SIGNS: Temperature 99.5, pulse 61, respiratory rate 16, blood pressure 128/72, 94% on room air. GENERAL: Patient is cachectic, frail appearing, no distress, bitemporal wasting. No JVD or thyromegaly. No cervical lymphadenopathy. LUNGS: Clear to auscultation, no wheezing or rales. HEART: S1, S2. Sinus rhythm. ABDOMEN: Soft. Feeding tube in place. Slightly tender in the left lower quadrant, no rebound or guarding. EXTREMITIES: No cyanosis, clubbing or pitting edema. LABORATORY DATA/IMAGING STUDIES/MICROBIOLOGY: Have been reviewed and notable for slight increase in white count to 16.5 and potassium 3.2. ASSESSMENT/PLAN: This is a 66-year-old male with diagnosis of pharyngeal CA, status post chemotherapy, radiation with radiation necrosis, longstanding tobacco abuse, weight loss of 20 pounds with persistent odynophagia and dysphagia, status post EGD showing fungal esophagitis and colonoscopy showing deep ulceration in the sigmoid colon. The patient has required feeding tube placement after treatment with Diflucan for fungal esophagitis. IMPRESSION: 1. Failure to thrive with 20 pound weight loss in setting of pharyngeal CA, status post chemo/radiation. The patient is currently on tube feedings per range operator. If the patient is tolerating will continue with bolus feedings at 400 mL at 8 a.m., noon, 5 p.m., 8 p.m., 12 midnight, 4 a.m. with 100 mL of water flushes before and after tube feedings. PFS has been consulted and home care referral as outpatient. 2. Esophageal candidiasis: The patient is to complete 14 days of Diflucan, 200 mg has been sent to his outpatient pharmacy via feeding tube. 3. Aspiration pneumonia in the right middle lobe, on IV Levaquin in the hospital due to NPO status, may transition to Levaquin as outpatient. 4. Dysphagia/odynophagia due to candidiasis, currently being treated with Diflucan. 5. Protein calorie malnutrition, on tube feedings. DISPOSITION: May discharge home with home care once PFS and home care referral are available. Pain control was as needed Roxanol 10 every 4, continue Protonix twice daily, Prilosec and Nicotine patch for active tobacco abuse.
[2021-05-17] MEDS: LevoFLOXacin IV 750 MG in IV 1 EA IV SCH (12:57)
[2021-05-17 14:08] LABS: BODY FLUID CULTURE Not indicated. (.); LEGIONELLA ANTIGEN URINE Negative (Negative); ORGANISM ID Not indicated. (.); SPECIMEN SOURCE Urine (.); URINE STREP PNEUMONIAE ANTIGEN Negative (Negative)
[2021-05-17] MEDS: FLUCONAZOLE 200 MG in IV 1 EA IV SCH (18:48)
[2021-05-17 22:00] VITALS: BP 165/90
[2021-05-18] MEDS: MORPHINE 10MG/0.5ML ORAL CONCENTRATE SOLUTION U/D PEG PRN ×2 (04:14→11:35)
[2021-05-18 06:00] VITALS: BP 142/67
[2021-05-18] MEDS: SUCRALFATE SUSP 1GM/10ML UD PO SCH ×4 (06:00→18:05)
[2021-05-18] MEDS: MIDODRINE 5 MG TAB PEG SCH ×2 (08:00→11:36)
[2021-05-18] MEDS ORDERED: POTASSIUM CHLORIDE 10 MEQ SR TABLET PO ONE (09:40)
[2021-05-18] MEDS ORDERED: PILL CUTTER 1 EACH XX PRN (11:30)
[2021-05-18] MEDS: PANTOPRAZOLE 40MG VIAL (C9113 PER 1) IV SCH ×2 (11:35→22:10)
[2021-05-18] MEDS: LevoFLOXacin IV 750 MG in IV 1 EA IV SCH (12:46)
[2021-05-18 14:00] VITALS: BP 96/61
[2021-05-18 16:35] VITALS: BP 119/67
[2021-05-18] MEDS: MORPHINE 10MG/0.5ML ORAL CONCENTRATE SOLUTION U/D SL PRN ×2 (17:00→22:10)
[2021-05-18] MEDS ORDERED: FLUCONAZOLE 100 MG TAB PO SCH (18:00)
--- NOTE | 2021-05-18 19:54 | IPNPDOC ---
Subjective Date Seen The patient was seen on 05/18/21. Subjective Chief Complaint/HPI Patient does not have any complaints at this morning. Feeling well wants to go home. Patient did have a bout of vomiting last night. Denies any odynophagia. No fever or chills Objective Physical Examination General Exam: Positive: Alert, Cooperative, No Acute Distress Eye Exam: Positive: PERRLA, Conjunctiva & lids normal ENT Exam: Positive: Atraumatic, Mucous membr. 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 The patient has required feeding tube placement after treatment with Diflucan for fungal esophagitis. 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 as well as candidiasis Status post PEG tube placement Will get another cookie swallow to see if there is persistent aspiration For now we will continue tube for things And oral feeding for pleasure only Aspiration pneumonia in the right middle lobe 7 days of levofloxacin Deep colonic ulcers in the sigmoid colon and descending colon Final diagnosis regarding the etiology of these ulcers is still pending ischemic versus viral Slides have been sent to [facility] 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 Plan/VTE VTE Prophylaxis Ordered?: Yes Plan IVF: Initiate, Continue Diet: Make NPO, Continue Current, Supplement Therapy: Speech Pt and Family Services: Home Care Diagnostics: CT VS, I&O, 24H, Fishbone Vital Signs/I&O Vital Signs Date Time Temp Pulse Resp B/P (MAP) Pulse Ox O2 Delivery O2 Flow Rate FiO2 05/18/21 17:00 17 Room Air 05/18/21 16:35 63 119/67 (84) 05/18/21 14:00 97.7 98 I&O- Last 24 Hours up to 6 AM 05/18/21 06:00 Intake Total 1850 ml Balance 1850 ml Laboratory Data Microbiology Microbiology 05/14/21 Gram Stain - Final, Complete 05/14/21 Sputum Culture - Final, Complete 05/13/21 Blood Culture - Final, Complete NO GROWTH AFTER 5 DAYS 05/13/21 Blood Culture - Final, Complete NO GROWTH AFTER 5 DAYS Donya Cristina MD May 18, 2021 18:28
[2021-05-18 22:00] VITALS: BP 120/67
[2021-05-18] MEDS: RAMELTEON 8 MG TAB (ROZEREM) PO PRN (22:09)
[2021-05-19] MEDS: SUCRALFATE SUSP 1GM/10ML UD PO SCH ×3 (00:39→12:32)
[2021-05-19] MEDS: MORPHINE 10MG/0.5ML ORAL CONCENTRATE SOLUTION U/D SL PRN ×3 (02:24→12:32)
[2021-05-19 06:00] VITALS: BP 125/70
[2021-05-19] MEDS ORDERED: LevoFLOXacin 750 MG TABLET PO SCH (06:00)
[2021-05-19 08:32] LABS: BASO # 0.1 10^3/uL (0.0-0.2); BASO % 0.4 % (0.0-1.0); EOS # 0.1 10^3/uL (0.0-0.5); EOS % 0.6 % (0.0-3.0); HEMATOCRIT 32.6 % (42.0-52.0); HEMOGLOBIN 11.3 g/dl (13.5-17.5); LYMPH # 1.4 10^3/uL (1.5-5.0); LYMPH % 11.8 % (24.0-44.0); MEAN CORPUSCULAR HEMOGLOBIN 29.8 pg (27.0-33.0); MEAN CORPUSCULAR HGB CONC 34.7 g/dl (32.0-36.5); MONO # 1.2 10^3/uL (0.0-0.8); MONO % 10.3 % (2.0-8.0); NEUTROPHILS # 9.2 10^3/uL (1.5-8.5); NEUTROPHILS % 76.3 % (36.0-66.0); PLATELET COUNT, AUTOMATED 447 10^3/uL (150-450); RED BLOOD COUNT 3.79 10^6/uL (4.30-6.10)
[2021-05-19] MEDS: PANTOPRAZOLE 40MG VIAL (C9113 PER 1) IV SCH (08:36)
[2021-05-19 09:09] LABS: BLOOD UREA NITROGEN 8 MG/DL (7-18); CALCIUM LEVEL 8.9 MG/DL (8.8-10.2); CARBON DIOXIDE LEVEL 32 MEQ/L (21-32); CHLORIDE LEVEL 97 MEQ/L (98-107); GLOMERULAR FILTRATION RATE > 60.0 (>49); GLUCOSE, FASTING 85 MG/DL (70-100); POTASSIUM SERUM 3.6 MEQ/L (3.5-5.1); SODIUM LEVEL 135 MEQ/L (136-145)
[2021-05-19] MEDS ORDERED: VARIBAR PUDDING 40% w/v 230ML TUBE As Ordered ONE (10:36)
[2021-05-19] MEDS ORDERED: VARIBAR NECTAR 40% w/v 240ML SUSP BTL As Ordered ONE (10:36)
[2021-05-19] MEDS ORDERED: E-Z-PAQUE 96% w/w SUSP 176GM BTL As Ordered ONE (10:37)
[2021-05-19] MEDS ORDERED: BARIUM SULFATE 700 MG TABLET (E-Z-DISK) As Ordered ONE (10:37)
[2021-05-19] MEDS ORDERED: FAMO40TA3 PO (12:05)
--- NOTE | 2021-05-19 12:13 | DS.PDOC ---
Discharge Summary General Date of Admission May 11, 2021 at 15:52 Date of Discharge 05/19/21 Discharge Summary PROCEDURES PERFORMED DURING STAY: [None]. 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 The patient has required feeding tube placement after treatment with Diflucan for fungal esophagitis. Severe protein calorie malnutrition BMI of 13.4 Continue tube feedings with Jevity 1.5 DC pravastatin Esophageal candidiasis: The patient is to complete 14 days of Diflucan 200 Dysphagia Likely due to combination of radiation related fibrosis of the supraglottic area as well as candidiasis. Repeat cookie swallow after treatment of esophageal candidiasis shows immediate aspiration Status post PEG tube placement Patient has to be strict n.p.o. All nutrition and medications through PEG tube. 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 DISCHARGE MEDICATIONS: Please see below. ALLERGIES: Please see below. PHYSICAL EXAMINATION ON DISCHARGE: VITAL SIGNS: Please see below. General Exam: Positive: Alert, Cooperative, No Acute Distress Eye Exam: Positive: PERRLA, Conjunctiva & lids normal ENT Exam: Positive: Atraumatic, Mucous membr. moist/pink Chest Exam: Positive: Normal air movement, Diminished (Diminished at both the bases) Heart Exam: Positive: Rate Normal, Regular Rhythm, Normal S1, Normal S2; Negative: Murmurs, Rubs Abdomen Exam: Positive: Normal bowel sounds, Soft, Other (PEG tube in place); Negative: Tenderness Extremity Exam: Negative: Clubbing, Cyanosis, Edema Psych Exam: Positive: Memory Intact, Oriented x 3 LABORATORY DATA: Please see below. ACTIVITY: [As tolerated]. DIET: N.p.o., PEG tube feeding DISCHARGE PLAN: Home with services DISCHARGE INSTRUCTIONS: PMD in [address] Estrada in 1 to 2 weeks ITEMS TO FOLLOWUP ON ON OUTPATIENT: Follow-up final colonic biopsy results DISCHARGE CONDITION: [Stable]. TIME SPENT ON DISCHARGE: 35 minutes. Vital Signs/I&Os Vital Signs Date Time Temp Pulse Resp B/P (MAP) Pulse Ox O2 Delivery O2 Flow Rate FiO2 05/19/21 08:56 16 05/19/21 06:00 98.2 56 125/70 (88) 95 Room Air I&O- Last 24 Hours up to 6 AM 05/19/21 06:00 Intake Total 1090 ml Output Total 0 ml Balance 1090 ml Laboratory Data Labs 24H Laboratory Tests 2 05/19/21 08:13: Immature Granulocyte % (Auto) 0.6, Neutrophils (%) (Auto) 76.3H, Lymphocytes (%) (Auto) 11.8L, Monocytes (%) (Auto) 10.3H, Eosinophils (%) (Auto) 0.6, Basophils (%) (Auto) 0.4, Neutrophils # (Auto) 9.2H, Lymphocytes # (Auto) 1.4L, Monocytes # (Auto) 1.2H, Eosinophils # (Auto) 0.1, Basophils # (Auto) 0.1, Nucleated Red Blood Cells % (auto) 0.0, Anion Gap 6L, Glomerular Filtration Rate > 60.0, Calcium Level 8.9 CBC/BMP Laboratory Tests 05/19/21 08:13 Microbiology Microbiology 05/14/21 Gram Stain - Final, Complete 05/14/21 Sputum Culture - Final, Complete 05/13/21 Blood Culture - Final, Complete NO GROWTH AFTER 5 DAYS 05/13/21 Blood Culture - Final, Complete NO GROWTH AFTER 5 DAYS Discharge Medications Scheduled Aspirin (Ecotrin) 81 Mg Tablet.dr, 81 MG PO DAILY, (Reported) Famotidine (Famotidine) 40 Mg Tablet, 40 MG PO BID Fluconazole (Diflucan) 200 Mg Tablet, 200 MG PO DAILY for yeast infection Levofloxacin (Levofloxacin) 750 Mg Tablet, 750 MG PO DAILY Scheduled PRN Acetaminophen with Codeine (Acetaminophen-Cod #3 Tablet) 1 Each Tablet, 1 TAB PO Q6H PRN for PAIN, (Reported) Morphine Sulfate (Morphine Sulfate Concentrate) 100 Mg/5 Ml Solution, 10 MG PEG Q4HP PRN for SEVERE PAIN (PS 8-10) Allergies Coded Allergies: No Known Allergies (Unverified , 05/05/21) Donya Cristina MD May 19, 2021 12:13
[2021-05-19] MEDS ORDERED: ROXI1TAB2 PEG (14:59)
--- NOTE | 2021-05-19 16:28 | REP ---
INDICATION: possible aspiration. COMPARISON: NONE TECHNIQUE: The procedure was performed under the direct supervision of . The procedure was performed with Clau Dos Santos from speech pathology present. 5 CC aliquots of nectar consistency barium was administered. 0.6 minutes of fluoroscopy time was utilized for this procedure. FINDINGS: Honey consistency: The patient does not appear to be able to form a bolus by cupping of the tongue. There is delay in triggering of deglutition. There is pooling in the vallecula which then spills into the Piriform sinuses. When swallowing is initiated the epiglottis does not invert. The patient then aspirated with cough response.. Passavant's pad luisito and shifted posteriorly normally with no nasopharyngeal aspiration. A detailed report of this examination will be provided by speech pathology. IMPRESSION: There is aspiration with honey consistency barium as described above. A detailed report of this examination will be provided by speech pathology. <Electronically signed by José Miguel Valladares > 05/19/21 1524 <Electronically signed by Logan Samuels > 05/19/21 1516
== END 2021-05-19 15:25 | disposition home health service (06) | DRG 368 ==
LOC: M OPP 10:44 → M ED INP 15:52 → M MSPAV 17:50
PROVIDERS: ADMIT General Practice; ATTEND Internal Medicine Nephrology
PROC: 0DJ08ZZ Inspection of Upper Intestinal Tract, Via Natural or Artificial Opening Endoscopic (ICD-10-PCS; 2021-05-11)
PROC: 0DBK8ZX Excision of Ascending Colon, Via Natural or Artificial Opening Endoscopic, Diagnostic (ICD-10-PCS; 2021-05-11)
PROC: 0DBM8ZX Excision of Descending Colon, Via Natural or Artificial Opening Endoscopic, Diagnostic (ICD-10-PCS; 2021-05-11)
PROC: 0DBN8ZX Excision of Sigmoid Colon, Via Natural or Artificial Opening Endoscopic, Diagnostic (ICD-10-PCS; 2021-05-11)
PROC: 0DH64UZ Insertion of Feeding Device into Stomach, Percutaneous Endoscopic Approach (ICD-10-PCS; principal; 2021-05-14 12:39)
DX: B37.81 Candidal esophagitis (principal); J69.0 Pneumonitis due to inhalation of food and vomit; E43 Unspecified severe protein-calorie malnutrition; R64 Cachexia; K63.3 Ulcer of intestine; Z68.1 Body mass index [BMI] 19.9 or less, adult; R13.10 Dysphagia, unspecified; L59.9 Disorder of the skin and subcutaneous tissue related to radiation, unspecified; E87.6 Hypokalemia; E88.09 Other disorders of plasma-protein metabolism, not elsewhere classified; R62.7 Adult failure to thrive; Z92.3 Personal history of irradiation; Z92.21 Personal history of antineoplastic chemotherapy; Z85.21 Personal history of malignant neoplasm of larynx; Z79.82 Long term (current) use of aspirin; D72.829 Elevated white blood cell count, unspecified; K63.5 Polyp of colon

== ENCOUNTER → 2021-09-23 | Outpatient (CLI) | payer MEDICARE ==
[~2021-09-23] MED LIST changes: +DIFL200T PO; +FAMO40TA3 PO; +LEVO750T13 PO; +LIDOCAINE 1% MDV 20ML VIAL As Ordered ONE; +MIDAZOLAM INJ 2MG/2ML VIAL (J2250 PER 1MG) As Ordered ONE; +MIRA3350 PO; +MORP1SOL PEG; -NS 1,000 ML IV ONE; +NS 1,000 ML IV SCH; +OMEP40CA4 PEG; +PRAV40TA2; +PREG150C; +ROXI1TAB2 PEG; +ceFAZolin 2 GM/D5W 50 ML IV BAG (J0690 PER 500MG) As Ordered ONE; +ceFAZolin SOD 2 GM in IV 1 EA IV ONE; +diphenhydrAMINE 50MG/ML VIAL (J1200) As Ordered ONE; +fentaNYL 100 MCG/2 ML INJECTION (J3010) As Ordered ONE
[2021-09-23 16:05] VITALS: BP 118/65
== END ==
LOC: M IRPRO 10:37
PROVIDERS: ATTEND Internal Medicine Medical Oncology
DX: C81.98 Hodgkin lymphoma, unspecified, lymph nodes of multiple sites (principal)
CPT/HCPCS: 36561; 99152; 99153; C1769; C1788; C1894; J0690; J1642; J1644; J2250; J3010

== ENCOUNTER → 2021-10-01 | Outpatient (CLI) | payer MEDICARE ==
[~2021-10-01] MED LIST changes: -LIDOCAINE 1% MDV 20ML VIAL As Ordered ONE; -MIDAZOLAM INJ 2MG/2ML VIAL (J2250 PER 1MG) As Ordered ONE; -NS 1,000 ML IV SCH; -ceFAZolin 2 GM/D5W 50 ML IV BAG (J0690 PER 500MG) As Ordered ONE; -ceFAZolin SOD 2 GM in IV 1 EA IV ONE; -diphenhydrAMINE 50MG/ML VIAL (J1200) As Ordered ONE; -fentaNYL 100 MCG/2 ML INJECTION (J3010) As Ordered ONE
== END ==
LOC: M CARPUL 08:58
PROVIDERS: ATTEND Internal Medicine Medical Oncology
DX: C81.98 Hodgkin lymphoma, unspecified, lymph nodes of multiple sites (principal); I35.0 Nonrheumatic aortic (valve) stenosis; I27.20 Pulmonary hypertension, unspecified

== ENCOUNTER → 2021-10-11 | Outpatient (CLI) | payer MEDICARE | LOC: M PLARAD 12:54 | PROVIDERS: ATTEND Internal Medicine Medical Oncology | DX: C81.98 Hodgkin lymphoma, unspecified, lymph nodes of multiple sites (principal); N62 Hypertrophy of breast; I70.0 Atherosclerosis of aorta; I71.4 Abdominal aortic aneurysm, without rupture | CPT/HCPCS: 78815; A9552 ==

== ENCOUNTER → 2021-10-12 | Outpatient (POV) | payer MEDICARE ==
[~2021-10-12] VITALS: Ht 175.3 cm; Wt 50.0 kg
[2021-10-12 09:35] VITALS: BP 112/75
== END ==
LOC: M IRPOV 09:30
PROVIDERS: ATTEND Radiology Diagnostic Radiology
DX: Z45.2 Encounter for adjustment and management of vascular access device (principal)

== ENCOUNTER → 2021-10-27 | Outpatient (CLI) | payer MEDICARE | LOC: M CARPUL 12:43 | PROVIDERS: ATTEND Internal Medicine Medical Oncology | DX: C81.98 Hodgkin lymphoma, unspecified, lymph nodes of multiple sites (principal) ==

== ENCOUNTER → 2021-12-13 | Outpatient (CLI) | payer MEDICARE ==
[~2021-12-13] MED LIST changes: +FLUO20CA22 PO; +HYDR-3363 PO; +LEUK2TAB8 PO; +OMEP40CA5 PO; +ONDA-84 PO; -PRAV40TA2; +PRED20TA PO; +[UNRECOGNIZED DRUG - CODE] PO
== END ==
LOC: M LABSMTC 11:45
PROVIDERS: ATTEND Anesthesiology
DX: Z20.828 Contact with and (suspected) exposure to other viral communicable diseases (principal); Z11.59 Encounter for screening for other viral diseases

== ENCOUNTER 2021-12-17 06:40 | Day surgery (SDC) | payer MEDICARE ==
[~2021-12-17] VITALS: Ht 175.3 cm; Wt 52.5 kg
[~2021-12-17 06:40] MED LIST changes: +NS 1,000 ML IV ONE
[2021-12-17] MEDS ORDERED: propofoL 200 MG/20 ML VIAL As Ordered ONE (07:40)
[2021-12-17] MEDS ORDERED: LIDOCAINE 2% 100MG/5ML SDV (FOR ANES.) As Ordered ONE (07:40)
[2021-12-17] MEDS ORDERED: fentaNYL 100 MCG/2 ML INJECTION As Ordered ONE (07:40)
[2021-12-17] MEDS ORDERED: ePHEDrine SULFATE 25 MG/5 ML(5MG/ML) SYRINGE As Ordered ONE (07:51)
[2021-12-17 08:20] VITALS: BP 101/58
== END 2021-12-17 08:31 | disposition home or self-care (01) ==
LOC: M OPP 06:40
PROVIDERS: ATTEND Internal Medicine Gastroenterology
DX: R13.10 Dysphagia, unspecified (principal); K94.23 Gastrostomy malfunction; Z79.82 Long term (current) use of aspirin; Z79.899 Other long term (current) drug therapy
CPT/HCPCS: 43246; 43247; J3010

== ENCOUNTER → 2022-01-31 | Outpatient (CLI) | payer MEDICARE ==
[~2022-01-31] MED LIST changes: +GABA-1171 PO; -NS 1,000 ML IV ONE
== END ==
LOC: M CARPUL 09:48
PROVIDERS: ATTEND Internal Medicine Medical Oncology
DX: C81.10 Nodular sclerosis Hodgkin lymphoma, unspecified site (principal); I35.8 Other nonrheumatic aortic valve disorders

== ENCOUNTER → 2022-02-15 | Outpatient (CLI) | payer MEDICARE ==
[~2022-02-15] MED LIST changes: +OXYC1TAB23 PO
== END ==
LOC: M PLARAD 12:06
PROVIDERS: ATTEND Internal Medicine Medical Oncology
DX: C81.1 Nodular sclerosis Hodgkin lymphoma (principal); I71.4 Abdominal aortic aneurysm, without rupture; N43.3 Hydrocele, unspecified
CPT/HCPCS: 78815; A9552

== ENCOUNTER → 2022-04-18 | Outpatient (CLI) | payer MEDICARE ==
[~2022-04-18] MED LIST changes: +FLUC100T3; +LEVO1TAB40 PO; -LEVO750T13 PO
== END ==
LOC: M PLARAD 11:12
PROVIDERS: ATTEND Internal Medicine Medical Oncology
DX: C81.1 Nodular sclerosis Hodgkin lymphoma (principal); I71.4 Abdominal aortic aneurysm, without rupture; I72.3 Aneurysm of iliac artery
CPT/HCPCS: 78815; A9552

== ENCOUNTER → 2022-05-24 | Outpatient (POV) | payer MEDICARE ==
[~2022-05-24] VITALS: Ht 175.3 cm; Wt 52.2 kg
[2022-05-24 13:20] VITALS: BP 113/78
== END ==
LOC: M IRPOV 13:12
PROVIDERS: ATTEND Radiology Diagnostic Radiology
DX: C81.90 Hodgkin lymphoma, unspecified, unspecified site (principal); Z45.2 Encounter for adjustment and management of vascular access device

== ENCOUNTER → 2022-06-01 | Outpatient (CLI) | payer MEDICARE | LOC: M LABSMTC 11:06 | PROVIDERS: ATTEND Anesthesiology | DX: Z01.812 Encounter for preprocedural laboratory examination (principal); Z20.822 Contact with and (suspected) exposure to COVID-19 ==

== ENCOUNTER → 2022-06-06 | Outpatient (CLI) | payer MEDICARE ==
[~2022-06-06] MED LIST changes: +LIDOCAINE 1% MDV 20ML VIAL As Ordered ONE; +MIDAZOLAM INJ 2MG/2ML VIAL (J2250 PER 1MG) As Ordered ONE; +NS 1,000 ML IV SCH; +ceFAZolin 2 GM/D5W 50 ML IV BAG (J0690 PER 500MG) As Ordered ONE; +ceFAZolin SOD 2 GM in IV 1 EA IV ONE; +diphenhydrAMINE 50MG/ML VIAL (J1200) As Ordered ONE; +fentaNYL 100 MCG/2 ML INJECTION As Ordered ONE
[2022-06-06 16:30] VITALS: BP 121/81
== END ==
LOC: M IRPRO 11:40
PROVIDERS: ATTEND Radiology Diagnostic Radiology
DX: Z45.2 Encounter for adjustment and management of vascular access device (principal); C85.90 Non-Hodgkin lymphoma, unspecified, unspecified site; Z79.82 Long term (current) use of aspirin; Z79.899 Other long term (current) drug therapy
CPT/HCPCS: 36590; 99152; J0690; J1644; J2250; J3010